=== PATIENT | male | born 1935 | race Caucasian/White ===

== ENCOUNTER 2016-11-29 14:04 | Outpatient (CLI) | payer MEDICARE, OTHER | END 2016-11-29 14:05 | disposition home or self-care (01) | DX: G47.33 Obstructive sleep apnea (adult) (pediatric) (principal) | CPT/HCPCS: 99214; G0463 ==

== ENCOUNTER 2016-12-31 11:24 | Outpatient (CLI) | payer MEDICARE, OTHER ==
[2016-12-31] MEDS ORDERED: GADOBUTROL 7.5 MMOL/7.5 ML VIAL IVP ONE (12:46)
== END 2016-12-31 11:25 | disposition home or self-care (01) ==
DX: I66.01 Occlusion and stenosis of right middle cerebral artery (principal); I77.9 Disorder of arteries and arterioles, unspecified; I65.22 Occlusion and stenosis of left carotid artery; Z79.1 Long term (current) use of non-steroidal anti-inflammatories (NSAID); R26.0 Ataxic gait
CPT/HCPCS: 36415; 70544; 70549; 82565; A9585

== ENCOUNTER 2017-09-05 08:00 | Outpatient (CLI) | payer MEDICARE, OTHER ==
[2017-09-05 13:57] LABS: BASOPHILS # (AUTO) 0.1 10^3/uL (0.0-0.1); BASOPHILS % (AUTO) 0.9 %; EOSINOPHILS # (AUTO) 0.3 10^3/uL (0.0-0.7); EOSINOPHILS % (AUTO) 5.2 %; HCT - HEMATOCRIT 28.5 % (42.0-52.0); HGB - HEMOGLOBIN 9.5 g/dL (14.0-18.0); LYMPHOCYTES # (AUTO) 1.1 10^3/uL (1.5-3.5); LYMPHOCYTES % (AUTO) 17.3 %; MEAN CORPUSCULAR HEMOGLOBIN 31.3 pg (27.0-31.0); MEAN CORPUSCULAR HGB CONC 33.3 g/dL (32.0-36.0); MEAN PLATELET VOLUME 7.8 fL (7.4-11.4); MONOCYTES # (AUTO) 0.8 10^3/uL (0.0-1.0); MONOCYTES % (AUTO) 12.2 %; NEUTROPHILS # (AUTO) 4.2 10^3/uL (1.5-6.6); NEUTROPHILS % (AUTO) 64.4 %; RED BLOOD COUNT 3.03 10^6/uL (4.70-6.10); RED CELL DISTRIBUTION WIDTH 13.7 % (12.0-15.0); UNCORRECTED WHITE BLOOD COUNT 6.5 x10^3/uL; WHITE BLOOD COUNT 6.5 x10^3/uL (4.8-10.8)
[2017-09-05 14:25] LABS: ALBUMIN/GLOBULIN RATIO 1.1 (1.0-2.2); BILIRUBIN,TOTAL 0.4 mg/dL (0.2-1.0); BUN - BLOOD UREA NITROGEN 31 mg/dL (6-20); CALCIUM 9.1 mg/dL (8.5-10.3); CARBON DIOXIDE - CO2 25 mmol/L (21-32); CHLORIDE 105 mmol/L (101-111); CHOL/HDL RATIO 3.4 (<5.0); CHOLESTEROL 120 mg/dL; CREATININE 1.5 mg/dL (0.6-1.2); GFR - MDRD 45 (>89); GLUCOSE 131 mg/dL (70-100); HDL CHOLESTEROL 35 mg/dL; LDL/HDL RATIO 1.8 (<3.6); POTASSIUM 4.6 mmol/L (3.5-5.0); SODIUM 138 mmol/L (135-145); TOTAL PROTEIN 7.2 g/dL (6.7-8.2); TRIGLYCERIDES 115 mg/dL; VLDL CHOLESTEROL 23 mg/dL
[2017-09-05 14:47] LABS: HEMOGLOBIN A1C 0.4 g/dL
== END 2017-09-05 08:01 | disposition home or self-care (01) ==
LOC: LAB.N 08:00
PROVIDERS: ATTEND Internal Medicine
DX: D64.9 Anemia, unspecified (principal); E11.49 Type 2 diabetes mellitus with other diabetic neurological complication; N40.0 Benign prostatic hyperplasia without lower urinary tract symptoms; I10 Essential (primary) hypertension
CPT/HCPCS: 36415; 80053; 80061; 83036; 84443; 85025

== ENCOUNTER 2017-12-09 09:14 | Outpatient (CLI) | payer MEDICARE, OTHER ==
[2017-12-09 12:53] LABS: MEAN RETIC VALUE 110.3; RED BLOOD COUNT 3.11 10^6/uL (4.70-6.10)
[2017-12-09 13:03] LABS: FERRITIN 53.6 ng/mL (23.9-336.2)
== END 2017-12-09 09:15 | disposition home or self-care (01) ==
LOC: LAB.N 09:14
PROVIDERS: ATTEND Internal Medicine
DX: D64.9 Anemia, unspecified (principal)
CPT/HCPCS: 36415; 82607; 82728; 83010; 85044; 86880

== ENCOUNTER 2017-12-27 13:09 | Outpatient (CLI) | payer MEDICARE, OTHER | END 2017-12-27 13:10 | disposition home or self-care (01) | LOC: SC 13:09 | PROVIDERS: ATTEND Nurse Practitioner Family | DX: G47.33 Obstructive sleep apnea (adult) (pediatric) (principal) | CPT/HCPCS: 99214; G0463; 99212 ==

== ENCOUNTER 2018-08-02 18:37 | Outpatient (CLI) | payer MEDICARE, OTHER | END 2018-08-02 18:38 | disposition short-term general hospital (02) | LOC: EMS 18:37 | PROVIDERS: ATTEND Surgery | DX: R11.2 Nausea with vomiting, unspecified (principal); R50.9 Fever, unspecified | CPT/HCPCS: A0425; A0429 ==

== ENCOUNTER 2019-01-10 12:58 | Outpatient (CLI) | payer MEDICARE, OTHER | END 2019-01-10 12:59 | disposition home or self-care (01) | LOC: SC 12:58 | PROVIDERS: ATTEND Nurse Practitioner Family | DX: G47.33 Obstructive sleep apnea (adult) (pediatric) (principal) | CPT/HCPCS: 99214; G0463; 99212 ==

== ENCOUNTER 2020-01-02 10:45 | Outpatient (CLI) | payer MEDICARE, OTHER ==
[2020-01-02 12:39] LABS: HB2 TOTAL 9.6 g/dL; HEMOGLOBIN A1C 0.52 g/dL; HEMOGLOBIN A1C % 7.1 % (4.6-6.2)
== END 2020-01-02 23:59 | disposition home or self-care (01) ==
LOC: LAB.N 10:45
PROVIDERS: ATTEND Family Medicine
DX: E11.49 Type 2 diabetes mellitus with other diabetic neurological complication (principal)
CPT/HCPCS: 36415; 83036

== ENCOUNTER 2020-01-09 12:46 | Outpatient (CLI) | payer MEDICARE, OTHER ==
[2020-01-09 13:38] VITALS: BP 150/60
--- NOTE | 2020-01-09 13:38 | SLEEP CARE CONSULTATION ---
Information from patient questionnaire entered by Yanet Ellis. I have reviewed and concur with the information entered by Yanet Ellis. This document represents the service I personally performed and the decisions made by me, Marilou Acosta, RN, MSN, WAREHOUSE ORDER SELECTOR. History of Present Illness Previous diagnosis: Mild, Obstructive Sleep Apnea-Hypopnea Syndrome AHI: 7.9 Reason for follow up: annual (last seen 2019) Equipment type: CPAP Equipment obtained from: [facility] (having difficulty getting supplies despite repeated attempts) Mask style: Nasal (Wisp) Mask brand: Respironics Backup mask available: Yes (old full face ) Last cushion change: about a year CPAP Compliance Data - Data Reviewed with Patient Average duration of nightly device use: 7.2 Compliance rate %: 88.9 (180 days) Current pressure setting (cmH2O): 10-12 Humidity settin Heated hose settin Average residual AHI: 2.3 Average large leak: 14 min 47 sec the past month when hose disconnects Subjective Patient concerns: reports: mask leak noise (when hose disconnects the last few weeks ), condensation in mask/hose (occasionally - last time a few weeks ago ), dry mouth, nose, throat (nose and mouth - moderate intermittently ). denies: aerophagia, mask discomfort, air blowing in eyes, nasal congestion, epistaxis Observed to snore while using device: No Current pressure setting perceived as: comfortable On therapy, patient: reports: sleeping better, awakening more refreshed, being more awake and alert during the day, more rested overall. denies: drowsiness while driving Initial Prosper Sleepiness Scale score: 4 Current Prosper Sleepiness Scale score: 10 (not using CPAP for 2 weeks due to hose problems ) Allergies and Home Medications Known drug allergies: No Home medication list reviewed: Yes Allergy and home medication list: Medication List Medication Name (generic/name brand) Strength & Dosage Metformin 850mg tab one daily Glipizide 5mg tab one daily Lisinopril 10mg tablet 1 daily Methotrexate 2.5mg tab four once weekly Finesteride 5mg tablet 1 daily Tamsulosin 0.4mg tab one daily Centrum Silver Tab one daily Vitamin C 1000mg tab one daily Zinc 15mg tab one daily Vitamin B complex Tab one daily Folic Acid 400mg tab two daily salmon oil 1 daily garlic 1 daily Physical Exam Blood Pressure: 150/60 Cuff size: long Heart Rate: 72 O2 Saturation: 98 Height: 6 ft Weight: 196 lb 12.8 oz Body Mass Index: 26.6 BMI Classification: Overweight Impression and Plan 1. Obstructive Sleep Apnea-Hypopnea Syndrome, mild, with good treatment compliance and good apnea control. On CPAP therapy, the patient has better sleep quality and is more rested overall when he uses it. The last 2 weeks he has not been using his CPAP due to hose disconnecting from mask and is tired today. His supplies are old as he is unable to get [facility] to order. For patient supply concerns. Patient was notified that another DME can be used. I will have my skill training program coordinator inform of DME options. A DWO prescription will then be made. Patient advised to contact this office if further supply problems. Questions about supplies and replacement were answered. In addition, I gave patient a copy of the CPAP supply replacement schedule and discussed rationale for updating equipment. Oral dryness can be reduced by adjusting humidity setting higher to 4 or 5 and can also adjust heated hose lower to 2 if needed. Printed instructions given on how to change humidity and heated hose settings with rationale explaining why to change. Oral dryness can also be reduced by reducing mask leaks. Patient advised that chronic oral dryness can affect dental health and advised to follow up with dentist. In addition, there are oral dryness products that can be used to reduce dryness such as Biotene products, Dry mouth rinse. Patient to discuss best option with dentist. He is also advised to use his saline nasal spray prior to CPAP for added moisture to reduce nasal dryness. Patient's apnea severity and rationale for treatment to reduce apnea, improve sleep quality and reduce cardiovascular and cerebrovascular events was reviewed. I also reviewed the benefit of consistent device use of CPAP for hypertension, diabetes. * Continue CPAP pressure at 10-12 cmH2O * Implement methods to reduce oral and nasal dryness * Transfer to new DME * Notify me if snoring with mask or feeling that the pressure is too much or too little * Attempt to lose weight * Call this office if any problems using CPAP * Return for follow up in 1 year , or sooner if concerns arise Time Spent with Patient (minutes): 31 I spent 100% of this visit face to face with the patient with greater than 50% of this was spent time counseling the patient and coordination of care.
== END 2020-01-09 12:47 | disposition home or self-care (01) ==
LOC: SC 12:46
PROVIDERS: ATTEND Nurse Practitioner Family
DX: G47.33 Obstructive sleep apnea (adult) (pediatric) (principal); E66.3 Overweight; Z68.26 Body mass index [BMI] 26.0-26.9, adult
CPT/HCPCS: 99214; G0463; 99212

== ENCOUNTER 2020-02-14 13:30 | Outpatient (CLI) | payer MEDICARE, OTHER | END 2020-02-14 13:31 | disposition EMS.NT | LOC: EMS 13:30 | PROVIDERS: ATTEND Surgery | DX: R73.09 Other abnormal glucose (principal) ==

== ENCOUNTER 2020-06-16 14:24 | Outpatient (CLI) | payer MEDICARE, OTHER | END 2020-06-16 14:25 | disposition EMS.NT | LOC: EMS 14:24 | PROVIDERS: ATTEND Surgery | DX: R41.82 Altered mental status, unspecified (principal); R53.1 Weakness; R73.09 Other abnormal glucose ==

== ENCOUNTER 2021-12-02 16:41 | Outpatient (CLI) | payer MEDICARE, OTHER | END 2021-12-02 16:42 | disposition EMS.NT | LOC: EMS 16:41 | DX: M54.50 Low back pain, unspecified (principal); R53.1 Weakness ==

== ENCOUNTER 2021-12-07 10:16 | Outpatient (CLI) | payer MEDICARE, OTHER | END 2021-12-07 10:17 | disposition short-term general hospital (02) | LOC: EMS 10:16 | DX: R53.1 Weakness (principal); R42 Dizziness and giddiness | CPT/HCPCS: A0425; A0429 ==

== ENCOUNTER 2023-04-23 07:04 | Outpatient (CLI) | payer MEDICARE, OTHER | END 2023-04-23 07:05 | disposition critical access hospital (66) | LOC: EMS 07:04 | DX: R53.1 Weakness (principal); R42 Dizziness and giddiness; R26.81 Unsteadiness on feet; R32 Unspecified urinary incontinence; R63.8 Other symptoms and signs concerning food and fluid intake | CPT/HCPCS: A0425; A0429 ==

== ENCOUNTER 2023-04-23 07:39 | Inpatient (IN) | payer MEDICARE, OTHER ==
[2023-04-23] MEDS ORDERED: SODIUM CHLORIDE 0.9% 1,000 ML IV STA ×2 (07:54→08:58)
--- NOTE | 2023-04-23 07:57 | ED Physician Documentation ---
PD HPI FOCAL NEURO - Stated complaint Stated Complaint: Weakness - History obtained from History obtained from: Patient, EMS (noted urination on bed. no stool. They felt left arm was weaker. Pt unable to stand on his own.) - History of Present Illness Timing - onset: Yesterday Timing - duration: Hours (somewhere 12-18 hours) Timing - details: Gradual onset Severity of deficit: Moderate (he noted onset and progression of general weakness, with some more symptoms left arm/leg than right, but weak overall as well. he states unable to get from bed to bathroom starting yesterday due to leg weakness.) Weakness: Arm, Leg, Left. No: Face Numbness: No: Face, Arm, Leg Associated symptoms: No: Headache, Nausea / vomiting (but has decreased appetite for the past week with poor food intake, and he states less fluids (mostly drinking coffee).), Syncope Contributing factors: positive: Other (he states just lisinopril med for BP. Denies other meds nor recent change in meds.). negative: Vascular dz, Atrial fibrillation Baseline status: positive: A&OX3, ambulatory, indep Similar symptoms before: Has not had sx before Recently seen: Not recently seen Review of Systems Constitutional: reports: Fatigue, Weight Loss (16 lbs in the past 2 months, gradual. But he states has had less appetite during that time, and particularly the past week.). denies: Fever Nose: denies: Rhinorrhea / runny nose, Congestion Throat: denies: Sore throat Cardiac: denies: Chest pain / pressure Respiratory: denies: Dyspnea, Cough : denies: Dysuria PD PAST MEDICAL HISTORY - Past Medical History Cardiovascular: Hypertension, High cholesterol Respiratory: Sleep apnea, Other Endocrine/Autoimmune: Type 2 diabetes : Benign prostate hypertrophy Derm: Psoriasis - Past Surgical History Past Surgical History: Yes - Present Medications Home Medications: Ambulatory Orders Medication Instructions Recorded Confirmed Finasteride 1 tab PO DAILY 06/28/15 08/06/20 Metformin HCl 850 mg PO BID 06/28/15 08/06/20 Methotrexate [Methotrexate Sodium] 10 tab PO DAILY 06/28/15 08/06/20 Tamsulosin [Flomax] 1 tab PO DAILY 06/28/15 08/06/20 glipiZIDE [Glipizide] 5 mg PO BID 06/28/15 08/06/20 lisinopriL [Lisinopril] 10 mg PO DAILY 06/28/15 08/06/20 Melatonin 3 mg PO DAILY PRN 03/05/19 04/23/23 Losartan Potassium 25 mg PO DAILY 04/23/23 04/23/23 - Allergies Allergies/Adverse Reactions: Allergies Allergy/AdvReac Type Severity Reaction Status Date / Time No Known Drug Allergies Allergy Verified 04/23/23 07:47 - Social History Does the pt smoke?: No Smoking Status: Never smoker Does the pt drink ETOH?: No Does the pt have substance abuse?: No - Immunizations Immunizations are current?: No Immunizations: TDAP >10years/unknown - POLST Patient has POLST: Yes PD ED PE NORMAL - Vitals Vital signs reviewed: Yes - General General: Alert and oriented X 3, No acute distress, Other (shaky with some tremoring generally. ). No: Well developed/nourished (appears thin but still muscle tone. ) - HEENT HEENT: Pharynx benign. No: Moist mucous membranes - Neck Neck: Supple, no meningeal sign, No adenopathy - Cardiac Cardiac: RRR, No murmur - Respiratory Respiratory: Clear bilaterally - Abdomen Abdomen: Soft, Non tender - Male Male : Deferred - Rectal Rectal: Deferred - Derm Derm: Normal color, Warm and dry - Extremities Extremities: Normal ROM s pain, No edema, No calf tenderness / cord - Neuro Neuro: Alert and oriented X 3, machine setter 2-12 intact, No sensory deficit, Normal speech, Other (left arm with some drift, left leg as well. No noted facial weakness. ) Eye Opening: Spontaneous Motor: Obeys Commands Verbal: Oriented GCS Score: 15 NIHSS - Level of Consciousness Level of consciousness: (0) Alert, Keenly responsive LOC Questions: (0) Answers both Q's correct LOC Commands: (0) Performs both correctly - Gaze Best Gaze: (0) Normal - Visual Visual: (0) No loss - Facial Palsy Facial Palsy: (0) Normal, symmetrical movement - Motor Arms (both separate) Motor Arm (right): (0) No drift Motor Arm (left): (1) Drift - Motor Legs (both separate) Motor Leg (right): (0) No drift Motor Leg (left): (1) Drift - Limb Ataxia Limb Ataxia: (1) Present in 1 limb - Sensory Sensory: (0) Normal - Best Language Best Language: (0) No aphasia - Dysarthria Dysarthria: (0) Normal - Extinction and Inattention (formally neg Extinction and inattention: (0) No abnormality - Total Score/Results Total Score/Result: 3 Results - Vitals Vitals: Vital Signs - 24 hr 04/23/23 04/23/23 04/23/23 07:47 08:46 11:11 Temperature 36.9 C Heart Rate 82 108 H 83 Respiratory 22 16 19 Rate Blood Pressure 139/101 H 141/66 H 185/88 H O2 Saturation 99 100 100 Oxygen O2 Source Room air - EKG (time done) 08:07 EKG releavant findings:: EKG personally interpreted by author of this note. Relevant findings are: Rate: Rate (enter#) (83) Rhythm: NSR, Other (baseline tremor artifact) [place]: Normal Intervals: Prolonged AL Ischemia: Normal ST segments. No: ST elevation c/w ischemia Compare to prior EKG: Old EKG unavailable Computer interpretation: Disagree with computer - Labs Labs: Laboratory Tests 04/23/23 04/23/23 04/23/23 08:06 08:06 08:06 WBC 14.0 H RBC 3.50 L Hgb 10.1 L Hct 32.4 L MCV 92.6 MCH 28.9 MCHC 31.2 L RDW 14.2 Plt Count 307 MPV 9.4 Neut # (Auto) 11.1 H Lymph # (Auto) 1.2 L [place] # (Auto) 1.4 H Eos # (Auto) 0.2 Baso # (Auto) 0.1 Absolute Nucleated RBC 0.00 Nucleated RBC % 0.0 Sodium 140 Potassium 4.0 Chloride 108 Carbon Dioxide 26 Anion Gap 6.0 BUN 34 H Creatinine 1.6 H Estimated GFR (MDRD) 41 L Glucose 132 H Lactic Acid 1.1 Calcium 8.9 Magnesium 1.8 Total Bilirubin 0.5 AST 30 ALT 17 Alkaline Phosphatase 75 Total Protein 7.6 Albumin 3.8 Globulin 3.8 Albumin/Globulin Ratio 1.0 Lipase 45 TSH Urine Color Urine Clarity Urine pH Ur Specific [place] Urine Protein Urine Glucose (UA) Urine Ketones Urine Occult Blood Urine Nitrite Urine Bilirubin Urine Urobilinogen Ur Leukocyte Esterase Ur Microscopic Review Urine Culture Comments Nasal Adenovirus (PCR) Nasal B. parapertussis DNA (PCR) Nasal Coronavir 229E PCR Nasal Coronavir HKU1 PCR Nasal Coronavir NL63 PCR Nasal Coronavir OC43 PCR Nasal Enterovir/Rhinovir PCR Nasal Influenza B PCR Nasal Influenza A PCR Nasal Parainfluen 1 PCR Nasal Parainfluen 2 PCR Nasal Parainfluen 3 PCR Nasal Parainfluen 4 PCR Nasal RSV (PCR) Nasal B.pertussis DNA PCR Nasal C.pneumoniae (PCR) Louie Human Metapneumo PCR Nasal M.pneumoniae (PCR) Nasal SARS-CoV-2 (PCR) 04/23/23 04/23/23 04/23/23 08:06 08:10 08:15 WBC RBC Hgb Hct MCV MCH MCHC RDW Plt Count MPV Neut # (Auto) Lymph # (Auto) [place] # (Auto) Eos # (Auto) Baso # (Auto) Absolute Nucleated RBC Nucleated RBC % Sodium Potassium Chloride Carbon Dioxide Anion Gap BUN Creatinine Estimated GFR (MDRD) Glucose Lactic Acid Calcium Magnesium Total Bilirubin AST ALT Alkaline Phosphatase Total Protein Albumin Globulin Albumin/Globulin Ratio Lipase TSH 1.65 Urine Color YELLOW Urine Clarity CLEAR Urine pH 6.0 Ur Specific [place] 1.010 Urine Protein TRACE Urine Glucose (UA) NEGATIVE Urine Ketones NEGATIVE Urine Occult Blood TRACE-INTA Urine Nitrite NEGATIVE Urine Bilirubin NEGATIVE Urine Urobilinogen 0.2 (NORMAL) Ur Leukocyte Esterase NEGATIVE Ur Microscopic Review NOT INDICATED Urine Culture Comments NOT INDICATED Nasal Adenovirus (PCR) NOT DETECTED Nasal B. parapertussis DNA (PCR) NOT DETECTED Nasal Coronavir 229E PCR NOT DETECTED Nasal Coronavir HKU1 PCR NOT DETECTED Nasal Coronavir NL63 PCR NOT DETECTED Nasal Coronavir OC43 PCR NOT DETECTED Nasal Enterovir/Rhinovir PCR NOT DETECTED Nasal Influenza B PCR NOT DETECTED Nasal Influenza A PCR NOT DETECTED Nasal Parainfluen 1 PCR NOT DETECTED Nasal Parainfluen 2 PCR NOT DETECTED Nasal Parainfluen 3 PCR NOT DETECTED Nasal Parainfluen 4 PCR NOT DETECTED Nasal RSV (PCR) NOT DETECTED Nasal B.pertussis DNA PCR NOT DETECTED Nasal C.pneumoniae (PCR) NOT DETECTED Louie Human Metapneumo PCR NOT DETECTED Nasal M.pneumoniae (PCR) NOT DETECTED Nasal SARS-CoV-2 (PCR) NOT DETECTED - Rads (name of study) head CT Relevant Findings:: Prelim report reviewed (no acute abnormalities), EMP independent interpretation of test, See rad report brain MRI Relevant Findings:: Prelim report reviewed (multiple small acute infarcts right MCA distribution. ), See rad report chest xray Relevant Findings:: Prelim report reviewed, EMP independent interpretation of test (no acute process), See rad report PD Medical Decision Making - ED course Complexity details: reviewed results, considered differential (Regarding poor appetite, weight loss, general weakness, consideration of metabolic disorders versus an infection versus thyroid or diabetes. He does seem under hydrated. Then with the parent left arm and leg weakness, consider concomitant CVA or brain structural abnormality.) ED course: The patient with onset yesterday and worsening overnight of left-sided weakness of arm and leg. No other notable symptoms. No prior similar. Evaluation here for metabolic disorders as well as rhythm disturbance or infections as not found other obvious cofactors. Chest x-ray is clear. Respiratory panel is normal. Basic blood count shows anemia but at a baseline level. There is mild renal insufficiency 1.4 creatinine but is at a baseline level compared to prior labs. No major electrolyte problems. The head CT did not show any acute abnormalities. We were able to get an MRI of the brain at this time. It took a few hours but able to get it done this morning. It did show several small infarcts in the right MCA distribution. Consideration would be a major vessel occlusion that broke up into small pieces but has not present as an LVO right now. Other consideration would be embolic and needs evaluation for that. Speaking against the embolic idea would be that they are all in the MCA d istribution and not scattered throughout. At this point in consultation with the hospitalist, we would just go with the thrombotic dual antiplatelet treatment for now. He is in a sinus rhythm. I do not hear murmurs. There is no obvious bruits. He will need carotid studies as well. His level of disability is mild at a NIH stroke scale of 3. He is outside the window for of timing for thrombolytics and does not have a large vessel occlusion for endovascular. Still needs evaluation of carotids and presumably echo. He will need OT and PT. He does not live at home and with some caregivers. He has a cane and a walker at home which is general strength issues. Family members live in the area. Departure - Departure Disposition: 66 [facility] DC/Xfer Clinical Impression: Acute right MCA stroke, Acute left-sided weakness Condition: Stable Record reviewed to determine appropriate education?: Yes
[2023-04-23 08:13] LABS: BASOPHILS # (AUTO) 0.1 10^3/uL (0.0-0.1); BASOPHILS % (AUTO) 0.5 %; EOSINOPHILS # (AUTO) 0.2 10^3/uL (0.0-0.7); EOSINOPHILS % (AUTO) 1.6 %; HCT - HEMATOCRIT 32.4 % (42.0-52.0); HGB - HEMOGLOBIN 10.1 g/dL (14.0-18.0); LYMPHOCYTES # (AUTO) 1.2 10^3/uL (1.5-3.5); LYMPHOCYTES % (AUTO) 8.6 %; MEAN CORPUSCULAR HEMOGLOBIN 28.9 pg (27.0-31.0); MEAN CORPUSCULAR HGB CONC 31.2 g/dL (32.0-36.0); MEAN CORPUSCULAR VOLUME 92.6 fL (80.0-94.0); MEAN PLATELET VOLUME 9.4 fL (7.4-11.4); MONOCYTES # (AUTO) 1.4 10^3/uL (0.0-1.0); MONOCYTES % (AUTO) 9.7 %; NEUTROPHILS # (AUTO) 11.1 10^3/uL (1.5-6.6); NEUTROPHILS % (AUTO) 79.2 %; PLT - PLATELET COUNT 307 10^3/uL (130-450); RED CELL DISTRIBUTION WIDTH 14.2 % (12.0-15.0)
[2023-04-23 08:23] LABS: BILIRUBIN,URINE NEGATIVE (NEGATIVE); GLUCOSE, URINE (UA) NEGATIVE (NEGATIVE); KETONES,URINE (UA) NEGATIVE (NEGATIVE); LEUKOCYTE ESTERASE, URINE NEGATIVE (NEGATIVE); NITRITE,URINE NEGATIVE (NEGATIVE); OCCULT BLOOD,URINE TRACE-INTA (NEGATIVE); PROTEIN,URINE TRACE mg/dL (NEGATIVE); UROBILINOGEN,URINE 0.2 (NORMAL) E.U./dL (NORMAL)
[2023-04-23 08:24] LABS: CLARITY,URINE CLEAR (CLEAR)
--- NOTE | 2023-04-23 08:37 | CT Report ---
PROCEDURE: HEAD WO INDICATIONS: left weakness since yesterday TECHNIQUE: Noncontrast 4.5 mm thick angled axial sections acquired from the foramen magnum to the vertex. For r adiation dose reduction, the following was used: automated exposure control, adjustment of mA and/or kV according to patient size. COMPARISON: 09/08/2016 and 10/13/2016 FINDINGS: Image quality: Excellent. CSF spaces: Basal cisterns are patent. No extra-axial fluid collections. The ventricles are symmet terry in size and shape. Brain: No intracranial bleeds or masses. There is cerebral volume loss for age, with resultant vent ricular and sulcal prominence. There are periventricular and deep white matter chronic small vessel ischemic changes. There is intracranial internal carotid artery atherosclerosis. Skull and face: Calvarium and visualized facial bones appear intact, without suspicious lesions. Sinuses: Visualized sinuses and mastoids are clear. IMPRESSION: No CT evidence of acute intracranial abnormalities. Reviewed by: Yonathan Sanchez MD on 04/23/2023 8:36 AM PDT Approved by: Yonathan Sanchez MD on 04/23/2023 8:36 AM PDT Station ID: [id number]
[2023-04-23 08:51] LABS: ALBUMIN 3.8 g/dL (3.2-5.5); BILIRUBIN,TOTAL 0.5 mg/dL (0.2-1.0); CALCIUM 8.9 mg/dL (8.5-10.3); CREATININE 1.6 mg/dL (0.6-1.2); MAGNESIUM 1.8 mg/dL (1.7-2.8); TOTAL PROTEIN 7.6 g/dL (6.7-8.2)
--- NOTE | 2023-04-23 08:52 | XRAY Report ---
PROCEDURE: Chest 1 View X-Ray INDICATIONS: weakness TECHNIQUE: One view of the chest was acquired. COMPARISON: 06/28/2015 FINDINGS: Surgical changes and devices: None. Lungs and pleura: No pleural effusions or pneumothorax. Lungs are clear. Mediastinum: Mediastinal contours appear normal. Heart size is normal. Bones and chest wall: No suspicious bony lesions. Overlying soft tissues appear unremarkable. IMPRESSION: No acute cardiopulmonary process. Reviewed by: Yonathan Sanchez MD on 04/23/2023 8:51 AM PDT Approved by: Yonathan Sanchez MD on 04/23/2023 8:51 AM PDT Station ID: [id number]
--- OUTSIDE RECORDS SUMMARY | 2023-04-23 08:57 | EXTERNAL MEDICAL SUMMARY RPT | Continuity of Care Document ---
Author Name Unknown Address [address] [place] [address] Phone Organization [facility] Address [address] [place] [address] Phone Care Team Providers Care Firearms Expert Name Role Phone Zachary Mullins Unavailable Unavailable Problems date description facility 2023-02-28 13:15 Type 2 diabetes mellitus withou t complications [facility] 2023-02-28 13:15 Essential (primary) hypertensio n [facility] 2023-02-28 13:15 Chronic kidney disease, stage 3 a [facility] Results/Labs test date author facility value unit interpretation Result panel 1 (unknown) (no date) (unknown) All (no value) (units unknown) (unknown) Result panel 2 (unknown) (no date) (unknown) All (no value) (units unknown) (unknown) Result panel 3 (unknown) (no date) (unknown) All (no value) (units unknown) (unknown) Result panel 4 (unknown) (no date) (unknown) All (no value) (units unknown) (unknown) Result panel 5 (unknown) (no date) (unknown) All (no value) (units unknown) (unknown) Result panel 6 (unknown) (no date) (unknown) All (no value) (units unknown) (unknown) Result panel 7 (unknown) (no date) (unknown) All (no value) (units unknown) (unknown) Result panel 8 (unknown) (no date) (unknown) [facility] (no value) (units unknown) (unknown) Result panel 9 (unknown) (no date) (unknown) [facility] (no value) (units unknown) (unknown) Result panel 10 (unknown) (no date) (unknown) [facility] (no value) (units unknown) (unknown) Result panel 11 (unknown) (no date) (unknown) [facility] (no value) (units unknown) (unknown) Result panel 12 (unknown) (no date) (unknown) All (no value) (units unknown) (unknown) Result panel 13 (unknown) (no date) (unknown) [facility] (no value) (units unknown) (unknown) Result panel 14 (unknown) (no date) (unknown) [facility] (no value) (units unknown) (unknown) Result panel 15 (unknown) (no date) (unknown) [facility] (no value) (units unknown) (unknown) Result panel 16 (unknown) (no date) (unknown) [facility] (no value) (units unknown) (unknown) Result panel 17 (unknown) (no date) (unknown) [facility] (no value) (units unknown) (unknown) Result panel 18 (unknown) (no date) (unknown) [facility] (no value) (units unknown) (unknown) Result panel 19 (unknown) (no date) (unknown) [facility] (no value) (units unknown) (unknown) Result panel 20 (unknown) (no date) (unknown) [facility] (no value) (units unknown) (unknown) Result panel 21 (unknown) (no date) (unknown) [facility] (no value) (units unknown) (unknown) Result panel 22 (unknown) (no date) (unknown) [facility] (no value) (units unknown) (unknown) Result panel 23 (unknown) (no date) (unknown) All (no value) (units unknown) (unknown) Result panel 24 (unknown) (no date) (unknown) [facility] (no value) (units unknown) (unknown) Result panel 25 (unknown) (no date) (unknown) [facility] (no value) (units unknown) (unknown) Result panel 26 (unknown) (no date) (unknown) All (no value) (units unknown) (unknown) Result panel 27 (unknown) (no date) (unknown) All (no value) (units unknown) (unknown) Result panel 28 (unknown) (no date) (unknown) All (no value) (units unknown) (unknown) Result panel 29 (unknown) (no date) (unknown) All (no value) (units unknown) (unknown) Result panel 30 (unknown) (no date) (unknown) All (no value) (units unknown) (unknown) Result panel 31 (unknown) (no date) (unknown) All (no value) (units unknown) (unknown) Result panel 32 (unknown) (no date) (unknown) (unknown) 6.2 % 4548-4 (unknown) (no date) (unknown) (unknown) 6.2 % (unknown ) Result panel 33 (unknown) (no date) (unknown) (unknown) 0.3 mg/dl (unknown ) (unknown) (no date) (unknown) (unknown) 1.3 (units unknown) (unknown) (unknown) (no date) (unknown) (unknown) 1.78 mg/dl (unknown ) (unknown) (no date) (unknown) (unknown) 105 mmol/l (unknown ) (unknown) (no date) (unknown) (unknown) 140 mmol/l (unknown ) (unknown) (no date) (unknown) (unknown) 15 iu/l (unknown ) (unknown) (no date) (unknown) (unknown) 16.9 (units unknown) (unknown) (unknown) (no date) (unknown) (unknown) 19 iu/l (unknown ) (unknown) (no date) (unknown) (unknown) 24 mmol/l (unknown ) (unknown) (no date) (unknown) (unknown) 3.5 g/dl (unknown ) (unknown) (no date) (unknown) (unknown) 30 mg/dl (unknown ) (unknown) (no date) (unknown) (unknown) 37 ml/min (unknown ) (unknown) (no date) (unknown) (unknown) 37 ml/min (unknown ) (unknown) (no date) (unknown) (unknown) 4.4 g/dl (unknown ) (unknown) (no date) (unknown) (unknown) 4.5 mmol/l (unknown ) (unknown) (no date) (unknown) (unknown) 7.9 g/dl (unknown ) (unknown) (no date) (unknown) (unknown) 8.7 mg/dl (unknown ) (unknown) (no date) (unknown) (unknown) 80 u/l (unknown ) (unknown) (no date) (unknown) (unknown) 97 mg/dl (unknown ) (unknown) (no date) (unknown) (unknown) 97 mg/dl (unknown ) Result panel 34 (unknown) (no date) (unknown) (unknown) 6.2 % (unknown ) (unknown) (no date) (unknown) (unknown) 6.2 % (unknown ) Result panel 35 (unknown) (no date) (unknown) (unknown) (no value) (units unknown) (unknown) (unknown) (no date) (unknown) (unknown) 04/12/23 (units unknown) (unknown) (unknown) (no date) (unknown) (unknown) 11/02/22 [Rx Confirmed 04/12/23] (units unknown) (unknown) (unknown) (no date) (unknown) (unknown) [id number] (units unknown) (unknown) (unknown) (no date) (unknown) (unknown) Age/Sex: 87 / M Date of Service: (units unknown) (unknown) (unknown) (no date) (unknown) (unknown) Allergies (units unknown) (unknown) (unknown) (no date) (unknown) (unknown) [facility] [address] (units unknown) (unknown) (unknown) (no date) (unknown) (unknown) Anemia (units unknown) (unknown) (unknown) (no date) (unknown) (unknown) Attending Dr: Zachary Mullins MD (units unknown) (unknown) (unknown) (no date) (unknown) (unknown) Chronic renal failure, stage 3a (units unknown) (unknown) (unknown) (no date) (unknown) (unknown) : 7 Acct:[id number] (units unknown) (unknown) (unknown) (no date) (unknown) (unknown) Dept at . (units unknown) (unknown) (unknown) (no date) (unknown) (unknown) Diabetes type 2, controlled (units unknown) (unknown) (unknown) (no date) (unknown) (unknown) Disabled Katia gutiérrez #1 ea 12/20/22 [Rx Confirmed 04/12/23] (units unknown) (unknown) (unknown) (no date) (unknown) (unknown) Documented By: Zachary Mullins MD 04/12/23 1110 (units unknown) (unknown) (unknown) (no date) (unknown) (unknown) Draft (units unknown) (unknown) (unknown) (no date) (unknown) (unknown) Essential hypertension (units unknown) (unknown) (unknown) (no date) (unknown) (unknown) Family History (Updated 05/28/22 @ 15:51 by Zachary Mullins MD) (units unknown) (unknown) (unknown) (no date) (unknown) (unknown) [facility] (units unknown) (unknown) (unknown) (no date) (unknown) (unknown) Follow Up Meds /Med Check (units unknown) (unknown) (unknown) (no date) (unknown) (unknown) Intake Note: (units unknown) (unknown) (unknown) (no date) (unknown) (unknown) Intake perform ed by: Jennifer Jesus (units unknown) (unknown) (unknown) (no date) (unknown) (unknown) Intake (units unknown) (unknown) (unknown) (no date) (unknown) (unknown) Intake- Luis E al Staff (units unknown) (unknown) (unknown) (no date) (unknown) (unknown) Internal Medic ine Office Visit (units unknown) (unknown) (unknown) (no date) (unknown) (unknown) Loc: [facility] (units unknown) (unknown) (unknown) (no date) (unknown) (unknown) Male circumcision (u nits unknown) (unknown) (unknown) (no date) (unknown) (unknown) Medical Histor y (Updated 11/02/22 @ 15:44 by Zachary Mullins MD) (units unknown) (unknown) (unknown) (no date) (unknown) (unknown) Medications (units unknown) (unknown) (unknown) (no date) (unknown) (unknown) Mild cognitive impairment (units unknown) (unknown) (unknown) (no date) (unknown) (unknown) Mother Cancer (units unknown) (unknown) (unknown) (no date) (unknown) (unknown) No Known Drug Allergies Allergy (Verified 04/12/23 11:10) (units unknown) (unknown) (unknown) (no date) (unknown) (unknown) No pertinent p ast surgical history (units unknown) (unknown) (unknown) (no date) (unknown) (unknown) PFSH (units unknown) (unknown) (unknown) (no date) (unknown) (unknown) Patient: Raudel Bull MR#: [id number] (units unknown) (unknown) (unknown) (no date) (unknown) (unknown) Psoriasis (units unknown) (unknown) (unknown) (no date) (unknown) (unknown) Reason For Visit (un its unknown) (unknown) (unknown) (no date) (unknown) (unknown) Recheck Labs - done 03/17/23 (units unknown) (unknown) (unknown) (no date) (unknown) (unknown) Review/Discuss. (uni ts unknown) (unknown) (unknown) (no date) (unknown) (unknown) Signed By: (units unknown) (unknown) (unknown) (no date) (unknown) (unknown) Smoking Status : Former smoker (units unknown) (unknown) (unknown) (no date) (unknown) (unknown) Social History (unit s unknown) (unknown) (unknown) (no date) (unknown) (unknown) Surgical Histo ry (Updated 05/28/22 @ 15:50 by Zachary Mullins MD) (units unknown) (unknown) (unknown) (no date) (unknown) (unknown) This note may have been all or partially generated using voice recognition (units unknown) (unknown) (unknown) (no date) (unknown) (unknown) Tobacco + Substance Use (units unknown) (unknown) (unknown) (no date) (unknown) (unknown) Tobacco Status (unit s unknown) (unknown) (unknown) (no date) (unknown) (unknown) Visit Reasons: Recheck labs/med check 05 (units unknown) (unknown) (unknown) (no date) (unknown) (unknown) alcohol intake : former (units unknown) (unknown) (unknown) (no date) (unknown) (unknown) have occurred. If there are any questions, please contact the Medical Records (units unknown) (unknown) (unknown) (no date) (unknown) (unknown) household memb ers: spouse (units unknown) (unknown) (unknown) (no date) (unknown) (unknown) losartan 100 mg-hydrochlorothia zide 12.5 mg tablet 1 tab PO DAILY #90 tabs (units unknown) (unknown) (unknown) (no date) (unknown) (unknown) may occur. Occasional wrong-word or 'sound-alike' substitutions may have (units unknown) (unknown) (unknown) (no date) (unknown) (unknown) occurred due t o the inherent limitations of voice recognition software. Please (units unknown) (unknown) (unknown) (no date) (unknown) (unknown) read the note carefully and recognize, using context, where these substitutions (units unknown) (unknown) (unknown) (no date) (unknown) (unknown) software. Alth ough every effort is made to edit content, twister hand errors (units unknown) (unknown) Result panel 36 (unknown) (no date) (unknown) (unknown) (no value) (units unknown) (unknown) (unknown) (no date) (unknown) (unknown) 04/12/23 (units unknown) (unknown) (unknown) (no date) (unknown) (unknown) 11:14 (units unknown) (unknown) (unknown) (no date) (unknown) (unknown) 11/02/22 [Rx Confirmed 04/12/23] (units unknown) (unknown) (unknown) (no date) (unknown) (unknown) [id number] (units unknown) (unknown) (unknown) (no date) (unknown) (unknown) Accompanied by : Granddaughter (units unknown) (unknown) (unknown) (no date) (unknown) (unknown) Age/Sex: 87 / M Date of Service: (units unknown) (unknown) (unknown) (no date) (unknown) (unknown) Allergies (units unknown) (unknown) (unknown) (no date) (unknown) (unknown) [place] [address] (units unknown) (unknown) (unknown) (no date) (unknown) (unknown) Anemia (units unknown) (unknown) (unknown) (no date) (unknown) (unknown) Attending Dr: Zachary Mullins MD (units unknown) (unknown) (unknown) (no date) (unknown) (unknown) BMI 21.6 (units unknown) (unknown) (unknown) (no date) (unknown) (unknown) BP 120/64 (units unknown) (unknown) (unknown) (no date) (unknown) (unknown) Blood Pressure Location Lt brachial (units unknown) (unknown) (unknown) (no date) (unknown) (unknown) Chronic renal failure, stage 3a (units unknown) (unknown) (unknown) (no date) (unknown) (unknown) : 7 Acct:[id number] (units unknown) (unknown) (unknown) (no date) (unknown) (unknown) Dept at . (units unknown) (unknown) (unknown) (no date) (unknown) (unknown) Diabetes type 2, controlled (units unknown) (unknown) (unknown) (no date) (unknown) (unknown) Disabled Katia gutiérrez #1 ea 12/20/22 [Rx Confirmed 04/12/23] (units unknown) (unknown) (unknown) (no date) (unknown) (unknown) Documented By: Zachary Mullins MD 04/12/23 1110 (units unknown) (unknown) (unknown) (no date) (unknown) (unknown) Draft (units unknown) (unknown) (unknown) (no date) (unknown) (unknown) Essential hypertension (units unknown) (unknown) (unknown) (no date) (unknown) (unknown) Family History (Updated 05/28/22 @ 15:51 by Zachary Mullins MD) (units unknown) (unknown) (unknown) (no date) (unknown) (unknown) [facility] (units unknown) (unknown) (unknown) (no date) (unknown) (unknown) Follow Up Meds /Med Check (units unknown) (unknown) (unknown) (no date) (unknown) (unknown) Height 6 ft (units unknown) (unknown) (unknown) (no date) (unknown) (unknown) Intake Note: (units unknown) (unknown) (unknown) (no date) (unknown) (unknown) Intake perform ed by: Jennifer Jesus (units unknown) (unknown) (unknown) (no date) (unknown) (unknown) Intake (units unknown) (unknown) (unknown) (no date) (unknown) (unknown) Intake- Luis E al Staff (units unknown) (unknown) (unknown) (no date) (unknown) (unknown) Internal Medic ine Office Visit (units unknown) (unknown) (unknown) (no date) (unknown) (unknown) Loc: [facility] (units unknown) (unknown) (unknown) (no date) (unknown) (unknown) Male circumcision (u nits unknown) (unknown) (unknown) (no date) (unknown) (unknown) Medical Histor y (Updated 11/02/22 @ 15:44 by Zachary Mullins MD) (units unknown) (unknown) (unknown) (no date) (unknown) (unknown) Medications (units unknown) (unknown) (unknown) (no date) (unknown) (unknown) Mild cognitive impairment (units unknown) (unknown) (unknown) (no date) (unknown) (unknown) Mother Cancer (units unknown) (unknown) (unknown) (no date) (unknown) (unknown) No Known Drug Allergies Allergy (Verified 04/12/23 11:10) (units unknown) (unknown) (unknown) (no date) (unknown) (unknown) No pertinent p ast surgical history (units unknown) (unknown) (unknown) (no date) (unknown) (unknown) Oxygen Deliver y Method room air (units unknown) (unknown) (unknown) (no date) (unknown) (unknown) PFSH (units unknown) (unknown) (unknown) (no date) (unknown) (unknown) Patient states that he does not have much of an appetite. (units unknown) (unknown) (unknown) (no date) (unknown) (unknown) Patient: Raudel Bull Andrei MR#: [id number] (units unknown) (unknown) (unknown) (no date) (unknown) (unknown) Position Sitting (un its unknown) (unknown) (unknown) (no date) (unknown) (unknown) Psoriasis (units unknown) (unknown) (unknown) (no date) (unknown) (unknown) Pulse 65 (units unknown) (unknown) (unknown) (no date) (unknown) (unknown) Pulse Oximetry (%) 99 (units unknown) (unknown) (unknown) (no date) (unknown) (unknown) Pulse Source Monitor (units unknown) (unknown) (unknown) (no date) (unknown) (unknown) Reason For Visit (un its unknown) (unknown) (unknown) (no date) (unknown) (unknown) Recheck Labs - done 03/17/23 (units unknown) (unknown) (unknown) (no date) (unknown) (unknown) Review/Discuss. (uni ts unknown) (unknown) (unknown) (no date) (unknown) (unknown) Signed By: (units unknown) (unknown) (unknown) (no date) (unknown) (unknown) Smoking Status : Former smoker (units unknown) (unknown) (unknown) (no date) (unknown) (unknown) Social History (unit s unknown) (unknown) (unknown) (no date) (unknown) (unknown) Surgical Histo ry (Updated 05/28/22 @ 15:50 by Zachary Mullins MD) (units unknown) (unknown) (unknown) (no date) (unknown) (unknown) This note may have been all or partially generated using voice recognition (units unknown) (unknown) (unknown) (no date) (unknown) (unknown) Times where he forgets to eat - doesn't remember (units unknown) (unknown) (unknown) (no date) (unknown) (unknown) Tobacco + Substance Use (units unknown) (unknown) (unknown) (no date) (unknown) (unknown) Tobacco Status (unit s unknown) (unknown) (unknown) (no date) (unknown) (unknown) Visit Reasons: Recheck labs/med check 05 (units unknown) (unknown) (unknown) (no date) (unknown) (unknown) Vitals (units unknown) (unknown) (unknown) (no date) (unknown) (unknown) Weight 159 lb 8 oz ( units unknown) (unknown) (unknown) (no date) (unknown) (unknown) alcohol intake : former (units unknown) (unknown) (unknown) (no date) (unknown) (unknown) have occurred. If there are any questions, please contact the Medical Records (units unknown) (unknown) (unknown) (no date) (unknown) (unknown) household memb ers: spouse (units unknown) (unknown) (unknown) (no date) (unknown) (unknown) losartan 100 mg-hydrochlorothia zide 12.5 mg tablet 1 tab PO DAILY #90 tabs (units unknown) (unknown) (unknown) (no date) (unknown) (unknown) may occur. Occasional wrong-word or 'sound-alike' substitutions may have (units unknown) (unknown) (unknown) (no date) (unknown) (unknown) occurred due t o the inherent limitations of voice recognition software. Please (units unknown) (unknown) (unknown) (no date) (unknown) (unknown) read the note carefully and recognize, using context, where these substitutions (units unknown) (unknown) (unknown) (no date) (unknown) (unknown) software. Alth ough every effort is made to edit content, twister hand errors (units unknown) (unknown) Result panel 37 (unknown) (no date) (unknown) (unknown) (no value) (units unknown) (unknown) (unknown) (no date) (unknown) (unknown) (1) Chronic re nal failure, stage 3a: (units unknown) (unknown) (unknown) (no date) (unknown) (unknown) (2) Essential hypertension: (units unknown) (unknown) (unknown) (no date) (unknown) (unknown) (3) Diabetes t ype 2, controlled: (units unknown) (unknown) (unknown) (no date) (unknown) (unknown) (4) Mild cogni tive impairment: (units unknown) (unknown) (unknown) (no date) (unknown) (unknown) (5) Weight loss: (un its unknown) (unknown) (unknown) (no date) (unknown) (unknown) 04/12/23 (units unknown) (unknown) (unknown) (no date) (unknown) (unknown) 11:14 (units unknown) (unknown) (unknown) (no date) (unknown) (unknown) 11/02/22 [Rx Confirmed 04/12/23] (units unknown) (unknown) (unknown) (no date) (unknown) (unknown) [id number] (units unknown) (unknown) (unknown) (no date) (unknown) (unknown) Accompanied by : Granddaughter (units unknown) (unknown) (unknown) (no date) (unknown) (unknown) Age/Sex: 87 / M Date of Service: (units unknown) (unknown) (unknown) (no date) (unknown) (unknown) Allergies (units unknown) (unknown) (unknown) (no date) (unknown) (unknown) [place] [address] (units unknown) (unknown) (unknown) (no date) (unknown) (unknown) Anemia (units unknown) (unknown) (unknown) (no date) (unknown) (unknown) Assessment + Plan (u nits unknown) (unknown) (unknown) (no date) (unknown) (unknown) Attending Dr: Zachary Mullins MD (units unknown) (unknown) (unknown) (no date) (unknown) (unknown) BMI 21.6 (units unknown) (unknown) (unknown) (no date) (unknown) (unknown) BP 120/64 (units unknown) (unknown) (unknown) (no date) (unknown) (unknown) Basically feel ing fine doing fine no complaints issues problems (units unknown) (unknown) (unknown) (no date) (unknown) (unknown) Blood Pressure Location Lt brachial (units unknown) (unknown) (unknown) (no date) (unknown) (unknown) Blood pressure excellent here today maybe related in part to the weight loss but (units unknown) (unknown) (unknown) (no date) (unknown) (unknown) Chief Complain t: Follow-up blood pressure etcetera (units unknown) (unknown) (unknown) (no date) (unknown) (unknown) Chronic renal failure, stage 3a (units unknown) (unknown) (unknown) (no date) (unknown) (unknown) : 7 Acct:[id number] (units unknown) (unknown) (unknown) (no date) (unknown) (unknown) Dept at . (units unknown) (unknown) (unknown) (no date) (unknown) (unknown) Diabetes [facility] insulin use: without nursing home use Diabetes (units unknown) (unknown) (unknown) (no date) (unknown) (unknown) Diabetes type 2, controlled (units unknown) (unknown) (unknown) (no date) (unknown) (unknown) Disabled Katia gutiérrez #1 ea 12/20/22 [Rx Confirmed 04/12/23] (units unknown) (unknown) (unknown) (no date) (unknown) (unknown) Documented By: Zachary Mullins MD 04/12/23 1110 (units unknown) (unknown) (unknown) (no date) (unknown) (unknown) Draft (units unknown) (unknown) (unknown) (no date) (unknown) (unknown) Essential hypertension (units unknown) (unknown) (unknown) (no date) (unknown) (unknown) Family History (Updated 05/28/22 @ 15:51 by Zachary Mullins MD) (units unknown) (unknown) (unknown) (no date) (unknown) (unknown) [facility] (units unknown) (unknown) (unknown) (no date) (unknown) (unknown) Follow Up Meds /Med Check (units unknown) (unknown) (unknown) (no date) (unknown) (unknown) Height 6 ft (units unknown) (unknown) (unknown) (no date) (unknown) (unknown) Intake Note: (units unknown) (unknown) (unknown) (no date) (unknown) (unknown) Intake perform ed by: Jennifer Jesus (units unknown) (unknown) (unknown) (no date) (unknown) (unknown) Intake (units unknown) (unknown) (unknown) (no date) (unknown) (unknown) Intake- Luis E al Staff (units unknown) (unknown) (unknown) (no date) (unknown) (unknown) Internal Medic ine Office Visit (units unknown) (unknown) (unknown) (no date) (unknown) (unknown) Loc: [facility] (units unknown) (unknown) (unknown) (no date) (unknown) (unknown) Male circumcision (u nits unknown) (unknown) (unknown) (no date) (unknown) (unknown) Medical Histor y (Updated 11/02/22 @ 15:44 by Zachary Mullins MD) (units unknown) (unknown) (unknown) (no date) (unknown) (unknown) Medications (units unknown) (unknown) (unknown) (no date) (unknown) (unknown) Mild cognitive impairment (units unknown) (unknown) (unknown) (no date) (unknown) (unknown) Mother Cancer (units unknown) (unknown) (unknown) (no date) (unknown) (unknown) No Known Drug Allergies Allergy (Verified 04/12/23 11:10) (units unknown) (unknown) (unknown) (no date) (unknown) (unknown) No changes mad e today. Plan to see him back in 3 months with no labs prior do (units unknown) (unknown) (unknown) (no date) (unknown) (unknown) No pertinent p ast surgical history (units unknown) (unknown) (unknown) (no date) (unknown) (unknown) Note (units unknown) (unknown) (unknown) (no date) (unknown) (unknown) Note: (units unknown) (unknown) (unknown) (no date) (unknown) (unknown) Notes (units unknown) (unknown) (unknown) (no date) (unknown) (unknown) Oxygen Deliver y Method room air (units unknown) (unknown) (unknown) (no date) (unknown) (unknown) PFSH (units unknown) (unknown) (unknown) (no date) (unknown) (unknown) Patient is her e to follow-up on blood pressure blood sugars etcetera (units unknown) (unknown) (unknown) (no date) (unknown) (unknown) Patient states that he does not have much of an appetite. (units unknown) (unknown) (unknown) (no date) (unknown) (unknown) Patient's weig ht loss likely secondary to lack of caloric intake. Discussed (units unknown) (unknown) (unknown) (no date) (unknown) (unknown) Patient: Raudel Bull MR#: [id number] (units unknown) (unknown) (unknown) (no date) (unknown) (unknown) Plan (units unknown) (unknown) (unknown) (no date) (unknown) (unknown) Position Sitting (un its unknown) (unknown) (unknown) (no date) (unknown) (unknown) Psoriasis (units unknown) (unknown) (unknown) (no date) (unknown) (unknown) Pulse 65 (units unknown) (unknown) (unknown) (no date) (unknown) (unknown) Pulse Oximetry (%) 99 (units unknown) (unknown) (unknown) (no date) (unknown) (unknown) Pulse Source Monitor (units unknown) (unknown) (unknown) (no date) (unknown) (unknown) Qualifiers: (units unknown) (unknown) (unknown) (no date) (unknown) (unknown) Reason For Visit (un its unknown) (unknown) (unknown) (no date) (unknown) (unknown) Recheck Labs - done 03/17/23 (units unknown) (unknown) (unknown) (no date) (unknown) (unknown) Renal function remained stable over time technically most recent blood test (units unknown) (unknown) (unknown) (no date) (unknown) (unknown) Review/Discuss. (uni ts unknown) (unknown) (unknown) (no date) (unknown) (unknown) Says he does n ot have much of an appetite indeed his weight is down several (units unknown) (unknown) (unknown) (no date) (unknown) (unknown) Signed By: (units unknown) (unknown) (unknown) (no date) (unknown) (unknown) Smoking Status : Former smoker (units unknown) (unknown) (unknown) (no date) (unknown) (unknown) Social History (unit s unknown) (unknown) (unknown) (no date) (unknown) (unknown) Status: Chronic (uni ts unknown) (unknown) (unknown) (no date) (unknown) (unknown) Surgical Histo ry (Updated 05/28/22 @ 15:50 by Zachary Mullins MD) (units unknown) (unknown) (unknown) (no date) (unknown) (unknown) This note may have been all or partially generated using voice recognition (units unknown) (unknown) (unknown) (no date) (unknown) (unknown) Times where he forgets to eat - doesn't remember (units unknown) (unknown) (unknown) (no date) (unknown) (unknown) Tobacco + Substance Use (units unknown) (unknown) (unknown) (no date) (unknown) (unknown) Tobacco Status (unit s unknown) (unknown) (unknown) (no date) (unknown) (unknown) 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 (units unknown) (unknown) (unknown) (no date) (unknown) (unknown) Visit Reasons: Recheck labs/med check 05 (units unknown) (unknown) (unknown) (no date) (unknown) (unknown) Vitals (units unknown) (unknown) (unknown) (no date) (unknown) (unknown) Weight 72.348 kg (un its unknown) (unknown) (unknown) (no date) (unknown) (unknown) alcohol intake : former (units unknown) (unknown) (unknown) (no date) (unknown) (unknown) any weight ivan k but certainly would want him to lose any from here would like to (units unknown) (unknown) (unknown) (no date) (unknown) (unknown) been at with a creatinine between 1.4 and 1.9 previously he is at 1.7 most (units unknown) (unknown) (unknown) (no date) (unknown) (unknown) have occurred. If there are any questions, please contact the Medical Records (units unknown) (unknown) (unknown) (no date) (unknown) (unknown) household memb ers: spouse (units unknown) (unknown) (unknown) (no date) (unknown) (unknown) keep his BMI o talia 20 for sure (units unknown) (unknown) (unknown) (no date) (unknown) (unknown) kilos. BMI sti ll okay at 21.6 (units unknown) (unknown) (unknown) (no date) (unknown) (unknown) labs the follo wing visit probably presumably 3 months later (units unknown) (unknown) (unknown) (no date) (unknown) (unknown) losartan 100 mg-hydrochlorothia zide 12.5 mg tablet 1 tab PO DAILY #90 tabs (units unknown) (unknown) (unknown) (no date) (unknown) (unknown) may occur. Occasional wrong-word or 'sound-alike' substitutions may have (units unknown) (unknown) (unknown) (no date) (unknown) (unknown) mellitus complication status: without complication Qualified Code(s): E11.9 (units unknown) (unknown) (unknown) (no date) (unknown) (unknown) occurred due t o the inherent limitations of voice recognition software. Please (units unknown) (unknown) (unknown) (no date) (unknown) (unknown) overall things seem to be okay there (units unknown) (unknown) (unknown) (no date) (unknown) (unknown) read the note carefully and recognize, using context, where these substitutions (units unknown) (unknown) (unknown) (no date) (unknown) (unknown) recently (units unknown) (unknown) (unknown) (no date) (unknown) (unknown) shakes and I t hink that is fine on some sort of semi regular basis. Keeping his (units unknown) (unknown) (unknown) (no date) (unknown) (unknown) shows slight b ump in his creatinine but as well within the usual range he has (units unknown) (unknown) (unknown) (no date) (unknown) (unknown) software. Alth ough every effort is made to edit content, twister hand errors (units unknown) (unknown) (unknown) (no date) (unknown) (unknown) weight right w here it is would be perfect I do not know that he needs to gain (units unknown) (unknown) (unknown) (no date) (unknown) (unknown) with him that given that his blood sugar is so very well controlled as it is (units unknown) (unknown) (unknown) (no date) (unknown) (unknown) with his A1c a t 6.2 can liberalize his diet somewhat. He asked about milk (units unknown) (unknown) Result panel 38 (unknown) (no date) (unknown) (unknown) (no value) (units unknown) (unknown) (unknown) (no date) (unknown) (unknown) (1) Chronic re nal failure, stage 3a: (units unknown) (unknown) (unknown) (no date) (unknown) (unknown) (2) Essential hypertension: (units unknown) (unknown) (unknown) (no date) (unknown) (unknown) (3) Diabetes t ype 2, controlled: (units unknown) (unknown) (unknown) (no date) (unknown) (unknown) (4) Mild cogni tive impairment: (units unknown) (unknown) (unknown) (no date) (unknown) (unknown) (5) Weight loss: (un its unknown) (unknown) (unknown) (no date) (unknown) (unknown) - Type 2 diabe minh mellitus without complications (units unknown) (unknown) (unknown) (no date) (unknown) (unknown) 04/12/23 (units unknown) (unknown) (unknown) (no date) (unknown) (unknown) 11:14 (units unknown) (unknown) (unknown) (no date) (unknown) (unknown) 11/02/22 [Rx Confirmed 04/12/23] (units unknown) (unknown) (unknown) (no date) (unknown) (unknown) [id number] (units unknown) (unknown) (unknown) (no date) (unknown) (unknown) Accompanied by : Granddaughter (units unknown) (unknown) (unknown) (no date) (unknown) (unknown) Age/Sex: 87 / M Date of Service: (units unknown) (unknown) (unknown) (no date) (unknown) (unknown) Allergies (units unknown) (unknown) (unknown) (no date) (unknown) (unknown) [place] [id number] (units unknown) (unknown) (unknown) (no date) (unknown) (unknown) Anemia (units unknown) (unknown) (unknown) (no date) (unknown) (unknown) Assessment + Plan (u nits unknown) (unknown) (unknown) (no date) (unknown) (unknown) Attending Dr: Zachary Mullins MD (units unknown) (unknown) (unknown) (no date) (unknown) (unknown) BMI 21.6 (units unknown) (unknown) (unknown) (no date) (unknown) (unknown) BP 120/64 (units unknown) (unknown) (unknown) (no date) (unknown) (unknown) Basically feel ing fine doing fine no complaints issues problems (units unknown) (unknown) (unknown) (no date) (unknown) (unknown) Blood Pressure Location Lt brachial (units unknown) (unknown) (unknown) (no date) (unknown) (unknown) Blood pressure excellent here today maybe related in part to the weight loss but (units unknown) (unknown) (unknown) (no date) (unknown) (unknown) Chief Complain t: Follow-up blood pressure [facility] (units unknown) (unknown) (unknown) (no date) (unknown) (unknown) Chronic renal failure, stage 3a (units unknown) (unknown) (unknown) (no date) (unknown) (unknown) : 7 Acct:[id number] (units unknown) (unknown) (unknown) (no date) (unknown) (unknown) Dept at . (units unknown) (unknown) (unknown) (no date) (unknown) (unknown) Diabetes [facility] complication status: without complication Diabetes (units unknown) (unknown) (unknown) (no date) (unknown) (unknown) Diabetes type 2, controlled (units unknown) (unknown) (unknown) (no date) (unknown) (unknown) Disabled Katia gutiérrez #1 ea 12/20/22 [Rx Confirmed 04/12/23] (units unknown) (unknown) (unknown) (no date) (unknown) (unknown) Documented By: Zachary Mullins MD 04/12/23 1110 (units unknown) (unknown) (unknown) (no date) (unknown) (unknown) Draft (units unknown) (unknown) (unknown) (no date) (unknown) (unknown) Essential hypertension (units unknown) (unknown) (unknown) (no date) (unknown) (unknown) Family History (Updated 05/28/22 @ 15:51 by Zachary Mullins MD) (units unknown) (unknown) (unknown) (no date) (unknown) (unknown) [facility] (units unknown) (unknown) (unknown) (no date) (unknown) (unknown) Follow Up Meds /Med Check (units unknown) (unknown) (unknown) (no date) (unknown) (unknown) Height 6 ft (units unknown) (unknown) (unknown) (no date) (unknown) (unknown) Intake Note: (units unknown) (unknown) (unknown) (no date) (unknown) (unknown) Intake perform ed by: Jennifer Jesus (units unknown) (unknown) (unknown) (no date) (unknown) (unknown) Intake (units unknown) (unknown) (unknown) (no date) (unknown) (unknown) Intake- Luis E al Staff (units unknown) (unknown) (unknown) (no date) (unknown) (unknown) Internal Medic ine Office Visit (units unknown) (unknown) (unknown) (no date) (unknown) (unknown) Loc: [facility] (units unknown) (unknown) (unknown) (no date) (unknown) (unknown) Male circumcision (u nits unknown) (unknown) (unknown) (no date) (unknown) (unknown) Medical Histor y (Updated 11/02/22 @ 15:44 by Zachary Mullins MD) (units unknown) (unknown) (unknown) (no date) (unknown) (unknown) Medications (units unknown) (unknown) (unknown) (no date) (unknown) (unknown) Mild cognitive impairment (units unknown) (unknown) (unknown) (no date) (unknown) (unknown) Mother Cancer (units unknown) (unknown) (unknown) (no date) (unknown) (unknown) No Known Drug Allergies Allergy (Verified 04/12/23 11:10) (units unknown) (unknown) (unknown) (no date) (unknown) (unknown) No changes mad e today. Plan to see him back in 3 months with no labs prior do (units unknown) (unknown) (unknown) (no date) (unknown) (unknown) No pertinent p ast surgical history (units unknown) (unknown) (unknown) (no date) (unknown) (unknown) Note (units unknown) (unknown) (unknown) (no date) (unknown) (unknown) Note: (units unknown) (unknown) (unknown) (no date) (unknown) (unknown) Notes (units unknown) (unknown) (unknown) (no date) (unknown) (unknown) Oxygen Deliver y Method room air (units unknown) (unknown) (unknown) (no date) (unknown) (unknown) PFSH (units unknown) (unknown) (unknown) (no date) (unknown) (unknown) Patient is her e to follow-up on blood pressure blood sugars [facility]a (units unknown) (unknown) (unknown) (no date) (unknown) (unknown) Patient states that he does not have much of an appetite. (units unknown) (unknown) (unknown) (no date) (unknown) (unknown) Patient's weig ht loss likely secondary to lack of caloric intake. Discussed (units unknown) (unknown) (unknown) (no date) (unknown) (unknown) Patient: Raudel Bull MR#: [id number] (units unknown) (unknown) (unknown) (no date) (unknown) (unknown) Plan (units unknown) (unknown) (unknown) (no date) (unknown) (unknown) Position Sitting (un its unknown) (unknown) (unknown) (no date) (unknown) (unknown) Psoriasis (units unknown) (unknown) (unknown) (no date) (unknown) (unknown) Pulse 65 (units unknown) (unknown) (unknown) (no date) (unknown) (unknown) Pulse Oximetry (%) 99 (units unknown) (unknown) (unknown) (no date) (unknown) (unknown) Pulse Source Monitor (units unknown) (unknown) (unknown) (no date) (unknown) (unknown) Qualifiers: (units unknown) (unknown) (unknown) (no date) (unknown) (unknown) Reason For Visit (un its unknown) (unknown) (unknown) (no date) (unknown) (unknown) Recheck Labs - done 03/17/23 (units unknown) (unknown) (unknown) (no date) (unknown) (unknown) Renal function remained stable over time technically most recent blood test (units unknown) (unknown) (unknown) (no date) (unknown) (unknown) Review/Discuss. (uni ts unknown) (unknown) (unknown) (no date) (unknown) (unknown) Says he does n ot have much of an appetite indeed his weight is down several (units unknown) (unknown) (unknown) (no date) (unknown) (unknown) Signed By: (units unknown) (unknown) (unknown) (no date) (unknown) (unknown) Smoking Status : Former smoker (units unknown) (unknown) (unknown) (no date) (unknown) (unknown) Social History (unit s unknown) (unknown) (unknown) (no date) (unknown) (unknown) Status: Chronic (uni ts unknown) (unknown) (unknown) (no date) (unknown) (unknown) Surgical Histo ry (Updated 05/28/22 @ 15:50 by Zachary Mullins MD) (units unknown) (unknown) (unknown) (no date) (unknown) (unknown) This note may have been all or partially generated using voice recognition (units unknown) (unknown) (unknown) (no date) (unknown) (unknown) Times where he forgets to eat - doesn't remember (units unknown) (unknown) (unknown) (no date) (unknown) (unknown) Tobacco + Substance Use (units unknown) (unknown) (unknown) (no date) (unknown) (unknown) Tobacco Status (unit s unknown) (unknown) (unknown) (no date) (unknown) (unknown) Visit Reasons: Recheck labs/med check 05 (units unknown) (unknown) (unknown) (no date) (unknown) (unknown) Vitals (units unknown) (unknown) (unknown) (no date) (unknown) (unknown) Weight 159 lb 8 oz ( units unknown) (unknown) (unknown) (no date) (unknown) (unknown) alcohol intake : former (units unknown) (unknown) (unknown) (no date) (unknown) (unknown) any weight ivan k but certainly would want him to lose any from here would like to (units unknown) (unknown) (unknown) (no date) (unknown) (unknown) been at with a creatinine between 1.4 and 1.9 previously he is at 1.7 most (units unknown) (unknown) (unknown) (no date) (unknown) (unknown) have occurred. If there are any questions, please contact the Medical Records (units unknown) (unknown) (unknown) (no date) (unknown) (unknown) household memb ers: spouse (units unknown) (unknown) (unknown) (no date) (unknown) (unknown) keep his BMI o talia 20 for sure (units unknown) (unknown) (unknown) (no date) (unknown) (unknown) kilos. BMI sti ll okay at 21.6 (units unknown) (unknown) (unknown) (no date) (unknown) (unknown) labs the follo wing visit probably presumably 3 months later (units unknown) (unknown) (unknown) (no date) (unknown) (unknown) losartan 100 mg-hydrochlorothia zide 12.5 mg tablet 1 tab PO DAILY #90 tabs (units unknown) (unknown) (unknown) (no date) (unknown) (unknown) may occur. Occasional wrong-word or 'sound-alike' substitutions may have (units unknown) (unknown) (unknown) (no date) (unknown) (unknown) mellitus nursing home insulin use: without compliance officer use Qualified Code(s): E11.9 (units unknown) (unknown) (unknown) (no date) (unknown) (unknown) occurred due t o the inherent limitations of voice recognition software. Please (units unknown) (unknown) (unknown) (no date) (unknown) (unknown) overall things seem to be okay there (units unknown) (unknown) (unknown) (no date) (unknown) (unknown) read the note carefully and recognize, using context, where these substitutions (units unknown) (unknown) (unknown) (no date) (unknown) (unknown) recently (units unknown) (unknown) (unknown) (no date) (unknown) (unknown) shakes and I t hink that is fine on some sort of semi regular basis. Keeping his (units unknown) (unknown) (unknown) (no date) (unknown) (unknown) shows slight b ump in his creatinine but as well within the usual range he has (units unknown) (unknown) (unknown) (no date) (unknown) (unknown) software. Alth ough every effort is made to edit content, twister hand errors (units unknown) (unknown) (unknown) (no date) (unknown) (unknown) weight right w here it is would be perfect I do not know that he needs to gain (units unknown) (unknown) (unknown) (no date) (unknown) (unknown) with him that given that his blood sugar is so very well controlled as it is (units unknown) (unknown) (unknown) (no date) (unknown) (unknown) with his A1c a t 6.2 can liberalize his diet somewhat. He asked about milk (units unknown) (unknown) Result panel 39 (unknown) (no date) (unknown) (unknown) (no value) (units unknown) (unknown) (unknown) (no date) (unknown) (unknown) (1) Chronic re nal failure, stage 3a: (units unknown) (unknown) (unknown) (no date) (unknown) (unknown) (2) Essential hypertension: (units unknown) (unknown) (unknown) (no date) (unknown) (unknown) (3) Diabetes t ype 2, controlled: (units unknown) (unknown) (unknown) (no date) (unknown) (unknown) (4) Mild cogni tive impairment: (units unknown) (unknown) (unknown) (no date) (unknown) (unknown) (5) Weight loss: (un its unknown) (unknown) (unknown) (no date) (unknown) (unknown) - Type 2 diabe minh mellitus without complications (units unknown) (unknown) (unknown) (no date) (unknown) (unknown) 04/12/23 1500 (units unknown) (unknown) (unknown) (no date) (unknown) (unknown) 04/12/23 (units unknown) (unknown) (unknown) (no date) (unknown) (unknown) 11:14 (units unknown) (unknown) (unknown) (no date) (unknown) (unknown) 11/02/22 [Rx Confirmed 04/12/23] (units unknown) (unknown) (unknown) (no date) (unknown) (unknown) [id number] (units unknown) (unknown) (unknown) (no date) (unknown) (unknown) Accompanied by : Granddaughter (units unknown) (unknown) (unknown) (no date) (unknown) (unknown) Age/Sex: 87 / M Date of Service: (units unknown) (unknown) (unknown) (no date) (unknown) (unknown) Allergies (units unknown) (unknown) (unknown) (no date) (unknown) (unknown) [place] [address] (units unknown) (unknown) (unknown) (no date) (unknown) (unknown) Anemia (units unknown) (unknown) (unknown) (no date) (unknown) (unknown) Assessment + Plan (u nits unknown) (unknown) (unknown) (no date) (unknown) (unknown) Attending Dr: Zachary Mullins MD (units unknown) (unknown) (unknown) (no date) (unknown) (unknown) BMI 21.6 (units unknown) (unknown) (unknown) (no date) (unknown) (unknown) BP 120/64 (units unknown) (unknown) (unknown) (no date) (unknown) (unknown) Basically feel ing fine doing fine no complaints issues problems (units unknown) (unknown) (unknown) (no date) (unknown) (unknown) Blood Pressure Location Lt brachial (units unknown) (unknown) (unknown) (no date) (unknown) (unknown) Blood pressure excellent here today maybe related in part to the weight loss but (units unknown) (unknown) (unknown) (no date) (unknown) (unknown) Chief Complain t: Follow-up blood pressure [facility] (units unknown) (unknown) (unknown) (no date) (unknown) (unknown) Chronic renal failure, stage 3a (units unknown) (unknown) (unknown) (no date) (unknown) (unknown) : 7 Acct:[id number] (units unknown) (unknown) (unknown) (no date) (unknown) (unknown) Dept at . (units unknown) (unknown) (unknown) (no date) (unknown) (unknown) Diabetes [facility] complication status: without complication Diabetes (units unknown) (unknown) (unknown) (no date) (unknown) (unknown) Diabetes type 2, controlled (units unknown) (unknown) (unknown) (no date) (unknown) (unknown) Disabled Katia ng #1 ea 12/20/22 [Rx Confirmed 04/12/23] (units unknown) (unknown) (unknown) (no date) (unknown) (unknown) Documented By: Zachary Mullins MD 04/12/23 1110 (units unknown) (unknown) (unknown) (no date) (unknown) (unknown) Essential hypertension (units unknown) (unknown) (unknown) (no date) (unknown) (unknown) Family History (Updated 05/28/22 @ 15:51 by Zachary Mullins MD) (units unknown) (unknown) (unknown) (no date) (unknown) (unknown) [facility] (units unknown) (unknown) (unknown) (no date) (unknown) (unknown) Follow Up Meds /Med Check (units unknown) (unknown) (unknown) (no date) (unknown) (unknown) Height 6 ft (units unknown) (unknown) (unknown) (no date) (unknown) (unknown) Intake Note: (units unknown) (unknown) (unknown) (no date) (unknown) (unknown) Intake perform ed by: Jennifer Jesus (units unknown) (unknown) (unknown) (no date) (unknown) (unknown) Intake (units unknown) (unknown) (unknown) (no date) (unknown) (unknown) Intake- Luis E al Staff (units unknown) (unknown) (unknown) (no date) (unknown) (unknown) Internal Medic ine Office Visit (units unknown) (unknown) (unknown) (no date) (unknown) (unknown) Loc: [facility] (units unknown) (unknown) (unknown) (no date) (unknown) (unknown) Male circumcision (u nits unknown) (unknown) (unknown) (no date) (unknown) (unknown) Medical Histor y (Updated 11/02/22 @ 15:44 by Zachary Mullins MD) (units unknown) (unknown) (unknown) (no date) (unknown) (unknown) Medications (units unknown) (unknown) (unknown) (no date) (unknown) (unknown) Mild cognitive impairment (units unknown) (unknown) (unknown) (no date) (unknown) (unknown) Mother Cancer (units unknown) (unknown) (unknown) (no date) (unknown) (unknown) No Known Drug Allergies Allergy (Verified 04/12/23 11:10) (units unknown) (unknown) (unknown) (no date) (unknown) (unknown) No changes mad e today. Plan to see him back in 3 months with no labs prior do (units unknown) (unknown) (unknown) (no date) (unknown) (unknown) No pertinent p ast surgical history (units unknown) (unknown) (unknown) (no date) (unknown) (unknown) Note (units unknown) (unknown) (unknown) (no date) (unknown) (unknown) Note: (units unknown) (unknown) (unknown) (no date) (unknown) (unknown) Notes (units unknown) (unknown) (unknown) (no date) (unknown) (unknown) Oxygen Deliver y Method room air (units unknown) (unknown) (unknown) (no date) (unknown) (unknown) PFSH (units unknown) (unknown) (unknown) (no date) (unknown) (unknown) Patient is her e to follow-up on blood pressure blood sugars [facility] (units unknown) (unknown) (unknown) (no date) (unknown) (unknown) Patient states that he does not have much of an appetite. (units unknown) (unknown) (unknown) (no date) (unknown) (unknown) Patient's weig ht loss likely secondary to lack of caloric intake. Discussed (units unknown) (unknown) (unknown) (no date) (unknown) (unknown) Patient: Raudel Bull MR#: [id number] (units unknown) (unknown) (unknown) (no date) (unknown) (unknown) Plan (units unknown) (unknown) (unknown) (no date) (unknown) (unknown) Position Sitting (un its unknown) (unknown) (unknown) (no date) (unknown) (unknown) Psoriasis (units unknown) (unknown) (unknown) (no date) (unknown) (unknown) Pulse 65 (units unknown) (unknown) (unknown) (no date) (unknown) (unknown) Pulse Oximetry (%) 99 (units unknown) (unknown) (unknown) (no date) (unknown) (unknown) Pulse Source Monitor (units unknown) (unknown) (unknown) (no date) (unknown) (unknown) Qualifiers: (units unknown) (unknown) (unknown) (no date) (unknown) (unknown) Reason For Visit (un its unknown) (unknown) (unknown) (no date) (unknown) (unknown) Recheck Labs - done 03/17/23 (units unknown) (unknown) (unknown) (no date) (unknown) (unknown) Renal function remained stable over time technically most recent blood test (units unknown) (unknown) (unknown) (no date) (unknown) (unknown) Review/Discuss. (uni ts unknown) (unknown) (unknown) (no date) (unknown) (unknown) Says he does n ot have much of an appetite indeed his weight is down several (units unknown) (unknown) (unknown) (no date) (unknown) (unknown) Signed By: <Electronically signed by Zachary Mullins MD> (units unknown) (unknown) (unknown) (no date) (unknown) (unknown) Signed (units unknown) (unknown) (unknown) (no date) (unknown) (unknown) Smoking Status : Former smoker (units unknown) (unknown) (unknown) (no date) (unknown) (unknown) Social History (unit s unknown) (unknown) (unknown) (no date) (unknown) (unknown) Status: Chronic (uni ts unknown) (unknown) (unknown) (no date) (unknown) (unknown) Surgical Histo ry (Updated 05/28/22 @ 15:50 by Zachary Mullins MD) (units unknown) (unknown) (unknown) (no date) (unknown) (unknown) This note may have been all or partially generated using voice recognition (units unknown) (unknown) (unknown) (no date) (unknown) (unknown) Times where he forgets to eat - doesn't remember (units unknown) (unknown) (unknown) (no date) (unknown) (unknown) Tobacco + Substance Use (units unknown) (unknown) (unknown) (no date) (unknown) (unknown) Tobacco Status (unit s unknown) (unknown) (unknown) (no date) (unknown) (unknown) Visit Reasons: Recheck labs/med check 05 (units unknown) (unknown) (unknown) (no date) (unknown) (unknown) Vitals (units unknown) (unknown) (unknown) (no date) (unknown) (unknown) Weight 159 lb 8 oz ( units unknown) (unknown) (unknown) (no date) (unknown) (unknown) alcohol intake : former (units unknown) (unknown) (unknown) (no date) (unknown) (unknown) any weight ivan k but certainly would want him to lose any from here would like to (units unknown) (unknown) (unknown) (no date) (unknown) (unknown) been at with a creatinine between 1.4 and 1.9 previously he is at 1.7 most (units unknown) (unknown) (unknown) (no date) (unknown) (unknown) have occurred. If there are any questions, please contact the Medical Records (units unknown) (unknown) (unknown) (no date) (unknown) (unknown) household memb ers: spouse (units unknown) (unknown) (unknown) (no date) (unknown) (unknown) keep his BMI o talia 20 for sure (units unknown) (unknown) (unknown) (no date) (unknown) (unknown) kilos. BMI sti ll okay at 21.6 (units unknown) (unknown) (unknown) (no date) (unknown) (unknown) labs the follo wing visit probably presumably 3 months later (units unknown) (unknown) (unknown) (no date) (unknown) (unknown) losartan 100 mg-hydrochlorothia zide 12.5 mg tablet 1 tab PO DAILY #90 tabs (units unknown) (unknown) (unknown) (no date) (unknown) (unknown) may occur. Occasional wrong-word or 'sound-alike' substitutions may have (units unknown) (unknown) (unknown) (no date) (unknown) (unknown) mellitus compliance officer insulin use: without nursing home use Qualified Code(s): E11.9 (units unknown) (unknown) (unknown) (no date) (unknown) (unknown) occurred due t o the inherent limitations of voice recognition software. Please (units unknown) (unknown) (unknown) (no date) (unknown) (unknown) overall things seem to be okay there (units unknown) (unknown) (unknown) (no date) (unknown) (unknown) read the note carefully and recognize, using context, where these substitutions (units unknown) (unknown) (unknown) (no date) (unknown) (unknown) recently (units unknown) (unknown) (unknown) (no date) (unknown) (unknown) shakes and I t hink that is fine on some sort of semi regular basis. Keeping his (units unknown) (unknown) (unknown) (no date) (unknown) (unknown) shows slight b ump in his creatinine but as well within the usual range he has (units unknown) (unknown) (unknown) (no date) (unknown) (unknown) software. Alth ough every effort is made to edit content, twister hand errors (units unknown) (unknown) (unknown) (no date) (unknown) (unknown) weight right w here it is would be perfect I do not know that he needs to gain (units unknown) (unknown) (unknown) (no date) (unknown) (unknown) with him that given that his blood sugar is so very well controlled as it is (units unknown) (unknown) (unknown) (no date) (unknown) (unknown) with his A1c a t 6.2 can liberalize his diet somewhat. He asked about milk (units unknown) (unknown) Social History date description facility 2023-04-12 00:00 Ex-smoker (finding) [facility] Vital Signs date measurement value units 2023-04-12 00:00 BMI 21.6 kg/m2 2023-04-12 00:00 BP_diastolic 64 mmHg 2023-04-12 00:00 BP_systolic 120 mmHg 2023-04-12 00:00 heart_rate 65 /min 2023-04-12 00:00 height_metric 182.88 cm 2023-04-12 00:00 height_standard 72 in 2023-04-12 00:00 o2_saturation 99 % 2023-04-12 00:00 weight_metric 72.34 kg 2023-04-12 00:00 weight_standard 159.48 lb
[2023-04-23 09:14] LABS: B. PARAPERTUSSIS- RESP PCR PAN NOT DETECTED; B. PERTUSSIS- RESP PCR PANEL NOT DETECTED; C. PNEUMONIAE- RESP PCR PANEL NOT DETECTED; CORONAVIRUS 229E-RESP PCR NOT DETECTED; CORONAVIRUS HKU1-RESP PCR NOT DETECTED; CORONAVIRUS NL63-RESP PCR NOT DETECTED; CORONAVIRUS OC43-RESP PCR NOT DETECTED; HUMAN METAPNEUMOVIRUS NOT DETECTED; INFLUENZA A- RESP PCR PANEL NOT DETECTED; INFLUENZA B - RESP PCR PANEL NOT DETECTED; M. PNEUMONIAE- RESP PCR PANEL NOT DETECTED; PARAINFLUENZA VIRUS 1 NOT DETECTED; PARAINFLUENZA VIRUS 2 NOT DETECTED; PARAINFLUENZA VIRUS 3 NOT DETECTED; PARAINFLUENZA VIRUS 4 NOT DETECTED; RHINOVIRUS/ENTEROVIRUS NOT DETECTED; RSV- RESP PCR PANEL NOT DETECTED; SARS-CoV-2 -RESP PCR PANEL NOT DETECTED
--- NOTE | 2023-04-23 12:42 | MRI Report ---
PROCEDURE: BRAIN WO INDICATIONS: left arm/leg weak since yesterday TECHNIQUE: Noncontrast axial T1 spin echo, axial T2 fast spin echo, sagittal and axial FLAIR, coronal T2 fast sp in echo, axial gradient echo, axial diffusion and ADC through the brain. COMPARISON: CT head from the same day. FINDINGS: Image quality: Excellent. CSF Spaces: Basal cisterns are patent. No extra-axial fluid collections. Ventricles are normal in size and shape. Brain: No intracranial masses or hemorrhage. Shafer/white matter interface is normal. Brainstem appe ars normal. Diffusion-weighted images demonstrate multiple small foci of restricted diffusion involv ing cortex and subcortical white matter of right frontal parietal lobe. Age-related volume loss is se en. Mild periventricular and deep white matter chronic small vessel ischemic changes are seen. Normal intravascular flow voids are present. Skull and face: Calvarium has normal marrow signal. Orbits appear normal. Sinuses: Sinuses and mastoids are clear. IMPRESSION: 1. Multiple small acute infarctions in right MCA distribution as above. 2. No evidence of acute intracranial bleed, midline shift or mass effect. 3. Age-related volume loss and mild periventricular and deep white matter chronic small vessel ischem ic changes. Reviewed by: Yonathan Sanchez MD on 04/23/2023 12:40 PM PDT Approved by: Yonathan Sanchez MD on 04/23/2023 12:40 PM PDT Station ID: [id number]
[2023-04-23] MEDS ORDERED: ENOXAPARIN 80 MG/0.8 ML SYRINGE SUBQ STA (12:57)
[2023-04-23] MEDS ORDERED: ASPIRIN CHEW 81 MG TABLET PO STA (12:57)
[2023-04-23] MEDS ORDERED: CLOPIDOGREL 75 MG TABLET PO STA (13:03)
[2023-04-23] MEDS ORDERED: SODIUM CHLORIDE FLUSH 0.9% 10 ML SYRINGE IVP PRN (13:08)
[2023-04-23] MEDS ORDERED: ONDANSETRON 4 MG/2 ML VIAL IVP PRN (13:08)
[2023-04-23] MEDS ORDERED: ACETAMINOPHEN 325 MG TABLET PO PRN (13:08)
--- NOTE | 2023-04-23 13:16 | HISTORY & PHYSICAL EXAMINATION ---
Chief Complaint - Chief Complaint Chief Complaint: L sided weakness History of Present Illness - Admitted From Admitted From:: ED - History Obtained From History obtained from: ED provider, chart review and the patient - History of Present Illness HPI Comment/Other: This is an 87-year-old male who lives alone since his 7 mos ago and daughter checks on him daily. He has a history of diabetes but is on no meds and does not follow a diabetic diet because "of laziness", has a Hx of myelodysplastic syndrome and used to followed by Dr. Apple at [facility] here, but not for the past year, history of CKD, and psoriasis remotely on methotrexate. He was just about to meet his new provider Dr. Mullins in [place] 2 days ago but their office to cancel that appointment. The patient started to develop left leg and left arm weakness yesterday, but he is vague about when it started. This morning while he was preparing breakfast he got more weak and fell in his kitchen, does not think he blacked out, was too weak to stand and was able to crawl over to the phone and call 911. There is no ambulance run sheet in this EMR to evaluate what his vital signs were at the scene. He presented to the emergency room and had the left arm and leg weakness persisting. He underwent a CT of the head that showed no acute findings. He underwent brain MRI that showed acute multiple small strokes in theright frontoparietal region. He received aspirin and Plavix in the ED. The ED provider called me and we spoke about this patient. He is being admitted for evaluation and management of a stroke. I discussed his CODE BLUE wishes. He wishes to be a DNR/DNI, and "let nature take its course". History - Past Medical History Cardiovascular: reports: Hypertension, High cholesterol Respiratory: reports: Sleep apnea Neuro: reports: None Endocrine/Autoimmune: reports: Type 2 diabetes GI: reports: None : reports: Benign prostate hypertrophy HEENT: reports: None, Chronic vision loss Psych: reports: None Musculoskeletal: reports: None Derm: reports: Psoriasis MRSA Hx?: No - Family & Social History Family History Comment/Other: No significant history that he know of. Living arrangement: At home Living Situation: Alone Social History Notes: Patient quit smoking 40 years ago. The patient drinks no alcohol. He denies any illicit drug use. He lives alone. His 7 months ago. His daughter checks on him daily and makes him dinner every evening. He no longer drives a car for the past several years due to very poor vision. - Substance History Use: Uses substance without health or social issues: NONE - POLST Patient has POLST: Yes Meds/Allgy - Home Medications Home Medications: Ambulatory Orders Medication Instructions Recorded Confirmed Melatonin 3 mg PO QPM PRN 03/05/19 04/23/23 Losartan/Hydrochlorothiazide 1 tab PO DAILY 04/23/23 04/23/23 [Losartan-Hctz 100-12.5 mg Tab] - Allergies Allergies/Adverse Reactions: Allergies Allergy/AdvReac Type Severity Reaction Status Date / Time No Known Drug Allergies Allergy Verified 04/23/23 07:47 Review of Systems - Eyes Eyes: reports: Blurred vision, Corrective lenses - Neurological Neurological: reports: Focal weakness, Memory problems - Hematologic/Lymphatic Hematologic/Lymphatic: reports: Anemia - All Other Systems All Other Systems: reports: Reviewed and negative Exam - Vital Signs Vital Signs: Vital Signs x48h Temp Pulse Resp BP Pulse Ox 04/23/23 11:11 83 19 185/88 H 100 04/23/23 08:46 108 H 16 141/66 H 100 04/23/23 07:47 36.9 C 82 22 139/101 H 99 - Physical Exam General Appearance: positive: No acute distress, Alert Eyes Bilateral: positive: Normal inspection, EOMI ENT: positive: ENT inspection nml, No signs of dehydration, Other (Has a full s et of upper denture) Neck: positive: Nml inspection, Other (No bruit. Positive JVD at 45 degree upright angle.) Respiratory: positive: No respiratory distress, Breath sounds nml (Distant breath sounds consistent with COPD) Cardiovascular: positive: Regular rate & rhythm, No murmur (Vertically displaced PMI) Abdomen: positive: Non-tender, Nml bowel sounds, No distention Skin: positive: Warm, Dry Extremities: positive: Non-tender, No pedal edema Neurologic/Psychiatric: positive: Oriented x3, Other (Left arm 3/5 left leg and foot 4/) Conclusion/Plan - Problem List (1) Acute right MCA stroke Conclusion/Plan: The patient presented out of the window of having intervention such as tPA. Neuro stroke team was therefore not contacted by the ED, to give any other recommendations. His left arm mostly and left leg remain weak. His blood pressu res are running 180s over 80s. I ordered CTA of head and neck with contrast which showed L ICA 50% stenosis Plan: Admit the patient to Inpatient status, on telemetry. Neurochecks every 4 hours Allow permissive hypertension for the next 24 to 48 hours, then I will resume his Lisinopril and any other BP meds I will order PT and OT for evaluation and treatment I will order complete Echo with bubble study. With this stroke distribution, it suggests he had a "shower" of emboli. Obtain a fasting lipid panel and treat per guidelines (2) DM type 2 (diabetes mellitus, type 2) Conclusion/Plan: Patient admitted that he does not follow a diabetic diet or take any metformin which he used to take remotely or check his fingerstick glu at all. Plan: Begin a diabetic diet, fingerstick checks, SS insulin coverage, hypoglycemia protocol We will request diabetic teaching to stress the importance of DM control If his daughter is the main meal maker then we will be in contact with her regarding a proper DM diet for her father Check A1c with morning labs (3) Weight loss Conclusion/Plan: I reviewed his entire EMR. This has been mentioned for several years. Plan: I will add high-calorie/protein supplements with meals Nutrition consult will be ordered (4) Psoriasis Conclusion/Plan: He used to be on methotrexate but has not taken it for about a year, he told our pharmacist. He told me it was his choice to stop this med (5) MDS (myelodysplastic syndrome) Conclusion/Plan: As per history. He admitted that he has not seen his oncologist in about a year. His hemoglobin is 10.1 and this is where he usually runs Plan: Follow hemoglobin daily, would transfuse if <7 (6) CKD (chronic kidney disease) Conclusion/Plan: His admission creatinine is 1.6 (all labs were reviewed). I looked at his EMR, and he always runs creatinine of 1.6 Plan: Avoid nephrotoxins (7) Noncompliance with medication regimen Conclusion/Plan: This patient flat out told me he only takes his losartan, no other medications, no diabetic management He shared with me that his 7 months ago. His daughter checks on him and is apparently the meal maker Plan: I will ask for social work evaluation for poss reactive depression - Lab Results Fish Bones: 04/23/23 08:06 04/23/23 08:06 - Diagnostic Imaging Results Diagnostic Imaging Results: positive: Final report reviewed - Other Other Results/Comments: Attestation: The patient is expected to be hospitalized for >2 midnights and is expectedf to be discharged or transferred to another facility within 96 hours: Yes.
--- NOTE | 2023-04-23 15:03 | CT Report ---
PROCEDURE: ANGIO NECK W INDICATIONS: Acute CVA CONTRAST: 80ml omni 350 TECHNIQUE: After the administration of intravenous contrast, 1.5 mm axial sections acquired from the aortic arch to the [place] of [place]. Coronal 3-D maximum intensity projection (MIP) and/or volume rendering ref ormats were then performed. For radiation dose reduction, the following was used: automated exposur e control, adjustment of mA and/or kV according to patient size. COMPARISON: CT and MRI of brain from the same day. MR angiogram of head and neck dated 12/31/2016 FINDINGS: Image quality: Excellent. Carotid system: The great vessels demonstrate a conventional anatomy as they arise from the aortic a rch. The origins of the common carotid arteries appear patent. The common carotid arteries demonstr ate normal calibers and courses. Atherosclerotic disease involving left carotid bulb and origin of le ft internal carotid artery with less than 50% stenosis. No hemodynamically significant stenosis is se en in right internal carotid artery. The internal carotid arteries demonstrate normal caliber and cou rse. Posterior circulation: The origins of the vertebral arteries appear patent. The more superior porti ons of the vertebral arteries demonstrate normal course and caliber. They join to form a normal appe aring basilar artery. Soft tissues: Visualized neck soft tissues demonstrate no suspicious abnormalities. The thyroid is normal in size and there are no incidental findings. Bones: No suspicious bony lesions. Visualized cervical spine appears normally aligned. IMPRESSION: 1. Less than 50% stenosis involving origin of left internal carotid artery. No hemodynamically signif icant stenosis or aneurysm is seen in right carotid arteries. No hemodynamically significant stenosis or aneurysm is seen in bilateral vertebral arteries. The estimate of stenosis included in the report of the imaging study was calculated using the NASCET method CLINICAL RECOMMENDATION STATEMENTS: In patients <35 years with an ITN detected on CT, MRI, or extrathyroidal ultrasound, the Committee re commends further evaluation with dedicated thyroid ultrasound if the nodule is "e1 cm and has no susp icious imaging features, and if the patient has normal life expectancy. In patients "e35 years with an ITN detected on CT, MRI, or extrathyroidal ultrasound, the Committee r ecommends further evaluation with dedicated thyroid ultrasound if the nodule is "e1.5 cm and has no s uspicious imaging features, and if the patient has normal life expectancy. (ACR, 2014) Reviewed by: Yonathan Sanchez MD on 04/23/2023 3:02 PM PDT Approved by: Yonathan Sanchez MD on 04/23/2023 3:02 PM PDT Station ID: [id number]
--- NOTE | 2023-04-23 15:05 | CT Report ---
PROCEDURE: ANGIO HEAD W/WO INDICATIONS: Acute CVA CONTRAST: 80ml omni 350 TECHNIQUE: Precontrast 4.5 mm thick angled axial sections acquired from the foramen magnum to the vertex. Afte r the administration of intravenous contrast, 1 mm thick sections acquired through the [place] of [place] is. Postcontrast 4.5 mm thick sections then re-acquired from the foramen magnum to the vertex. 3-di mensional [id number]-[id number]-pgelvaxmzx (MIP) and/or volume rendering reformats were acquired of the c entral intracranial vasculature. For radiation dose reduction, the following was used: automated ex posure control, adjustment of mA and/or kV according to patient size. COMPARISON: ET and MRI of brain from the same day. FINDINGS: Image quality: Excellent. Anterior circulation: Mild atherosclerotic calcifications seen in distal intracranial portion of inte rnal carotid arteries with less than 50% stenosis The flow within the paired anterior cerebral arteri es is normal and symmetric. The flow within the middle cerebral arteries is normal and symmetric. T he anterior communicating artery is seen. No aneurysms are seen. Posterior circulation: Visualized portions of the vertebral arteries demonstrate normal caliber, and join to form a normal appearing basilar artery. Flow within the posterior cerebral arteries is norm al and symmetric. No aneurysms are seen. CSF spaces: Ventricles are normal in size and shape. Basal cisterns are patent. No extra-axial flu id collections. Brain: No midline shift. No intracranial bleeds or masses. Shafer-white matter interface appears int act. No area of abnormal intracranial enhancement is seen. Skull and face: Calvarium and facial bones appear intact, without suspicious lesions. Sinuses: Visualized sinuses and mastoids are clear. IMPRESSION: 1. No hemodynamically significant stenosis or aneurysm is seen in the intracranial circulation. 2. Mild atherosclerotic disease in bilateral distal intracranial portion of internal carotid arteries with less than 50% stenosis. Reviewed by: Yonathan Sanchez MD on 04/23/2023 3:04 PM PDT Approved by: Yonathan Sanchez MD on 04/23/2023 3:04 PM PDT Station ID: [id number]
--- NOTE | 2023-04-23 15:09 | PHARMACY PROGRESS NOTE ---
- Best Possible Medication History Admit Date and Time: 04/23/23 9793 Processed by: Pharmacy Medication History completed: Yes Patient Interview: Completed Secondary Source(s): Pharmacy records, Insurance records Patient reports stopping most of his medications over a year ago and now only takes losartan-HCTZ and occasionally melatonin. As the person ultimately responsible for medication therapy, providers are able to order a medication from an existing home medication list in [facility] via the "Reconcile Routine" prior to Confirmation of that medication by it desktop support specialist. Such practice is discouraged except when the physician, in their clinical judgment, deems that a medical need exists for a medication without regard to previous use.
[2023-04-23] MEDS: INSULIN LISPRO 300 UNIT/3 ML PEN SUBQ SCH ×2 (18:05→21:17)
[2023-04-23] MEDS: SODIUM CHLORIDE FLUSH 0.9% 10 ML SYRINGE IVP SCH (18:05)
[2023-04-24] MEDS: SODIUM CHLORIDE FLUSH 0.9% 10 ML SYRINGE IVP SCH ×3 (01:00→17:13)
[2023-04-24 05:18] LABS: BUN - BLOOD UREA NITROGEN 33 mg/dL (6-20); CALCIUM 8.6 mg/dL (8.5-10.3); CARBON DIOXIDE - CO2 26 mmol/L (21-32); CHLORIDE 109 mmol/L (101-111); CHOL/HDL RATIO 2.6 (<5.0); CHOLESTEROL 108 mg/dL; CREATININE 1.5 mg/dL (0.6-1.2); GFR - MDRD 44 (>89); GLUCOSE 106 mg/dL (70-100); HDL CHOLESTEROL 41 mg/dL; LDL CHOLESTEROL,CALCULATED 57 mg/dL; LDL/HDL RATIO 1.4 (<3.6); PHOSPHORUS 2.6 mg/dL (2.5-4.6); POTASSIUM 4.2 mmol/L (3.5-5.0); SODIUM 143 mmol/L (135-145); TRIGLYCERIDES 50 mg/dL; VLDL CHOLESTEROL 10 mg/dL
[2023-04-24] MEDS: polyethylene glycoL 3350 17 GM PACKET PO SCH (08:55)
[2023-04-24] MEDS: INSULIN LISPRO 300 UNIT/3 ML PEN SUBQ SCH ×4 (08:55→21:03)
[2023-04-24] MEDS: ASPIRIN EC 81 MG TABLET PO SCH (08:56)
[2023-04-24] MEDS: DOCUSATE SODIUM 250 MG CAPSULE PO SCH (08:56)
--- NOTE | 2023-04-24 10:43 | PROVIDER PROGRESS NOTE ---
Assessment/Plan - Problem List (1) Acute right MCA stroke Assessment/Plan: The patient presented outside of the window of having intervention such as tPA, despite RCA distribution strokes seen on brain imaging. Neuro stroke team was therefore not contacted by the ED, to give any other recommendations. His left arm mostly and left leg remain weak. I ordered CTA of head and neck with contrast which showed L ICA 50% stenosis His fasting lipid panel shows LDL of 59 (all labs were reviewed). This supports the Hx of weight loss and I will not order a statin. Plan: Remain on telemetry Neurochecks every 4 hours Allow permissive hypertension for the next 24 to 48 hours, then I will resume his BP meds I ordered PT and OT for evaluation and treatment (but today is Tuesday and we have no PT or OT here on Sundays). He agrees and the granddaughter Lilly in the room today, agrees he may need to go to SNF for rehab before returning home. I ordered a complete Echo with bubble study. With this stroke distribution, it suggests he had a "shower" of emboli, so he may have an intra-cardiac clot. (2) Poor memory Impression: Today his grand-daughter Lilly was in the room and gave me a more detailed Hx: When this patient's 7 months ago, Lilly moved 3 houses away from him, moving here from [place]. There is also a great granddaughter who Lilly shares custody with her ex, so the great granddaughter is also here [facility]. Lilly stays with the pt from 8 AM to 10 PM every day, also Lilly's mother, the patient's daughter Giovanna, comes over after work and makes dinner every night and they all 3 have dinner together, 7 days a week. This patient's memory is extremely poor, Lilly said. He does not member that he did go to see Dr. Mullins, his new PCP, last week Tuesday. It was the dentist's office that canceled his appointment for last , not Dr. Mullins. Plan: I advised that the patient now have 24/ caregiving/help in his house where he w ants to stay as long as possible, given his poor memory and the recent fall. Lilly said that she could leave the house which she is in, 3 houses down from him, and move in with him. I will request a social work consult. (3) Fall at home Impression: The patient had reported that he just fell because of the left arm and leg weakness and does not think he had syncope, he then crawled to a phone and called 911. Today his granddaughter Lilly and great granddaughter were in the room and the great granddaughter reported "my great grandpa was on the floor for 2 hours". In fact, Lilly said that when she came to be with him yesterday morning at 8 AM, she "found his shoes and his cane there, but no grandpa" and she had to call around to various hospitals to find him. Plan: I will check total CK to rule out rhabdomyolysis I will order orthostatic vital signs be checked (4) DM type 2 (diabetes mellitus, type 2) Conclusion/Plan: Patient admitted that he does not follow a diabetic diet or take any metformin which he used to take remotely or check his fingerstick glu at all. Lilly told me today that the patient told her that he had "diet-controlled diabetes" Plan: Cont diabetic diet, fingerstick checks, SS insulin coverage, hypoglycemia protocol I ordered diabetic teaching, but today I suspect he will not remember any teaching. Assistant District Attorney will have to work with the daughter Giovanna and the granddaughter Lilly His A1c was ordered and is still pending (5) MDS (myelodysplastic syndrome) Conclusion/Plan: As per history. He admitted that he has not seen his oncologist in about a year. His hemoglobin is 10.1 and this is where he usually runs, from my review of his EMRR Plan: Follow hemoglobin daily, would transfuse if <7 (6) CKD (chronic kidney disease) Conclusion/Plan: His admission creatinine is 1.6 (all labs were reviewed). I looked at his EMR, and he always runs creatinine of 1.6. Today creat is stable at 1.5. Plan: Avoid nephrotoxins (7) Noncompliance with medication regimen Conclusion/Plan: This patient flat out told me at admission that he only takes his Losartan, no other medications, no diabetic management He shared with me that his 7 months ago. He reported that his daughter checks on him and is the meal maker. He told me nothing about the granddaughter Lilly staying with him every day from 8 am to 10 pm. Plan: I will ask for social work evaluation for poss reactive depression Also social work to help with living situation/caregiving (8)Weight loss Conclusion/Plan: I reviewed his entire EMR and weight loss has been mentioned for several years. I ordered a high-calorie/protein supplements with meals Plan: Nutrition consult will be ordered (9) Psoriasis Conclusion/Plan: He used to be on methotrexate but has not taken it for about a year, he told our pharmacist. He told me it was his choice to stop this medication. Also he did say he has not seen a PCP in 1 year. - Current Meds Current Meds: Current Medications Generic Name Dose Route Start Last Admin Trade Name Freq PRN Reason Stop Dose Admin Aspirin 81 mg 04/24/23 09:00 04/24/23 08:56 Aspirin Ec 81 Mg Tablet PO 81 mg DAILY JEFFERSON Administration Docusate Sodium 250 - 500 mg 04/24/23 09:00 04/24/23 08:56 Docusate Sodium 250 Mg Capsule PO 250 mg DAILY JEFFERSON Administration Insulin Human Lispro 1 - 5 unit 04/23/23 17:00 04/24/23 08:55 Insulin Lispro 300 Unit/3 Ml Pen SUBQ Not Given 0800,1200,1700,2100 JEFFERSON Protocol Polyethylene Glycol 17 gm 04/24/23 09:00 04/24/23 08:55 Polyethylene Glycol 3350 17 Gm Packet PO 17 gm DAILY JEFFERSON Administration Sodium Chloride 10 ml 04/23/23 17:00 04/24/23 08:56 Sodium Chloride Flush 0.9% 10 Ml Syringe IVP 10 ml 0100,0900,1700 JEFFERSON Administration - Lab Result Fish Bone Diagrams: 04/24/23 04:43 04/24/23 04:43 - Additional Planning My Orders: My Active Orders 04/23/23 13:08 Activity Orders [RC] Q2HR IO [RC] IOSHIFT Incentive Spirometry - RT [RC] TID Initiate Bowel Care Protocol [RC] .protocol Initiate Line Care Protocol [RC] QSHIFT Initiate Personal Care Protoco [RC] .protocol Oxygen Therapy [RC] .PRN Telemetry- [RC] Q4HR Vital Signs [RC] Q4HR Acetaminophen [Tylenol] 650 mg PO Q4HR PRN Ondansetron Inj [Zofran Inj] 4 mg IVP Q6HR PRN Sodium Chloride Flush 0.9% [Normal Saline Flush 0.9%] 10 ml IVP PRN PRN Code Status [OTHERS] Routine Condition of Patient [OTHERS] Routine DVT Prophylaxis [OTHERS] Routine 04/23/23 13:10 Daily Weight [RC] 0600 Nutrition Consult [CONS] Routine 04/23/23 13:11 Blood Glucose Checks - Eating [RC] 0800,1200,1700,2100 Initiate Hypoglycemia Protocol [RC] .protocol SCDs [RC] QSHIFT 04/23/23 Dinner Carb-controlled Diet [DIET] 04/23/23 16:55 Neuro Check [RC] Q4H 04/23/23 17:00 Insulin Lispro [Humalog Kwikpen U-100] 1 - 5 unit SUBQ 0800,1200,1700,2100 Sodium Chloride Flush 0.9% [Normal Saline Flush 0.9%] 10 ml IVP 0100,0900,1700 04/24/23 04:43 HEMOGLOBIN A1c% [CHEM] DAILYLAB 04/24/23 09:00 Aspirin EC [Ecotrin] 81 mg PO DAILY Docusate Sodium 250Mg Capsule [Colace 250Mg Capsule] 250 - 500 mg PO DAILY polyethylene glycoL 3350 [Miralax] 17 gm PO DAILY 04/24/23 10:10 Miscellaenous Nursing Order [RC] QSHIFT Orthostatic [Vital Signs - Orthostatic] [RC] DAILY 04/25/23 05:00 BMP - BASIC METABOLIC PANEL [CHEM] DAILYLAB HGB - HEMOGLOBIN [HEME] DAILYLAB 04/26/23 05:00 BMP - BASIC METABOLIC PANEL [CHEM] DAILYLAB HGB - HEMOGLOBIN [HEME] DAILYLAB 04/26/23 07:00 Echo Complete w/Bubble Study [ECHO] Routine Subjective - Subjective Patient Reports: Resting Comfortably, No Complaints, Other (He thinks his left leg is stronger and that his left arm is slightly stronger) Objective Vital Signs: Vital Signs - 24 hr 04/23/23 04/23/23 04/23/23 11:11 14:34 15:55 Temperature 36.3 C L 36.2 C L Heart Rate 83 Heart Rate [ 71 59 L Brachial] Respiratory 19 16 16 Rate Blood Pressure 185/88 H Blood Pressure 148/70 H 151/54 H [Right Brachial artery] O2 Saturation 100 100 100 04/23/23 04/24/23 04/24/23 21:00 00:28 04:46 Temperature 36.6 C 36.7 C 37.0 C Heart Rate Heart Rate [ 68 63 70 Brachial] Respiratory 16 16 18 Rate Blood Pressure Blood Pressure 155/61 H 149/62 H 138/63 H [Right Brachial artery] O2 Saturation 100 99 100 04/24/23 07:29 Temperature 36.8 C Heart Rate Heart Rate [ 67 Brachial] Respiratory 16 Rate Blood Pressure Blood Pressure 140/62 H [Right Brachial artery] O2 Saturation 99 Oxygen O2 Source Room air I&O (Last 24 Hrs): Intake and Output Totals x24h 04/22/23 04/23/23 04/24/23 23:59 23:59 23:59 Intake Total 2660 700 Output Total 275 Balance 2660 425 General: Alert, Oriented x3 HEENT: Mucous membr. moist/pink Neck: Supple, No JVD Neuro: Alert, Other (Left arm 4/5 left leg 5/5. Poor memory.) Cardiovascular: Regular rate, No murmurs Respiratory: No respiratory distress, Breath sounds nml Abdomen: Normal bowel sounds, Soft, No tenderness Extremities: No clubbing, No edema - Results Results: Laboratory Results WBC 14.0 x10^3/uL (4.8-10.8) H 04/23/23 08:06 RBC 3.50 10^6/uL (4.70-6.10) L 04/23/23 08:06 Hgb 9.2 g/dL (14.0-18.0) L 04/24/23 04:43 Hct 32.4 % (42.0-52.0) L 04/23/23 08:06 MCV 92.6 fL (80.0-94.0) 04/23/23 08:06 MCH 28.9 pg (27.0-31.0) 04/23/23 08:06 MCHC 31.2 g/dL (32.0-36.0) L 04/23/23 08:06 RDW 14.2 % (12.0-15.0) 04/23/23 08:06 Plt Count 307 10^3/uL (130-450) 04/23/23 08:06 MPV 9.4 fL (7.4-11.4) 04/23/23 08:06 Neut # (Auto) 11.1 10^3/uL (1.5-6.6) H 04/23/23 08:06 Lymph # (Auto) 1.2 10^3/uL (1.5-3.5) L 04/23/23 08:06 [place] # (Auto) 1.4 10^3/uL (0.0-1.0) H 04/23/23 08:06 Eos # (Auto) 0.2 10^3/uL (0.0-0.7) 04/23/23 08:06 Baso # (Auto) 0.1 10^3/uL (0.0-0.1) 04/23/23 08:06 Absolute Nucleated RBC 0.00 x10^3/uL 04/23/23 08:06 Nucleated RBC % 0.0 /100WBC 04/23/23 08:06 Sodium 143 mmol/L (135-145) 04/24/23 04:43 Potassium 4.2 mmol/L (3.5-5.0) 04/24/23 04:43 Chloride 109 mmol/L (101-111) 04/24/23 04:43 Carbon Dioxide 26 mmol/L (21-32) 04/24/23 04:43 Anion Gap 8.0 (6-13) 04/24/23 04:43 BUN 33 mg/dL (6-20) H 04/24/23 04:43 Creatinine 1.5 mg/dL (0.6-1.2) H 04/24/23 04:43 Estimated GFR (MDRD) 44 (>89) L 04/24/23 04:43 Glucose 106 mg/dL (70-100) H 04/24/23 04:43 POC Whole Bld Glucose 96 mg/dL (70 - 100) 04/24/23 07:26 Lactic Acid 1.1 mmol/L (0.5-2.2) 04/23/23 08:06 Calcium 8.6 mg/dL (8.5-10.3) 04/24/23 04:43 Phosphorus 2.6 mg/dL (2.5-4.6) 04/24/23 04:43 Magnesium 2.0 mg/dL (1.7-2.8) 04/24/23 04:43 Total Bilirubin 0.5 mg/dL (0.2-1.0) 04/23/23 08:06 AST 30 IU/L (10-42) 04/23/23 08:06 ALT 17 IU/L (10-60) 04/23/23 08:06 Alkaline Phosphatase 75 IU/L (42-121) 04/23/23 08:06 Total Protein 7.6 g/dL (6.7-8.2) 04/23/23 08:06 Albumin 3.8 g/dL (3.2-5.5) 04/23/23 08:06 Globulin 3.8 g/dL (2.1-4.2) 04/23/23 08:06 Albumin/Globulin Ratio 1.0 (1.0-2.2) 04/23/23 08:06 Triglycerides 50 mg/dL (-149) 04/24/23 04:43 Cholesterol 108 mg/dL (-199) 04/24/23 04:43 LDL Cholesterol, Calc 57 mg/dL (-129) 04/24/23 04:43 VLDL Cholesterol 10 mg/dL 04/24/23 04:43 HDL Cholesterol 41 mg/dL (60-) L 04/24/23 04:43 LDL/HDL Ratio 1.4 (<3.6) 04/24/23 04:43 Cholesterol/HDL Ratio 2.6 (<5.0) 04/24/23 04:43 Lipase 45 U/L (22-51) 04/23/23 08:06 TSH 1.65 uIU/mL (0.34-5.60) 04/23/23 08:06 Urine Color YELLOW 04/23/23 08:15 Urine Clarity CLEAR (CLEAR) 04/23/23 08:15 Urine pH 6.0 PH (5.0-7.5) 04/23/23 08:15 Ur Specific [place] 1.010 (1.002-1.030) 04/23/23 08:15 Urine Protein TRACE mg/dL (NEGATIVE) 04/23/23 08:15 Urine Glucose (UA) NEGATIVE mg/dL (NEGATIVE) 04/23/23 08:15 Urine Ketones NEGATIVE mg/dL (NEGATIVE) 04/23/23 08:15 Urine Occult Blood TRACE-INTA (NEGATIVE) 04/23/23 08:15 Urine Nitrite NEGATIVE (NEGATIVE) 04/23/23 08:15 Urine Bilirubin NEGATIVE (NEGATIVE) 04/23/23 08:15 Urine Urobilinogen 0.2 (NORMAL) E.U./dL (NORMAL) 04/23/23 08:15 Ur Leukocyte Esterase NEGATIVE (NEGATIVE) 04/23/23 08:15 Ur Microscopic Review NOT INDICATED 04/23/23 08:15 Urine Culture Comments NOT INDICATED 04/23/23 08:15 Nasal Adenovirus (PCR) NOT DETECTED 04/23/23 08:10 Nasal B. parapertussis DNA (PCR) NOT DETECTED 04/23/23 08:10 Nasal Coronavir 229E PCR NOT DETECTED 04/23/23 08:10 Nasal Coronavir HKU1 PCR NOT DETECTED 04/23/23 08:10 Nasal Coronavir NL63 PCR NOT DETECTED 04/23/23 08:10 Nasal Coronavir OC43 PCR NOT DETECTED 04/23/23 08:10 Nasal Enterovir/Rhinovir PCR NOT DETECTED 04/23/23 08:10 Nasal Influenza B PCR NOT DETECTED 04/23/23 08:10 Nasal Influenza A PCR NOT DETECTED 04/23/23 08:10 Nasal Parainfluen 1 PCR NOT DETECTED 04/23/23 08:10 Nasal Parainfluen 2 PCR NOT DETECTED 04/23/23 08:10 Nasal Parainfluen 3 PCR NOT DETECTED 04/23/23 08:10 Nasal Parainfluen 4 PCR NOT DETECTED 04/23/23 08:10 Nasal RSV (PCR) NOT DETECTED 04/23/23 08:10 Nasal B.pertussis DNA PCR NOT DETECTED 04/23/23 08:10 Nasal C.pneumoniae (PCR) NOT DETECTED 04/23/23 08:10 Louie Human Metapneumo PCR NOT DETECTED 04/23/23 08:10 Nasal M.pneumoniae (PCR) NOT DETECTED 04/23/23 08:10 Nasal SARS-CoV-2 (PCR) NOT DETECTED 04/23/23 08:10
[2023-04-24 11:25] LABS: ESTIMATED AVERAGE GLUCOSE 123 mg/dL (70-100); HEMOGLOBIN A1c% 5.9 % (4.27-6.07)
[2023-04-24] MEDS: SODIUM CHLORIDE 0.9% 1,000 ML IV SCH (17:13)
[2023-04-25] MEDS: SODIUM CHLORIDE FLUSH 0.9% 10 ML SYRINGE IVP SCH ×3 (02:29→20:51)
[2023-04-25] MEDS: SODIUM CHLORIDE 0.9% 1,000 ML IV SCH (05:26)
[2023-04-25 06:00] LABS: CALCIUM 8.1 mg/dL (8.5-10.3); CREATININE 1.8 mg/dL (0.6-1.2)
[2023-04-25] MEDS: INSULIN LISPRO 300 UNIT/3 ML PEN SUBQ SCH (08:10)
[2023-04-25] MEDS: DOCUSATE SODIUM 250 MG CAPSULE PO SCH (08:16)
[2023-04-25] MEDS: ASPIRIN EC 81 MG TABLET PO SCH (08:17)
[2023-04-25] MEDS: CLOPIDOGREL 75 MG TABLET PO SCH (08:17)
[2023-04-25] MEDS: polyethylene glycoL 3350 17 GM PACKET PO SCH (08:23)
[2023-04-25] MEDS: MULTIVITAMIN W/MINERALS TABLET PO SCH (09:15)
--- NOTE | 2023-04-25 09:20 | PROVIDER PROGRESS NOTE ---
Assessment/Plan - Problem List (1) Acute right MCA stroke Assessment/Plan: The patient presented outside of the window of having intervention such as tPA, despite RCA distribution strokes seen on brain imaging. Neuro stroke team was therefore not contacted by the ED, to give any other recommendations. His left arm mostly and left leg remain weak. I ordered CTA of head and neck with contrast which showed L ICA 50% stenosis His fasting lipid panel shows LDL of 59 (all labs were reviewed). This supports the Hx of weight loss and I did not order a statin. Plan: Remain on telemetry Neurochecks every 4 hours Allow permissive hypertension for 48 hours. I was planning on today resuming his BP meds Losartan, but he is orthostatic so will not order Losartan I ordered PT and OT for evaluation and treatment (but he came in late Tue and we had no PT or OT here until today, Tuesday). He agrees and the granddaughter Lilly in the room today, agrees he may need to go to SNF for rehab before returning home. I ordered a complete Echo with bubble study. With this stroke distribution, it suggests he had a "shower" of emboli, so he may have an intra-cardiac clot. (2) Fall at home Impression: The patient had reported that he just fell because of the left arm and leg w eakness and does not think he had syncope, he then crawled to a phone and called 911. On 04/24 his granddaughter Lilly and great granddaughter were in the room and the great granddaughter reported "my great grandpa was on the floor for 2 hours". In fact, Lilly said that when she came to be with him yesterday morning at 8 AM, she "found his shoes and his cane there, but no grandpa" and she had to call around to various hospitals to find him. I checked total CK to rule out rhabdomyolysis I ordered orthostatic vital signs be checked Plan: Start working with PT and OT today (3) Orthostatic hypotension His first set of orthostatic vital signs were done yesterday and showed a supine BP 105/56, heart rate 59. Sitting BP 99/54. With standing his heart rate sondra to 75. 2 L of IV NS was ordered. Plan: I will not order restart of his home Losartan med Continue to follow orthostatic vital signs daily Start working with PT and OT today (4) Poor memory Impression: On 04/24 his grand-daughter Lilly was in the room and gave me a more detailed Hx: When this patient's 7 months ago, Lilly moved 3 houses away from him, moving here from [place]. There is also a great granddaughter who Lilly shares custody with her ex, so the great granddaughter is also here [facility]. Lilly stays with the pt from 8 AM to 10 PM every day, also Lilly's mother, the patient's daughter Giovanna, comes over after work and makes dinner every night and they all 3 have dinner together, 7 days a week. This patient's memory is extremely poor, Lilly said. He does not member that he did go to see Dr. Mullins, his new PCP, last week Tuesday. It was the dentist's office that canceled his appointment for last , not Dr. Mullins. Plan: In my meeting with Lilly on 04/24, I advised that the patient now have 24/7 caregiving help in his house, since he wants to stay there as long as possible, given his poor memory and the recent fall. Lilly said that she could leave the house which she is in, 3 houses down from him, and move in with him. I requested a social work consult. (5) DM type 2 (diabetes mellitus, type 2) Conclusion/Plan: Patient admitted that he does not follow a diabetic diet or take any metformin which he used to take remotely or check his fingerstick glu at all. Lilly told me today that the patient told her that he had "diet-controlled diabetes" His A1c came back at 5.9 consistent with no DM or well controlled DM if he was on a diet Plan: I will cancel the diabetic diet, fingerstick checks, SS insulin coverage, hypoglycemia protocol I will request a consult from Customer Trainer I ordered diabetic teaching, but I suspect he will not remember any teaching. [employer] Work[employer] will have to work with the daughter Giovanna and the granddaughter Lilly (6) MDS (myelodysplastic syndrome) Conclusion/Plan: As per history. He admitted that he has not seen his oncologist in about a year. His hemoglobin is 10.1 and this is where he usually runs, from my review of his EMRR Plan: Follow hemoglobin daily, would transfuse if <7 (7) CKD (chronic kidney disease) Conclusion/Plan: His admission creatinine is 1.6 (all labs were reviewed). I looked at his EMR, and he always runs creatinine of 1.6. Yesterday creat was 1.5, today 1.8. He was orthostatic yesterday and 2 L of NS were ordered yesterday afternoon. Plan: 2 L of IV NS were ordered yesterday afternoon, which should help the creat Avoid nephrotoxins (8) Noncompliance with medication regimen Conclusion/Plan: This patient flat out told me at admission that he only takes his Losartan, no other medications, no diabetic management He shared with me that his 7 months ago. He reported that his daughter checks on him and is the meal maker. He told me nothing about the granddaughter Lilly staying with him every day from 8 am to 10 pm. Plan: I will ask for social work evaluation for poss reactive depression Also Social Work to help with living situation/caregiving (9) Severe protein calorie malnutrition Conclusion/Plan: I reviewed his entire EMR and weight loss has been mentioned for several years. He has lost 15 pounds in under a year. There is significant loss of subcutaneous fat and muscle I ordered a high-calorie/protein supplements with meals Plan: Nutrition consult will be ordered (10) Psoriasis Conclusion/Plan: He used to be on methotrexate but has not taken it for about a year, he told our pharmacist. He told me it was his choice to stop this medication. Also he did say he has not seen a PCP in 1 year. - Current Meds Current Meds: Current Medications Generic Name Dose Route Start Last Admin Trade Name Jayjay PRN Reason Stop Dose Admin Aspirin 81 mg 04/24/23 09:00 04/25/23 08:17 Aspirin Ec 81 Mg Tablet PO 81 mg DAILY JEFFERSON Administration Clopidogrel Bisulfate 75 mg 04/25/23 09:00 04/25/23 08:17 Clopidogrel 75 Mg Tablet PO 75 mg DAILY JEFFERSON Administration Docusate Sodium 250 - 500 mg 04/24/23 09:00 04/25/23 08:16 Docusate Sodium 250 Mg Capsule PO 500 mg DAILY JEFFERSON Administration Sodium Chloride 1,000 mls @ 83.333 mls/hr 04/24/23 17:00 04/25/23 05:26 Normal Saline 0.9% IV 04/25/23 16:59 83.333 mls/hr .Q12H JEFFERSON Administration Insulin Human Lispro 1 - 5 unit 04/23/23 17:00 04/25/23 08:10 Insulin Lispro 300 Unit/3 Ml Pen SUBQ Not Given 0800,1200,1700,2100 [facility] Protocol Polyethylene Glycol 17 gm 04/24/23 09:00 04/25/23 08:23 Polyethylene Glycol 3350 17 Gm Packet PO 17 gm DAILY JEFFERSON Administration Sodium Chloride 10 ml 04/23/23 17:00 04/25/23 08:23 Sodium Chloride Flush 0.9% 10 Ml Syringe IVP 10 ml 0100,0900,1700 JEFFERSON Administration - Lab Result Fish Bone Diagrams: 04/25/23 04:58 04/25/23 04:58 - Additional Planning My Orders: My Active Orders 04/24/23 09:00 Aspirin EC [Ecotrin] 81 mg PO DAILY Docusate Sodium 250Mg Capsule [Colace 250Mg Capsule] 250 - 500 mg PO DAILY polyethylene glycoL 3350 [Miralax] 17 gm PO DAILY 04/24/23 10:10 Miscellaenous Nursing Order [RC] QSHIFT Orthostatic [Vital Signs - Orthostatic] [RC] DAILY 04/24/23 17:00 Sodium Chloride 0.9% [Normal Saline 0.9%] 1,000 ml IV 83.333 mls/hr 04/25/23 09:00 Clopidogrel [Plavix] 75 mg PO DAILY 04/25/23 10:00 Multivitamin W/Minerals [Theragran M] 1 tab PO DAILYWM 04/26/23 05:00 BMP - BASIC METABOLIC PANEL [CHEM] DAILYLAB HGB - HEMOGLOBIN [HEME] DAILYLAB 04/26/23 07:00 Echo Complete w/Bubble Study [ECHO] Routine Subjective - Subjective Patient Reports: Other (Unchanged weakness of his left arm and left leg) Objective Vital Signs: Vital Signs - 24 hr 04/24/23 04/24/23 04/24/23 12:45 15:53 16:01 Temperature 36.3 C L 36.4 C L Heart Rate [ 58 L 64 62 Brachial] Respiratory 16 16 Rate Blood Pressure 112/55 L 96/52 L 99/54 L [Right Brachial artery] O2 Saturation 99 99 98 04/24/23 04/24/23 04/25/23 21:00 23:23 05:24 Temperature 36.7 C 36.3 C L 36.4 C L Heart Rate [ 57 L 58 L 66 Brachial] Respiratory 17 16 16 Rate Blood Pressure 123/49 L 156/57 H 151/64 H [Right Brachial artery] O2 Saturation 99 100 99 04/25/23 07:35 Temperature 36.7 C Heart Rate [ 67 Brachial] Respiratory 18 Rate Blood Pressure 157/59 H [Right Brachial artery] O2 Saturation 99 Oxygen O2 Source Room air I&O (Last 24 Hrs): Intake and Output Totals x24h 04/23/23 04/24/23 04/25/23 23:59 23:59 23:59 Intake Total 2660 1180 1240 Output Total 775 Balance 2660 405 1240 General: Alert, Oriented x3 HEENT: Mucous membr. moist/pink, Other (upper dentures, poorly fitting (due to weight loss)) Neck: Supple Neuro: Alert, Other (Left arm 3/5 left leg 4/5. Por memory) Cardiovascular: Regular rate, No murmurs Respiratory: No respiratory distress Abdomen: Soft, No tenderness Extremities: No clubbing, No edema - Results Results: Laboratory Results WBC 14.0 x10^3/uL (4.8-10.8) H 04/23/23 08:06 RBC 3.50 10^6/uL (4.70-6.10) L 04/23/23 08:06 Hgb 8.8 g/dL (14.0-18.0) L 04/25/23 04:58 Hct 32.4 % (42.0-52.0) L 04/23/23 08:06 MCV 92.6 fL (80.0-94.0) 04/23/23 08:06 MCH 28.9 pg (27.0-31.0) 04/23/23 08:06 MCHC 31.2 g/dL (32.0-36.0) L 04/23/23 08:06 RDW 14.2 % (12.0-15.0) 04/23/23 08:06 Plt Count 307 10^3/uL (130-450) 04/23/23 08:06 MPV 9.4 fL (7.4-11.4) 04/23/23 08:06 Neut # (Auto) 11.1 10^3/uL (1.5-6.6) H 04/23/23 08:06 Lymph # (Auto) 1.2 10^3/uL (1.5-3.5) L 04/23/23 08:06 [place] # (Auto) 1.4 10^3/uL (0.0-1.0) H 04/23/23 08:06 Eos # (Auto) 0.2 10^3/uL (0.0-0.7) 04/23/23 08:06 Baso # (Auto) 0.1 10^3/uL (0.0-0.1) 04/23/23 08:06 Absolute Nucleated RBC 0.00 x10^3/uL 04/23/23 08:06 Nucleated RBC % 0.0 /100WBC 04/23/23 08:06 Sodium 141 mmol/L (135-145) 04/25/23 04:58 Potassium 4.0 mmol/L (3.5-5.0) 04/25/23 04:58 Chloride 112 mmol/L (101-111) H 04/25/23 04:58 Carbon Dioxide 24 mmol/L (21-32) 04/25/23 04:58 Anion Gap 5.0 (6-13) L 04/25/23 04:58 BUN 40 mg/dL (6-20) H 04/25/23 04:58 Creatinine 1.8 mg/dL (0.6-1.2) H 04/25/23 04:58 Estimated GFR (MDRD) 36 (>89) L 04/25/23 04:58 Glucose 105 mg/dL (70-100) H 04/25/23 04:58 POC Whole Bld Glucose 107 mg/dL (70 - 100) H 04/25/23 07:49 Estimat Average Glucose 123 mg/dL (70-100) H 04/24/23 04:43 Hemoglobin A1c % 5.9 % (4.27-6.07) 04/24/23 04:43 Lactic Acid 1.1 mmol/L (0.5-2.2) 04/23/23 08:06 Calcium 8.1 mg/dL (8.5-10.3) L 04/25/23 04:58 Phosphorus 2.6 mg/dL (2.5-4.6) 04/24/23 04:43 Magnesium 2.0 mg/dL (1.7-2.8) 04/24/23 04:43 Total Bilirubin 0.5 mg/dL (0.2-1.0) 04/23/23 08:06 AST 30 IU/L (10-42) 04/23/23 08:06 ALT 17 IU/L (10-60) 04/23/23 08:06 Alkaline Phosphatase 75 IU/L (42-121) 04/23/23 08:06 Total Creatine Kinase 474 IU/L (22-269) H 04/25/23 04:58 Total Protein 7.6 g/dL (6.7-8.2) 04/23/23 08:06 Albumin 3.8 g/dL (3.2-5.5) 04/23/23 08:06 Globulin 3.8 g/dL (2.1-4.2) 04/23/23 08:06 Albumin/Globulin Ratio 1.0 (1.0-2.2) 04/23/23 08:06 Triglycerides 50 mg/dL (-149) 04/24/23 04:43 Cholesterol 108 mg/dL (-199) 04/24/23 04:43 LDL Cholesterol, Calc 57 mg/dL (-129) 04/24/23 04:43 VLDL Cholesterol 10 mg/dL 04/24/23 04:43 HDL Cholesterol 41 mg/dL (60-) L 04/24/23 04:43 LDL/HDL Ratio 1.4 (<3.6) 04/24/23 04:43 Cholesterol/HDL Ratio 2.6 (<5.0) 04/24/23 04:43 Lipase 45 U/L (22-51) 04/23/23 08:06 TSH 1.65 uIU/mL (0.34-5.60) 04/23/23 08:06 Urine Color YELLOW 04/23/23 08:15 Urine Clarity CLEAR (CLEAR) 04/23/23 08:15 Urine pH 6.0 PH (5.0-7.5) 04/23/23 08:15 Ur Specific [place] 1.010 (1.002-1.030) 04/23/23 08:15 Urine Protein TRACE mg/dL (NEGATIVE) 04/23/23 08:15 Urine Glucose (UA) NEGATIVE mg/dL (NEGATIVE) 04/23/23 08:15 Urine Ketones NEGATIVE mg/dL (NEGATIVE) 04/23/23 08:15 Urine Occult Blood TRACE-INTA (NEGATIVE) 04/23/23 08:15 Urine Nitrite NEGATIVE (NEGATIVE) 04/23/23 08:15 Urine Bilirubin NEGATIVE (NEGATIVE) 04/23/23 08:15 Urine Urobilinogen 0.2 (NORMAL) E.U./dL (NORMAL) 04/23/23 08:15 Ur Leukocyte Esterase NEGATIVE (NEGATIVE) 04/23/23 08:15 Ur Microscopic Review NOT INDICATED 04/23/23 08:15 Urine Culture Comments NOT INDICATED 04/23/23 08:15 Nasal Adenovirus (PCR) NOT DETECTED 04/23/23 08:10 Nasal B. parapertussis DNA (PCR) NOT DETECTED 04/23/23 08:10 Nasal Coronavir 229E PCR NOT DETECTED 04/23/23 08:10 Nasal Coronavir HKU1 PCR NOT DETECTED 04/23/23 08:10 Nasal Coronavir NL63 PCR NOT DETECTED 04/23/23 08:10 Nasal Coronavir OC43 PCR NOT DETECTED 04/23/23 08:10 Nasal Enterovir/Rhinovir PCR NOT DETECTED 04/23/23 08:10 Nasal Influenza B PCR NOT DETECTED 04/23/23 08:10 Nasal Influenza A PCR NOT DETECTED 04/23/23 08:10 Nasal Parainfluen 1 PCR NOT DETECTED 04/23/23 08:10 Nasal Parainfluen 2 PCR NOT DETECTED 04/23/23 08:10 Nasal Parainfluen 3 PCR NOT DETECTED 04/23/23 08:10 Nasal Parainfluen 4 PCR NOT DETECTED 04/23/23 08:10 Nasal RSV (PCR) NOT DETECTED 04/23/23 08:10 Nasal B.pertussis DNA PCR NOT DETECTED 04/23/23 08:10 Nasal C.pneumoniae (PCR) NOT DETECTED 04/23/23 08:10 Louie Human Metapneumo PCR NOT DETECTED 04/23/23 08:10 Nasal M.pneumoniae (PCR) NOT DETECTED 04/23/23 08:10 Nasal SARS-CoV-2 (PCR) NOT DETECTED 04/23/23 08:10
[2023-04-26] MEDS: SODIUM CHLORIDE FLUSH 0.9% 10 ML SYRINGE IVP SCH ×3 (04:50→20:52)
[2023-04-26 06:05] LABS: CALCIUM 8.3 mg/dL (8.5-10.3); CREATININE 1.4 mg/dL (0.6-1.2); POTASSIUM 4.3 mmol/L (3.5-5.0)
[2023-04-26] MEDS: polyethylene glycoL 3350 17 GM PACKET PO SCH (08:15)
[2023-04-26] MEDS: DOCUSATE SODIUM 250 MG CAPSULE PO SCH (08:15)
[2023-04-26] MEDS: CLOPIDOGREL 75 MG TABLET PO SCH (08:15)
[2023-04-26] MEDS: ASPIRIN EC 81 MG TABLET PO SCH (08:15)
[2023-04-26] MEDS: MULTIVITAMIN W/MINERALS TABLET PO SCH (08:15)
[2023-04-26 09:09] LABS: BASOPHILS # (AUTO) 0.1 10^3/uL (0.0-0.1); BASOPHILS % (AUTO) 1.3 %; EOSINOPHILS # (AUTO) 0.7 10^3/uL (0.0-0.7); EOSINOPHILS % (AUTO) 9.4 %; HCT - HEMATOCRIT 30.6 % (42.0-52.0); HGB - HEMOGLOBIN 9.5 g/dL (14.0-18.0); LYMPHOCYTES # (AUTO) 1.3 10^3/uL (1.5-3.5); LYMPHOCYTES % (AUTO) 16.9 %; MEAN CORPUSCULAR HEMOGLOBIN 29.1 pg (27.0-31.0); MEAN CORPUSCULAR VOLUME 93.9 fL (80.0-94.0); MEAN PLATELET VOLUME 9.7 fL (7.4-11.4); MONOCYTES # (AUTO) 0.7 10^3/uL (0.0-1.0); MONOCYTES % (AUTO) 8.7 %; NEUTROPHILS # (AUTO) 4.8 10^3/uL (1.5-6.6); NEUTROPHILS % (AUTO) 63.4 %; PLT - PLATELET COUNT 265 10^3/uL (130-450); RED BLOOD COUNT 3.26 10^6/uL (4.70-6.10); RED CELL DISTRIBUTION WIDTH 14.3 % (12.0-15.0); WHITE BLOOD COUNT 7.6 x10^3/uL (4.8-10.8)
--- NOTE | 2023-04-26 16:48 | PROVIDER PROGRESS NOTE ---
Assessment/Plan - Problem List (1) Acute right MCA stroke Assessment/Plan: Assessment/Plan: The patient presented outside of the window of having intervention such as tPA, despite RCA distribution strokes seen on brain imaging. Neuro stroke team was therefore not contacted by the ED, to give any other recommendations. His left arm mostly and left leg remain weak. I ordered CTA of head and neck with contrast which showed L ICA 50% stenosis His fasting lipid panel shows LDL of 59 (all labs were reviewed). This supports the Hx of weight loss and I did not order a statin. Plan: Remain on telemetry Neurochecks every 4 hours Allow permissive hypertension for 48 hours. I was planning on today resuming his BP meds Losartan, but he is orthostatic so will not order Losartan I ordered PT and OT for evaluation and treatment (but he came in late Tue and we had no PT or OT here until today, Tuesday). He agrees and the granddaughter Lilly in the room today, agrees he may need to go to SNF for rehab before returning home. I ordered a complete Echo with bubble study. With this stroke distribution, it suggests he had a "shower" of emboli, so he may have an intra-cardiac clot. (2) Fall at home Impression: The patient had reported that he just fell because of the left arm and leg weakness and does not think he had syncope, he then crawled to a phone and called 911. On 04/24 his granddaughter Lilly and great granddaughter were in the room and the great granddaughter reported "my great grandpa was on the floor for 2 hours". In fact, Lilly said that when she came to be with him yesterday morning at 8 AM, she "found his shoes and his cane there, but no grandpa" and she had to call around to various hospitals to find him. I checked total CK to rule out rhabdomyolysis I ordered orthostatic vital signs be checked Plan: Start working with PT and OT today (3) Orthostatic hypotension His first set of orthostatic vital signs were done yesterday and showed a supine BP 105/56, heart rate 59. Sitting BP 99/54. With standing his heart rate sondra to 75. 2 L of IV NS was ordered. Plan: I will not order restart of his home Losartan med Continue to follow orthostatic vital signs daily Start working with PT and OT today (4) Poor memory Impression: On 04/24 his grand-daughter Lilly was in the room and gave me a more detailed Hx: When this patient's 7 months ago, Lilly moved 3 houses away from him, moving here from [place]. There is also a great granddaughter who Lilly shares custody with her ex, so the great granddaughter is also here [facility]. Lilly stays with the pt from 8 AM to 10 PM every day, also Lilly's mother, the patient's daughter Giovanna, comes over after work and makes dinner every night and they all 3 have dinner together, 7 days a week. This patient's memory is extremely poor, Lilly said. He does not member that he did go to see Dr. Mullins, his new PCP, last week Tuesday. It was the dentist's office that canceled his appointment for last , not Dr. Mullins. Plan: In my meeting with Lilly on 04/24, I advised that the patient now have 24/7 caregiving help in his house, since he wants to stay there as long as possible, given his poor memory and the recent fall. Lilly said that she could leave the house which she is in, 3 houses down from him, and move in with him. I requested a social work consult. (5) DM type 2 (diabetes mellitus, type 2) Conclusion/Plan: Patient admitted that he does not follow a diabetic diet or take any metformin which he used to take remotely or check his fingerstick glu at all. Lilly told me today that the patient told her that he had "diet-controlled diabetes" His A1c came back at 5.9 consistent with no DM or well controlled DM if he was on a diet Plan: I will cancel the diabetic diet, fingerstick checks, SS insulin coverage, hypoglycemia protocol I will request a consult from [employer] I ordered diabetic teaching, but I suspect he will not remember any teaching. Marketing Traffic Coordinator will have to work with the daughter Giovanna and the granddaughter Lilly (6) MDS (myelodysplastic syndrome) Conclusion/Plan: As per history. He admitted that he has not seen his oncologist in about a year. His hemoglobin is 10.1 and this is where he usually runs, from my review of his EMRR Plan: Follow hemoglobin daily, would transfuse if <7 (7) CKD (chronic kidney disease) Conclusion/Plan: His admission creatinine is 1.6 (all labs were reviewed). I looked at his EMR, and he always runs creatinine of 1.6. Yesterday creat was 1.5, today 1.8. He was orthostatic yesterday and 2 L of NS were ordered yesterday afternoon. Plan: 2 L of IV NS were ordered yesterday afternoon, which should help the creat Avoid nephrotoxins (8) Noncompliance with medication regimen Conclusion/Plan: This patient flat out told me at admission that he only takes his Losartan, no other medications, no diabetic management He shared with me that his 7 months ago. He reported that his daughter checks on him and is the meal maker. He told me nothing about the granddaughter Lilly staying with him every day from 8 am to 10 pm. Plan: I will ask for social work evaluation for poss reactive depression Also Social Work to help with living situation/caregiving (9) Severe protein calorie malnutrition Conclusion/Plan: I reviewed his entire EMR and weight loss has been mentioned for several years. He has lost 15 pounds in under a year. There is significant loss of subcutaneous fat and muscle I ordered a high-calorie/protein supplements with meals Plan: Nutrition consult will be ordered (10) Psoriasis Conclusion/Plan: He used to be on methotrexate but has not taken it for about a year, he told our pharmacist. He told me it was his choice to stop this medication. Also he did say he has not seen a PCP in 1 year. - Current Meds Current Meds: Current Medications Generic Name Dose Route Start Last Admin Trade Name Jayjay PRN Reason Stop Dose Admin Aspirin 81 mg 04/24/23 09:00 04/26/23 08:15 Aspirin Ec 81 Mg Tablet PO 81 mg DAILY JEFFERSON Administration Clopidogrel Bisulfate 75 mg 04/25/23 09:00 04/26/23 08:15 Clopidogrel 75 Mg Tablet PO 75 mg DAILY JEFFERSON Administration Docusate Sodium 250 - 500 mg 04/24/23 09:00 04/26/23 08:15 Docusate Sodium 250 Mg Capsule PO 500 mg DAILY JEFFERSON Administration Multivitamins/Minerals 1 tab 04/25/23 10:00 04/26/23 08:15 Multivitamin W/Minerals Tablet PO 1 tab DAILYWM JEFFERSON Administration Polyethylene Glycol 17 gm 04/24/23 09:00 04/26/23 08:15 Polyethylene Glycol 3350 17 Gm Packet PO 17 gm DAILY JEFFERSON Administration Sodium Chloride 10 ml 04/23/23 17:00 04/26/23 08:16 Sodium Chloride Flush 0.9% 10 Ml Syringe IVP 10 ml 0100,0900,1700 JEFFERSON Administration - Lab Result Fish Bone Diagrams: 04/26/23 09:05 04/26/23 04:54 - Diagnostic Imaging Results Diagnostic Imaging Results: Final report reviewed (Echocardiogram final report shows 1. Overall left ventricular systolic function is normal with an ejection fraction of 60 to 65% 2. Impaired relaxation consistent with grade 1 diastolic dysfunction 3. Right ventricular size is normal 4. Right ventricular systolic function is normal 5. No concer) - Additional Planning My Orders: My Active Orders 04/26/23 Lunch Regular Diet [DIET] 04/27/23 05:00 BMP, RFLX TO IONIZED CA IF [CHEM] DAILYLAB CBC - COMP BLD CT W/AUTO DIFF [HEME] DAILYLAB 04/28/23 05:00 BMP, RFLX TO IONIZED CA IF [CHEM] DAILYLAB CBC - COMP BLD CT W/AUTO DIFF [HEME] DAILYLAB 04/29/23 05:00 BMP, RFLX TO IONIZED CA IF [CHEM] DAILYLAB CBC - COMP BLD CT W/AUTO DIFF [HEME] DAILYLAB Objective Vital Signs: Vital Signs - 24 hr 04/25/23 04/26/23 04/26/23 20:42 00:03 04:06 Temperature 36.6 C 36.8 C 36.7 C Heart Rate [ 55 L Brachial] Heart Rate [ 60 57 L Monitoring electrodes] Respiratory 20 16 12 Rate Blood Pressure 162/56 H 156/60 H 153/55 H [Right Brachial artery] O2 Saturation 100 100 99 04/26/23 04/26/23 04/26/23 08:13 13:00 15:48 Temperature 36.7 C 36.5 C 36.4 C L Heart Rate [ 67 69 Brachial] Heart Rate [ 66 Monitoring electrodes] Respiratory 16 16 16 Rate Blood Pressure 167/61 H 155/59 H 156/61 H [Right Brachial artery] O2 Saturation 99 98 100 Oxygen O2 Source Room air I&O (Last 24 Hrs): Intake and Output Totals x24h 04/24/23 04/25/23 04/26/23 23:59 23:59 23:59 Intake Total 1180 3750 1000 Output Total 775 1350 1700 Balance 405 2400 -700 - Results Results: Laboratory Results WBC 7.6 x10^3/uL (4.8-10.8) 04/26/23 09:05 RBC 3.26 10^6/uL (4.70-6.10) L 04/26/23 09:05 Hgb 9.5 g/dL (14.0-18.0) L 04/26/23 09:05 Hct 30.6 % (42.0-52.0) L 04/26/23 09:05 MCV 93.9 fL (80.0-94.0) 04/26/23 09:05 MCH 29.1 pg (27.0-31.0) 04/26/23 09:05 MCHC 31.0 g/dL (32.0-36.0) L 04/26/23 09:05 RDW 14.3 % (12.0-15.0) 04/26/23 09:05 Plt Count 265 10^3/uL (130-450) 04/26/23 09:05 MPV 9.7 fL (7.4-11.4) 04/26/23 09:05 Neut # (Auto) 4.8 10^3/uL (1.5-6.6) 04/26/23 09:05 Lymph # (Auto) 1.3 10^3/uL (1.5-3.5) L 04/26/23 09:05 [place] # (Auto) 0.7 10^3/uL (0.0-1.0) 04/26/23 09:05 Eos # (Auto) 0.7 10^3/uL (0.0-0.7) 04/26/23 09:05 Baso # (Auto) 0.1 10^3/uL (0.0-0.1) 04/26/23 09:05 Absolute Nucleated RBC 0.00 x10^3/uL 04/26/23 09:05 Nucleated RBC % 0.0 /100WBC 04/26/23 09:05 Sodium 141 mmol/L (135-145) 04/26/23 04:54 Potassium 4.3 mmol/L (3.5-5.0) 04/26/23 04:54 Chloride 110 mmol/L (101-111) 04/26/23 04:54 Carbon Dioxide 25 mmol/L (21-32) 04/26/23 04:54 Anion Gap 6.0 (6-13) 04/26/23 04:54 BUN 33 mg/dL (6-20) H 04/26/23 04:54 Creatinine 1.4 mg/dL (0.6-1.2) H 04/26/23 04:54 Estimated GFR (MDRD) 48 (>89) L 04/26/23 04:54 Glucose 116 mg/dL (70-100) H 04/26/23 04:54 POC Whole Bld Glucose 107 mg/dL (70 - 100) H 04/25/23 07:49 Estimat Average Glucose 123 mg/dL (70-100) H 04/24/23 04:43 Hemoglobin A1c % 5.9 % (4.27-6.07) 04/24/23 04:43 Lactic Acid 1.1 mmol/L (0.5-2.2) 04/23/23 08:06 Calcium 8.3 mg/dL (8.5-10.3) L 04/26/23 04:54 Phosphorus 2.6 mg/dL (2.5-4.6) 04/24/23 04:43 Magnesium 2.0 mg/dL (1.7-2.8) 04/24/23 04:43 Total Bilirubin 0.5 mg/dL (0.2-1.0) 04/23/23 08:06 AST 30 IU/L (10-42) 04/23/23 08:06 ALT 17 IU/L (10-60) 04/23/23 08:06 Alkaline Phosphatase 75 IU/L (42-121) 04/23/23 08:06 Total Creatine Kinase 474 IU/L (22-269) H 04/25/23 04:58 Total Protein 7.6 g/dL (6.7-8.2) 04/23/23 08:06 Albumin 3.8 g/dL (3.2-5.5) 04/23/23 08:06 Globulin 3.8 g/dL (2.1-4.2) 04/23/23 08:06 Albumin/Globulin Ratio 1.0 (1.0-2.2) 04/23/23 08:06 Triglycerides 50 mg/dL (-149) 04/24/23 04:43 Cholesterol 108 mg/dL (-199) 04/24/23 04:43 LDL Cholesterol, Calc 57 mg/dL (-129) 04/24/23 04:43 VLDL Cholesterol 10 mg/dL 04/24/23 04:43 HDL Cholesterol 41 mg/dL (60-) L 04/24/23 04:43 LDL/HDL Ratio 1.4 (<3.6) 04/24/23 04:43 Cholesterol/HDL Ratio 2.6 (<5.0) 04/24/23 04:43 Lipase 45 U/L (22-51) 04/23/23 08:06 TSH 1.65 uIU/mL (0.34-5.60) 04/23/23 08:06 Urine Color YELLOW 04/23/23 08:15 Urine Clarity CLEAR (CLEAR) 04/23/23 08:15 Urine pH 6.0 PH (5.0-7.5) 04/23/23 08:15 Ur Specific [place] 1.010 (1.002-1.030) 04/23/23 08:15 Urine Protein TRACE mg/dL (NEGATIVE) 04/23/23 08:15 Urine Glucose (UA) NEGATIVE mg/dL (NEGATIVE) 04/23/23 08:15 Urine Ketones NEGATIVE mg/dL (NEGATIVE) 04/23/23 08:15 Urine Occult Blood TRACE-INTA (NEGATIVE) 04/23/23 08:15 Urine Nitrite NEGATIVE (NEGATIVE) 04/23/23 08:15 Urine Bilirubin NEGATIVE (NEGATIVE) 04/23/23 08:15 Urine Urobilinogen 0.2 (NORMAL) E.U./dL (NORMAL) 04/23/23 08:15 Ur Leukocyte Esterase NEGATIVE (NEGATIVE) 04/23/23 08:15 Ur Microscopic Review NOT INDICATED 04/23/23 08:15 Urine Culture Comments NOT INDICATED 04/23/23 08:15 Nasal Adenovirus (PCR) NOT DETECTED 04/23/23 08:10 Nasal B. parapertussis DNA (PCR) NOT DETECTED 04/23/23 08:10 Nasal Coronavir 229E PCR NOT DETECTED 04/23/23 08:10 Nasal Coronavir HKU1 PCR NOT DETECTED 04/23/23 08:10 Nasal Coronavir NL63 PCR NOT DETECTED 04/23/23 08:10 Nasal Coronavir OC43 PCR NOT DETECTED 04/23/23 08:10 Nasal Enterovir/Rhinovir PCR NOT DETECTED 04/23/23 08:10 Nasal Influenza B PCR NOT DETECTED 04/23/23 08:10 Nasal Influenza A PCR NOT DETECTED 04/23/23 08:10 Nasal Parainfluen 1 PCR NOT DETECTED 04/23/23 08:10 Nasal Parainfluen 2 PCR NOT DETECTED 04/23/23 08:10 Nasal Parainfluen 3 PCR NOT DETECTED 04/23/23 08:10 Nasal Parainfluen 4 PCR NOT DETECTED 04/23/23 08:10 Nasal RSV (PCR) NOT DETECTED 04/23/23 08:10 Nasal B.pertussis DNA PCR NOT DETECTED 04/23/23 08:10 Nasal C.pneumoniae (PCR) NOT DETECTED 04/23/23 08:10 Louie Human Metapneumo PCR NOT DETECTED 04/23/23 08:10 Nasal M.pneumoniae (PCR) NOT DETECTED 04/23/23 08:10 Nasal SARS-CoV-2 (PCR) NOT DETECTED 04/23/23 08:10 ABX Reporting Has patient been on IV antibiotics over the past 48 hours?: No
[2023-04-27] MEDS: SODIUM CHLORIDE FLUSH 0.9% 10 ML SYRINGE IVP SCH ×4 (00:54→18:00)
[2023-04-27 05:40] LABS: BASOPHILS # (AUTO) 0.1 10^3/uL (0.0-0.1); EOSINOPHILS # (AUTO) 0.6 10^3/uL (0.0-0.7); EOSINOPHILS % (AUTO) 8.9 %; HCT - HEMATOCRIT 26.4 % (42.0-52.0); HGB - HEMOGLOBIN 8.3 g/dL (14.0-18.0); LYMPHOCYTES # (AUTO) 1.6 10^3/uL (1.5-3.5); LYMPHOCYTES % (AUTO) 23.2 %; MEAN CORPUSCULAR HEMOGLOBIN 28.9 pg (27.0-31.0); MEAN CORPUSCULAR HGB CONC 31.4 g/dL (32.0-36.0); MONOCYTES # (AUTO) 0.8 10^3/uL (0.0-1.0); MONOCYTES % (AUTO) 11.7 %; NEUTROPHILS # (AUTO) 3.9 10^3/uL (1.5-6.6); NEUTROPHILS % (AUTO) 55.1 %; PLT - PLATELET COUNT 247 10^3/uL (130-450); RED BLOOD COUNT 2.87 10^6/uL (4.70-6.10); RED CELL DISTRIBUTION WIDTH 14.2 % (12.0-15.0); WHITE BLOOD COUNT 7.1 x10^3/uL (4.8-10.8)
[2023-04-27 05:48] LABS: BUN - BLOOD UREA NITROGEN 31 mg/dL (6-20); CALCIUM 8.1 mg/dL (8.5-10.3); CARBON DIOXIDE - CO2 25 mmol/L (21-32); CHLORIDE 111 mmol/L (101-111); CREATININE 1.4 mg/dL (0.6-1.2); GFR - MDRD 48 (>89); GLUCOSE 113 mg/dL (70-100); IONIZED CALCIUM IF INDICATED YES; SODIUM 141 mmol/L (135-145)
[2023-04-27 06:01] LABS: CALCIUM, IONIZED 1.12 mmol/L (1.15-1.33); VBG PH 7.399 (7.31-7.41)
[2023-04-27] MEDS: MULTIVITAMIN W/MINERALS TABLET PO SCH (08:35)
[2023-04-27] MEDS: polyethylene glycoL 3350 17 GM PACKET PO SCH (08:35)
[2023-04-27] MEDS: ASPIRIN EC 81 MG TABLET PO SCH (08:35)
[2023-04-27] MEDS: DOCUSATE SODIUM 250 MG CAPSULE PO SCH (08:35)
[2023-04-27] MEDS: CLOPIDOGREL 75 MG TABLET PO SCH (08:35)
--- NOTE | 2023-04-27 15:54 | PROVIDER PROGRESS NOTE ---
Assessment/Plan - Problem List (1) Acute right MCA stroke Assessment/Plan: Assessment/Plan: Conclusion/Plan: NPO except sips and ice chips Possible NSAID induced gastritis and ulcer IV protonbix bid Surgery consulted by ER Plan fopr EGD in am Transfuse if Hb < 7 Verbal consent obtained for blood transfusion Per general surgery post EGD this a.m.: 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 Epi injected, biopsies taken. Plan to continue to monitor Hgb, treat with PPI and carafate prn epigastric pain. If patient rebleeds, I would plan to repeat EGD. Echocardiogram was completed with bubble study and showed 1. Overall left ventricular systolic function is normal with an ejection fraction of 60 to 65% 2. Impaired relaxation consistent with grade 1 diastolic dysfunction 3. The right ventricle size is normal 4. The right ventricular systolic function is normal. 5. No concerning cardiac valvular disease noted Will continue current medication regimen as determined by previous hospitalist. [facility]waiting [facility] facility placement. (3) Depression Conclusion/Plan: Continue Lexapro in good spirits no SI or Hi (5) History of hip surgery Conclusion/Plan: Tylenol or moprhine prn pain Hold NSAIDS PT to work with patient - Current Meds Current Meds: Current Medications Generic Name Dose Route Start Last Admin Trade Name Freq PRN Reason Stop Dose Admin Aspirin 81 mg 04/24/23 09:00 04/27/23 08:35 Aspirin Ec 81 Mg Tablet PO 81 mg DAILY JEFFERSON Administration Clopidogrel Bisulfate 75 mg 04/25/23 09:00 04/27/23 08:35 Clopidogrel 75 Mg Tablet PO 75 mg DAILY JEFFERSON Administration Docusate Sodium 250 - 500 mg 04/24/23 09:00 04/27/23 08:35 Docusate Sodium 250 Mg Capsule PO 250 mg DAILY JEFFERSON Administration Multivitamins/Minerals 1 tab 04/25/23 10:00 04/27/23 08:35 Multivitamin W/Minerals Tablet PO 1 tab DAILYWM JEFFERSON Administration Polyethylene Glycol 17 gm 04/24/23 09:00 04/27/23 08:35 Polyethylene Glycol 3350 17 Gm Packet PO 17 gm DAILY JEFFERSON Administration Sodium Chloride 10 ml 04/23/23 17:00 04/27/23 08:35 Sodium Chloride Flush 0.9% 10 Ml Syringe IVP 10 ml 0100,0900,1700 JEFFERSON Administration - Lab Result Fish Bone Diagrams: 04/27/23 05:27 04/27/23 05:27 - Additional Planning My Orders: My Active Orders 04/28/23 05:00 BMP, RFLX TO IONIZED CA IF [CHEM] DAILYLAB CBC - COMP BLD CT W/AUTO DIFF [HEME] DAILYLAB 04/29/23 05:00 BMP, RFLX TO IONIZED CA IF [CHEM] DAILYLAB CBC - COMP BLD CT W/AUTO DIFF [HEME] DAILYLAB Subjective - Subjective Patient Reports: Feeling Better Nursing Reports: No Complaints Objective Vital Signs: Vital Signs - 24 hr 04/26/23 04/26/23 04/27/23 20:02 23:36 04:01 Temperature 36.6 C 36.6 C 36.5 C Heart Rate [ 65 65 Brachial] Heart Rate [ 59 L Monitoring electrodes] Respiratory 16 14 20 Rate Blood Pressure 139/57 H 134/48 H 126/54 L [Right Brachial artery] O2 Saturation 100 99 99 04/27/23 04/27/23 04/27/23 08:12 11:19 15:40 Temperature 36.7 C 36.8 C 36.4 C L Heart Rate [ 68 57 L 63 Brachial] Heart Rate [ Monitoring electrodes] Respiratory 16 16 16 Rate Blood Pressure 131/53 H 127/57 L 136/80 H [Right Brachial artery] O2 Saturation 97 98 100 Oxygen O2 Source Room air I&O (Last 24 Hrs): Intake and Output Totals x24h 04/25/23 04/26/23 04/27/23 23:59 23:59 23:59 Intake Total 3750 1600 700 Output Total 1350 2250 400 Balance 2400 -650 300 General: Alert, Oriented x3 HEENT: PERRLA, EOMI Neuro: Alert, Focal Deficits, Oriented Times 3 Cardiovascular: Regular rate, Normal S1 Respiratory: No respiratory distress, Breath sounds nml Abdomen: Soft Skin: No rashes - Results Results: Laboratory Results WBC 7.1 x10^3/uL (4.8-10.8) 04/27/23 05:27 RBC 2.87 10^6/uL (4.70-6.10) L 04/27/23 05:27 Hgb 8.3 g/dL (14.0-18.0) L 04/27/23 05:27 Hct 26.4 % (42.0-52.0) L 04/27/23 05:27 MCV 92.0 fL (80.0-94.0) 04/27/23 05:27 MCH 28.9 pg (27.0-31.0) 04/27/23 05:27 MCHC 31.4 g/dL (32.0-36.0) L 04/27/23 05:27 RDW 14.2 % (12.0-15.0) 04/27/23 05:27 Plt Count 247 10^3/uL (130-450) 04/27/23 05:27 MPV 10.0 fL (7.4-11.4) 04/27/23 05:27 Neut # (Auto) 3.9 10^3/uL (1.5-6.6) 04/27/23 05:27 Lymph # (Auto) 1.6 10^3/uL (1.5-3.5) 04/27/23 05:27 [place] # (Auto) 0.8 10^3/uL (0.0-1.0) 04/27/23 05:27 Eos # (Auto) 0.6 10^3/uL (0.0-0.7) 04/27/23 05:27 Baso # (Auto) 0.1 10^3/uL (0.0-0.1) 04/27/23 05:27 Absolute Nucleated RBC 0.00 x10^3/uL 04/27/23 05:27 Nucleated RBC % 0.0 /100WBC 04/27/23 05:27 VBG pH 7.399 (7.31-7.41) 04/27/23 05:27 Ionized Calcium 1.12 mmol/L (1.15-1.33) L 04/27/23 05:27 Sodium 141 mmol/L (135-145) 04/27/23 05:27 Potassium 4.0 mmol/L (3.5-5.0) 04/27/23 05:27 Chloride 111 mmol/L (101-111) 04/27/23 05:27 Carbon Dioxide 25 mmol/L (21-32) 04/27/23 05:27 Anion Gap 5.0 (6-13) L 04/27/23 05:27 BUN 31 mg/dL (6-20) H 04/27/23 05:27 Creatinine 1.4 mg/dL (0.6-1.2) H 04/27/23 05:27 Estimated GFR (MDRD) 48 (>89) L 04/27/23 05:27 Glucose 113 mg/dL (70-100) H 04/27/23 05:27 POC Whole Bld Glucose 107 mg/dL (70 - 100) H 04/25/23 07:49 Estimat Average Glucose 123 mg/dL (70-100) H 04/24/23 04:43 Hemoglobin A1c % 5.9 % (4.27-6.07) 04/24/23 04:43 Lactic Acid 1.1 mmol/L (0.5-2.2) 04/23/23 08:06 Calcium 8.1 mg/dL (8.5-10.3) L 04/27/23 05:27 Ionized Calcium YES 04/27/23 05:27 Phosphorus 2.6 mg/dL (2.5-4.6) 04/24/23 04:43 Magnesium 2.0 mg/dL (1.7-2.8) 04/24/23 04:43 Total Bilirubin 0.5 mg/dL (0.2-1.0) 04/23/23 08:06 AST 30 IU/L (10-42) 04/23/23 08:06 ALT 17 IU/L (10-60) 04/23/23 08:06 Alkaline Phosphatase 75 IU/L (42-121) 04/23/23 08:06 Total Creatine Kinase 474 IU/L (22-269) H 04/25/23 04:58 Total Protein 7.6 g/dL (6.7-8.2) 04/23/23 08:06 Albumin 3.8 g/dL (3.2-5.5) 04/23/23 08:06 Globulin 3.8 g/dL (2.1-4.2) 04/23/23 08:06 Albumin/Globulin Ratio 1.0 (1.0-2.2) 04/23/23 08:06 Triglycerides 50 mg/dL (-149) 04/24/23 04:43 Cholesterol 108 mg/dL (-199) 04/24/23 04:43 LDL Cholesterol, Calc 57 mg/dL (-129) 04/24/23 04:43 VLDL Cholesterol 10 mg/dL 04/24/23 04:43 HDL Cholesterol 41 mg/dL (60-) L 04/24/23 04:43 LDL/HDL Ratio 1.4 (<3.6) 04/24/23 04:43 Cholesterol/HDL Ratio 2.6 (<5.0) 04/24/23 04:43 Lipase 45 U/L (22-51) 04/23/23 08:06 TSH 1.65 uIU/mL (0.34-5.60) 04/23/23 08:06 Urine Color YELLOW 04/23/23 08:15 Urine Clarity CLEAR (CLEAR) 04/23/23 08:15 Urine pH 6.0 PH (5.0-7.5) 04/23/23 08:15 Ur Specific [place] 1.010 (1.002-1.030) 04/23/23 08:15 Urine Protein TRACE mg/dL (NEGATIVE) 04/23/23 08:15 Urine Glucose (UA) NEGATIVE mg/dL (NEGATIVE) 04/23/23 08:15 Urine Ketones NEGATIVE mg/dL (NEGATIVE) 04/23/23 08:15 Urine Occult Blood TRACE-INTA (NEGATIVE) 04/23/23 08:15 Urine Nitrite NEGATIVE (NEGATIVE) 04/23/23 08:15 Urine Bilirubin NEGATIVE (NEGATIVE) 04/23/23 08:15 Urine Urobilinogen 0.2 (NORMAL) E.U./dL (NORMAL) 04/23/23 08:15 Ur Leukocyte Esterase NEGATIVE (NEGATIVE) 04/23/23 08:15 Ur Microscopic Review NOT INDICATED 04/23/23 08:15 Urine Culture Comments NOT INDICATED 04/23/23 08:15 Nasal Adenovirus (PCR) NOT DETECTED 04/23/23 08:10 Nasal B. parapertussis DNA (PCR) NOT DETECTED 04/23/23 08:10 Nasal Coronavir 229E PCR NOT DETECTED 04/23/23 08:10 Nasal Coronavir HKU1 PCR NOT DETECTED 04/23/23 08:10 Nasal Coronavir NL63 PCR NOT DETECTED 04/23/23 08:10 Nasal Coronavir OC43 PCR NOT DETECTED 04/23/23 08:10 Nasal Enterovir/Rhinovir PCR NOT DETECTED 04/23/23 08:10 Nasal Influenza B PCR NOT DETECTED 04/23/23 08:10 Nasal Influenza A PCR NOT DETECTED 04/23/23 08:10 Nasal Parainfluen 1 PCR NOT DETECTED 04/23/23 08:10 Nasal Parainfluen 2 PCR NOT DETECTED 04/23/23 08:10 Nasal Parainfluen 3 PCR NOT DETECTED 04/23/23 08:10 Nasal Parainfluen 4 PCR NOT DETECTED 04/23/23 08:10 Nasal RSV (PCR) NOT DETECTED 04/23/23 08:10 Nasal B.pertussis DNA PCR NOT DETECTED 04/23/23 08:10 Nasal C.pneumoniae (PCR) NOT DETECTED 04/23/23 08:10 Louie Human Metapneumo PCR NOT DETECTED 04/23/23 08:10 Nasal M.pneumoniae (PCR) NOT DETECTED 04/23/23 08:10 Nasal SARS-CoV-2 (PCR) NOT DETECTED 04/23/23 08:10 ABX Reporting Has patient been on IV antibiotics over the past 48 hours?: No
[2023-04-28] MEDS: SODIUM CHLORIDE FLUSH 0.9% 10 ML SYRINGE IVP SCH ×2 (01:37→09:03)
[2023-04-28 04:57] LABS: BASOPHILS # (AUTO) 0.1 10^3/uL (0.0-0.1); EOSINOPHILS # (AUTO) 0.7 10^3/uL (0.0-0.7); EOSINOPHILS % (AUTO) 8.4 %; HCT - HEMATOCRIT 27.8 % (42.0-52.0); HGB - HEMOGLOBIN 8.7 g/dL (14.0-18.0); LYMPHOCYTES # (AUTO) 1.4 10^3/uL (1.5-3.5); LYMPHOCYTES % (AUTO) 17.7 %; MEAN CORPUSCULAR HEMOGLOBIN 28.9 pg (27.0-31.0); MEAN CORPUSCULAR HGB CONC 31.3 g/dL (32.0-36.0); MEAN CORPUSCULAR VOLUME 92.4 fL (80.0-94.0); MEAN PLATELET VOLUME 9.5 fL (7.4-11.4); MONOCYTES % (AUTO) 12.3 %; NEUTROPHILS # (AUTO) 4.9 10^3/uL (1.5-6.6); NEUTROPHILS % (AUTO) 60.4 %; PLT - PLATELET COUNT 248 10^3/uL (130-450); RED BLOOD COUNT 3.01 10^6/uL (4.70-6.10); RED CELL DISTRIBUTION WIDTH 14.1 % (12.0-15.0); WHITE BLOOD COUNT 8.1 x10^3/uL (4.8-10.8)
[2023-04-28 05:12] LABS: BUN - BLOOD UREA NITROGEN 33 mg/dL (6-20); CALCIUM 8.3 mg/dL (8.5-10.3); CARBON DIOXIDE - CO2 27 mmol/L (21-32); CHLORIDE 109 mmol/L (101-111); CREATININE 1.5 mg/dL (0.6-1.2); GFR - MDRD 44 (>89); GLUCOSE 125 mg/dL (70-100); IONIZED CALCIUM IF INDICATED YES; POTASSIUM 4.6 mmol/L (3.5-5.0); SODIUM 140 mmol/L (135-145)
[2023-04-28 05:22] LABS: CALCIUM, IONIZED 1.11 mmol/L (1.15-1.33); VBG PH 7.401 (7.31-7.41)
[2023-04-28] MEDS: MULTIVITAMIN W/MINERALS TABLET PO SCH (09:02)
[2023-04-28] MEDS: polyethylene glycoL 3350 17 GM PACKET PO SCH (09:02)
[2023-04-28] MEDS: ASPIRIN EC 81 MG TABLET PO SCH (09:02)
[2023-04-28] MEDS: DOCUSATE SODIUM 250 MG CAPSULE PO SCH (09:02)
[2023-04-28] MEDS: CLOPIDOGREL 75 MG TABLET PO SCH (09:02)
[2023-04-28] MEDS ORDERED: ZINC OXIDE 20% OINT 30 GM TUBE TOP PRN (09:05)
--- NOTE | 2023-04-28 13:16 | Discharge Plan ---
"Discharge Plan for SNF / [facility] - Discharge Plan And Transition Orders Problem Reviewed?: Yes Disposition: 03 SNF DC/Xfer Condition: Stable Allergies and Adverse Reactions: Allergies Allergy/AdvReac Type Severity Reaction Status Date / Time No Known Drug Allergies Allergy Verified 04/23/23 07:47 Assessment: (1) Acute right MCA stroke Assessment/Plan: Assessment/Plan: Conclusion/Plan: NPO except sips and ice chips Possible NSAID induced gastritis and ulcer IV protonbix bid Surgery consulted by ER Plan fopr EGD in am Transfuse if Hb < 7 Verbal consent obtained for blood transfusion Per general surgery post EGD this a.m.: 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 Epi injected, biopsies taken. Plan to continue to monitor Hgb, treat with PPI and carafate prn epigastric pain. If patient rebleeds, I would plan to repeat EGD. Echocardiogram was completed with bubble study and showed 1. Overall left ventricular systolic function is normal with an ejection fraction of 60 to 65% 2. Impaired relaxation consistent with grade 1 diastolic dysfunction 3. The right ventricle size is normal 4. The right ventricular systolic function is normal. 5. No concerning cardiac valvular disease noted Will continue current medication regimen as determined by previous hospitalist. Awaiting group home facility placement. (3) Depression Conclusion/Plan: Continue Lexapro in good spirits no SI or Hi (5) History of hip surgery Conclusion/Plan: Tylenol or moprhine prn pain Hold NSAIDS PT to work with patient - SNF / [facility] Transition Orders Admit to (Facility): [facility] Discharge Diagnosis: r MCA CVA Medicare Certification Statement: I certify that Post Hospital group home care is medically necessary on a continuing basis for any of the conditions for which she/he is receiving care during hospitalization. Notify PCP of admission and forward orders to primary provider for signature. Weight on admission and: Weekly Other Notification Orders: Call PCP immediately if patient develops dyspnea, chest pain/tightness or edema. House Bowel Program: Yes Additional Bowel Program Orders: If no BM after 2 days, nurse may give M.O.M. 30ml PO PRN and/or ducolax Supp 1 MN and/or JUAN CARLOS 250mg P.O., and/or senna 1-2 tabs PO. On day 3 nurse may give repeat above order until residents constipation is resolved. Annual Influenza Vaccine (between Jul 22 and February 18): Yes Two-step PPD per [facility] [phone] or approved exception documents: Yes Medication Orders: PLEASE REFER TO THE DISCHARGE MEDICATION LIST. Insulin Orders?: No - Medications New Prescriptions: Acetaminophen [Tylenol] 650 mg PO Q4HR PRN #30 tab PRN Reason: Pain 1 to 4, or Fever Docusate Sodium 250Mg Capsule [Colace 250Mg Capsule] 250 - 500 mg PO DAILY #30 cap Aspirin EC [Ecotrin] 81 mg PO DAILY #30 tab polyethylene glycoL 3350 [Miralax] 17 gm PO DAILY #30 packet Clopidogrel [Plavix] 75 mg PO DAILY #30 tab Multivitamin W/Minerals [Theragran M] 1 tab PO DAILYWM #30 tab - Diet Type: Geriatric - Therapies | Activity Therapy: Evaluation | Treat if indicated: Speech, PT, OT Rehabilitation Potential: Maximize functional status, Return to independent living Activity: Activity as Tolerated Weight Bearing: Full Weight"
--- NOTE | 2023-04-28 13:32 | DISCHARGE SUMMARY ---
Discharge Summary Admit Date: 04/23/23 Discharge Date: 04/28/23 Discharging Provider: Dr Crook Code Status: Do Not Attempt Resuscitation Condition at Discharge: Good Discharge Disposition: SNF DC/Xfer Discharge Facility [facility]: [facility] - DIAGNOSES Admission Diagnoses: Acute R MCA stroke Depression Hx Hip surgery - HPI History of Present Illness: - Problem List (1) Acute right MCA stroke Assessment/Plan: Assessment/Plan: Conclusion/Plan: NPO except sips and ice chips Possible NSAID induced gastritis and ulcer IV protonbix bid Surgery consulted by ER Plan fopr EGD in am Transfuse if Hb < 7 Verbal consent obtained for blood transfusion Per general surgery post EGD this a.m.: 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 Epi injected, biopsies taken. Plan to continue to monitor Hgb, treat with PPI and carafate prn epigastric pain. If patient rebleeds, I would plan to repeat EGD. Echocardiogram was completed with bubble study and showed 1. Overall left ventricular systolic function is normal with an ejection fraction of 60 to 65% 2. Impaired relaxation consistent with grade 1 diastolic dysfunction 3. The right ventricle size is normal 4. The right ventricular systolic function is normal. 5. No concerning cardiac valvular disease noted Will continue current medication regimen as determined by previous hospitalist. Awaiting senior care facility placement. (3) Depression Conclusion/Plan: Continue Lexapro in good spirits no SI or Hi (5) History of hip surgery Conclusion/Plan: Tylenol or moprhine prn pain Hold NSAIDS PT to work with patient - HOSPITAL COURSE Hospital Course: See HPI - ALLERGIES Allergies/Adverse Reactions: Allergies Allergy/AdvReac Type Severity Reaction Status Date / Time No Known Drug Allergies Allergy Verified 04/23/23 07:47 - MEDICATIONS Home Medications: Ambulatory Orders Medication Instructions Recorded Confirmed Acetaminophen [Tylenol] 650 mg PO Q4HR PRN #30 tab 04/28/23 Aspirin EC [Ecotrin] 81 mg PO DAILY #30 tab 04/28/23 Clopidogrel [Plavix] 75 mg PO DAILY #30 tab 04/28/23 Docusate Sodium 250Mg Capsule 250 - 500 mg PO DAILY #30 cap 04/28/23 [Colace 250Mg Capsule] Multivitamin W/Minerals [Theragran 1 tab PO DAILYWM #30 tab 04/28/23 M] polyethylene glycoL 3350 [Miralax] 17 gm PO DAILY #30 packet 04/28/23 - PHYSICAL EXAM AT DISCHARGE General Appearance: positive: No acute distress, Alert Eyes Bilateral: positive: Normal inspection Neck: positive: Nml inspection Respiratory: positive: No respiratory distress, Breath sounds nml Cardiovascular: positive: Regular rate & rhythm, No murmur Abdomen: positive: Non-tender Skin: positive: No rash Extremities: positive: Non-tender Neurologic/Psychiatric: positive: Oriented x3 - LABS Result Diagrams: 04/28/23 04:50 04/28/23 04:50 - TIME SPENT Time Spent in Discharge (Minutes): 45
[2023-04-28 14:13] VITALS: BP 143/73
--- NOTE | 2023-05-22 09:45 | PROVIDER PROGRESS NOTE ---
Assessment/Plan - Problem List (1) Acute right MCA stroke Assessment/Plan: (1) Acute right MCA stroke Assessment/Plan: Assessment/Plan: The patient presented outside of the window of having intervention such as tPA, despite RCA distribution strokes seen on brain imaging. Neuro stroke team was therefore not contacted by the ED, to give any other recommendations. His left arm mostly and left leg remain weak. I ordered CTA of head and neck with contrast which showed L ICA 50% stenosis His fasting lipid panel shows LDL of 59 (all labs were reviewed). This supports the Hx of weight loss and I did not order a statin. Plan: Remain on telemetry Neurochecks every 4 hours Allow permissive hypertension for 48 hours. I was planning on today resuming his BP meds Losartan, but he is orthostatic so will not order Losartan I ordered PT and OT for evaluation and treatment (but he came in late Tue and we had no PT or OT here until today, Tuesday). He agrees and the granddaughter Angela garcia in the room today, agrees he may need to go to SNF for rehab before returning home. I ordered a complete Echo with bubble study. With this stroke distribution, it suggests he had a "shower" of emboli, so he may have an intra-cardiac clot. April 27, 2023-echocardiogram with bubble study resulted and showed overall left ventricular systolic function is normal with an ejection fraction of 60 to 65%. Impaired relaxation consistent with grade 1 diastolic dysfunction. Right ventricular size is normal. Right ventricular systolic function is normal. No concerning cardiac valve disease noted.MRI of brain without contrast done April 23 showed multiple small acute infarctions in right MCA distribution. No evidence of acute intracranial bleed, midline shift or mass effect. Age-related volume loss and mild periventricular and deep white matter chronic small vessel ischemic changes noted. (2) Fall at home Impression: The patient had reported that he just fell because of the left arm and leg weakness and does not think he had syncope, he then crawled to a phone and called 911. On 04/24 his granddaughter Lilly and great granddaughter were in the room and the great granddaughter reported "my great grandpa was on the floor for 2 hours". In fact, Lilly said that when she came to be with him yesterday morning at 8 AM, she "found his shoes and his cane there, but no grandpa" and she had to call around to various hospitals to find him. I checked total CK to rule out rhabdomyolysis I ordered orthostatic vital signs be checked Plan: Start working with PT and OT today (3) Orthostatic hypotension His first set of orthostatic vital signs were done yesterday and showed a supine BP 105/56, heart rate 59. Sitting BP 99/54. With standing his heart rate sondra to 75. 2 L of IV NS was ordered. Plan: I will not order restart of his home Losartan med Continue to follow orthostatic vital signs daily Start working with PT and OT today April 27, 2023-patient's orthostatic changes have resolved (4) Poor memory Impression: On 04/24 his grand-daughter Lilly was in the room and gave me a more detailed Hx: When this patient's 7 months ago, Lilly moved 3 houses away from him, moving here from [place]. There is also a great granddaughter who Lilly shares custody with her ex, so the great granddaughter is also here [facility]. Lilly stays with the pt from 8 AM to 10 PM every day, also Lilly's mother, the patient's daughter Giovanna, comes over after work and makes dinner every night and they all 3 have dinner together, 7 days a week. This patient's memory is extremely poor, Lilly said. He does not member that he did go to see Dr. Mullins, his new PCP, last week Tuesday. It was the dentist's office that canceled his appointment for last , not Dr. Mullins. Plan: In my meeting with Lilly on 04/24, I advised that the patient now have 24/7 caregiving help in his house, since he wants to stay there as long as possible, given his poor memory and the recent fall. Lilly said that she could leave the house which she is in, 3 houses down from him, and move in with him. I requested a social work consult. April 27, 2023-patient's mental status has been gradually improving during his hospital stay (5) DM type 2 (diabetes mellitus, type 2) Conclusion/Plan: Patient admitted that he does not follow a diabetic diet or take any metformin which he used to take remotely or check his fingerstick glu at all. Lilly told me today that the patient told her that he had "diet-controlled diabetes" His A1c came back at 5.9 consistent with no DM or well controlled DM if he was on a diet Plan: I will cancel the diabetic diet, fingerstick checks, SS insulin coverage, hypoglycemia protocol I will request a consult from Sports Manager I ordered diabetic teaching, but I suspect he will not remember any teaching. Hairpiece Stylist will have to work with the daughter Giovanna and the granddaughter Lilly (6) MDS (myelodysplastic syndrome) Conclusion/Plan: As per history. He admitted that he has not seen his oncologist in about a year. His hemoglobin is 10.1 and this is where he usually runs, from my review of his EMRR Plan: Follow hemoglobin daily, would transfuse if <7 (7) CKD (chronic kidney disease) Conclusion/Plan: His admission creatinine is 1.6 (all labs were reviewed). I looked at his EMR, and he always runs creatinine of 1.6. Yesterday creat was 1.5, today 1.8. He was orthostatic yesterday and 2 L of NS were ordered yesterday afternoon. Plan: 2 L of IV NS were ordered yesterday afternoon, which should help the creat Avoid nephrotoxins (8) Noncompliance with medication regimen Conclusion/Plan: This patient flat out told me at admission that he only takes his Losartan, no other medications, no diabetic management He shared with me that his 7 months ago. He reported that his daughter checks on him and is the meal maker. He told me nothing about the granddaughter Lilly staying with him every day from 8 am to 10 pm. Plan: I will ask for social work evaluation for poss reactive depression Also Social Work to help with living situation/caregiving (9) Severe protein calorie malnutrition Conclusion/Plan: I reviewed his entire EMR and weight loss has been mentioned for several years. He has lost 15 pounds in under a year. There is significant loss of subcutaneous fat and muscle I ordered a high-calorie/protein supplements with meals Plan: Nutrition consult will be ordered (10) Psoriasis Conclusion/Plan: He used to be on methotrexate but has not taken it for about a year, he told our pharmacist. He told me it was his choice to stop this medication. Also he did say he has not seen a PCP in 1 year. THIS NOTE IS FOR VISIT ON April - Lab Result Fish Bone Diagrams: 04/28/23 04:50 04/28/23 04:50 Subjective - Subjective Patient Reports: Feeling Better, Resting Comfortably Objective Vital Signs: Oxygen O2 Source Room air General: Alert, Oriented x3, Cooperative HEENT: Atraumatic Neck: Supple Neuro: Alert, Focal Deficits, Oriented Times 3 Cardiovascular: Regular rate Respiratory: Chest non-tender Abdomen: Soft, No tenderness Extremities: No edema Skin: No rashes - Results Results: Laboratory Results WBC 8.1 x10^3/uL (4.8-10.8) 04/28/23 04:50 RBC 3.01 10^6/uL (4.70-6.10) L 04/28/23 04:50 Hgb 8.7 g/dL (14.0-18.0) L 04/28/23 04:50 Hct 27.8 % (42.0-52.0) L 04/28/23 04:50 MCV 92.4 fL (80.0-94.0) 04/28/23 04:50 MCH 28.9 pg (27.0-31.0) 04/28/23 04:50 MCHC 31.3 g/dL (32.0-36.0) L 04/28/23 04:50 RDW 14.1 % (12.0-15.0) 04/28/23 04:50 Plt Count 248 10^3/uL (130-450) 04/28/23 04:50 MPV 9.5 fL (7.4-11.4) 04/28/23 04:50 Neut # (Auto) 4.9 10^3/uL (1.5-6.6) 04/28/23 04:50 Lymph # (Auto) 1.4 10^3/uL (1.5-3.5) L 04/28/23 04:50 [place] # (Auto) 1.0 10^3/uL (0.0-1.0) 04/28/23 04:50 Eos # (Auto) 0.7 10^3/uL (0.0-0.7) 04/28/23 04:50 Baso # (Auto) 0.1 10^3/uL (0.0-0.1) 04/28/23 04:50 Absolute Nucleated RBC 0.00 x10^3/uL 04/28/23 04:50 Nucleated RBC % 0.0 /100WBC 04/28/23 04:50 VBG pH 7.401 (7.31-7.41) 04/28/23 04:50 Ionized Calcium 1.11 mmol/L (1.15-1.33) L 04/28/23 04:50 Sodium 140 mmol/L (135-145) 04/28/23 04:50 Potassium 4.6 mmol/L (3.5-5.0) 04/28/23 04:50 Chloride 109 mmol/L (101-111) 04/28/23 04:50 Carbon Dioxide 27 mmol/L (21-32) 04/28/23 04:50 Anion Gap 4.0 (6-13) L 04/28/23 04:50 BUN 33 mg/dL (6-20) H 04/28/23 04:50 Creatinine 1.5 mg/dL (0.6-1.2) H 04/28/23 04:50 Estimated GFR (MDRD) 44 (>89) L 04/28/23 04:50 Glucose 125 mg/dL (70-100) H 04/28/23 04:50 POC Whole Bld Glucose 107 mg/dL (70 - 100) H 04/25/23 07:49 Estimat Average Glucose 123 mg/dL (70-100) H 04/24/23 04:43 Hemoglobin A1c % 5.9 % (4.27-6.07) 04/24/23 04:43 Lactic Acid 1.1 mmol/L (0.5-2.2) 04/23/23 08:06 Calcium 8.3 mg/dL (8.5-10.3) L 04/28/23 04:50 Ionized Calcium YES 04/28/23 04:50 Phosphorus 2.6 mg/dL (2.5-4.6) 04/24/23 04:43 Magnesium 2.0 mg/dL (1.7-2.8) 04/24/23 04:43 Total Bilirubin 0.5 mg/dL (0.2-1.0) 04/23/23 08:06 AST 30 IU/L (10-42) 04/23/23 08:06 ALT 17 IU/L (10-60) 04/23/23 08:06 Alkaline Phosphatase 75 IU/L (42-121) 04/23/23 08:06 Total Creatine Kinase 474 IU/L (22-269) H 04/25/23 04:58 Total Protein 7.6 g/dL (6.7-8.2) 04/23/23 08:06 Albumin 3.8 g/dL (3.2-5.5) 04/23/23 08:06 Globulin 3.8 g/dL (2.1-4.2) 04/23/23 08:06 Albumin/Globulin Ratio 1.0 (1.0-2.2) 04/23/23 08:06 Triglycerides 50 mg/dL (-149) 04/24/23 04:43 Cholesterol 108 mg/dL (-199) 04/24/23 04:43 LDL Cholesterol, Calc 57 mg/dL (-129) 04/24/23 04:43 VLDL Cholesterol 10 mg/dL 04/24/23 04:43 HDL Cholesterol 41 mg/dL (60-) L 04/24/23 04:43 LDL/HDL Ratio 1.4 (<3.6) 04/24/23 04:43 Cholesterol/HDL Ratio 2.6 (<5.0) 04/24/23 04:43 Lipase 45 U/L (22-51) 04/23/23 08:06 TSH 1.65 uIU/mL (0.34-5.60) 04/23/23 08:06 Urine Color YELLOW 04/23/23 08:15 Urine Clarity CLEAR (CLEAR) 04/23/23 08:15 Urine pH 6.0 PH (5.0-7.5) 04/23/23 08:15 Ur Specific [place] 1.010 (1.002-1.030) 04/23/23 08:15 Urine Protein TRACE mg/dL (NEGATIVE) 04/23/23 08:15 Urine Glucose (UA) NEGATIVE mg/dL (NEGATIVE) 04/23/23 08:15 Urine Ketones NEGATIVE mg/dL (NEGATIVE) 04/23/23 08:15 Urine Occult Blood TRACE-INTA (NEGATIVE) 04/23/23 08:15 Urine Nitrite NEGATIVE (NEGATIVE) 04/23/23 08:15 Urine Bilirubin NEGATIVE (NEGATIVE) 04/23/23 08:15 Urine Urobilinogen 0.2 (NORMAL) E.U./dL (NORMAL) 04/23/23 08:15 Ur Leukocyte Esterase NEGATIVE (NEGATIVE) 04/23/23 08:15 Ur Microscopic Review NOT INDICATED 04/23/23 08:15 Urine Culture Comments NOT INDICATED 04/23/23 08:15 Nasal Adenovirus (PCR) NOT DETECTED 04/23/23 08:10 Nasal B. parapertussis DNA (PCR) NOT DETECTED 04/23/23 08:10 Nasal Coronavir 229E PCR NOT DETECTED 04/23/23 08:10 Nasal Coronavir HKU1 PCR NOT DETECTED 04/23/23 08:10 Nasal Coronavir NL63 PCR NOT DETECTED 04/23/23 08:10 Nasal Coronavir OC43 PCR NOT DETECTED 04/23/23 08:10 Nasal Enterovir/Rhinovir PCR NOT DETECTED 04/23/23 08:10 Nasal Influenza B PCR NOT DETECTED 04/23/23 08:10 Nasal Influenza A PCR NOT DETECTED 04/23/23 08:10 Nasal Parainfluen 1 PCR NOT DETECTED 04/23/23 08:10 Nasal Parainfluen 2 PCR NOT DETECTED 04/23/23 08:10 Nasal Parainfluen 3 PCR NOT DETECTED 04/23/23 08:10 Nasal Parainfluen 4 PCR NOT DETECTED 04/23/23 08:10 Nasal RSV (PCR) NOT DETECTED 04/23/23 08:10 Nasal B.pertussis DNA PCR NOT DETECTED 04/23/23 08:10 Nasal C.pneumoniae (PCR) NOT DETECTED 04/23/23 08:10 Louie Human Metapneumo PCR NOT DETECTED 04/23/23 08:10 Nasal M.pneumoniae (PCR) NOT DETECTED 04/23/23 08:10 Nasal SARS-CoV-2 (PCR) NOT DETECTED 04/23/23 08:10 ABX Reporting Has patient been on IV antibiotics over the past 48 hours?: No
--- NOTE | 2023-05-22 10:10 | Discharge Plan ---
Discharge Plan for SNF / [facility] - Discharge Plan And Transition Orders Problem Reviewed?: Yes Disposition: SNF DC/Xfer Condition: Good Allergies and Adverse Reactions: Allergies Allergy/AdvReac Type Severity Reaction Status Date / Time No Known Drug Allergies Allergy Verified 04/23/23 07:47 Assessment: (1) Acute right MCA stroke Assessment/Plan: Assessment/Plan: The patient presented outside of the window of having intervention such as tPA, despite RCA distribution strokes seen on brain imaging. Neuro stroke team was therefore not contacted by the ED, to give any other recommendations. His left arm mostly and left leg remain weak. I ordered CTA of head and neck with contrast which showed L ICA 50% stenosis His fasting lipid panel shows LDL of 59 (all labs were reviewed). This supports the Hx of weight loss and I did not order a statin. Plan: Remain on telemetry Neurochecks every 4 hours Allow permissive hypertension for 48 hours. I was planning on today resuming his BP meds Losartan, but he is orthostatic so will not order Losartan I ordered PT and OT for evaluation and treatment (but he came in late Tue and we had no PT or OT here until today, Tuesday). He agrees and the granddaughter Lilly in the room today, agrees he may need to go to SNF for rehab before returning home. I ordered a complete Echo with bubble study. With this stroke distribution, it suggests he had a "shower" of emboli, so he may have an intra-cardiac clot. April 27, 2023-echocardiogram with bubble study resulted and showed overall left ventricular systolic function is normal with an ejection fraction of 60 to 65%. Impaired relaxation consistent with grade 1 diastolic dysfunction. Right ventricular size is normal. Right ventricular systolic function is normal. No concerning cardiac valve disease noted.MRI of brain without contrast done April 23 showed multiple small acute infarctions in right MCA distribution. No evidence of acute intracranial bleed, midline shift or mass effect. Age-related volume loss and mild periventricular and deep white matter chronic small vessel ischemic changes noted. (2) Fall at home Impression: The patient had reported that he just fell because of the left arm and leg weakness and does not think he had syncope, he then crawled to a phone and called 911. On 04/24 his granddaughter Lilly and great granddaughter were in the room and the great granddaughter reported "my great grandpa was on the floor for 2 hours". In fact, Lilly said that when she came to be with him yesterday morning at 8 AM, she "found his shoes and his cane there, but no grandpa" and she had to call around to various hospitals to find him. I checked total CK to rule out rhabdomyolysis I ordered orthostatic vital signs be checked Plan: Start working with PT and OT today (3) Orthostatic hypotension His first set of orthostatic vital signs were done yesterday and showed a supine BP 105/56, heart rate 59. Sitting BP 99/54. With standing his heart rate sondra to 75. 2 L of IV NS was ordered. Plan: I will not order restart of his home Losartan med Continue to follow orthostatic vital signs daily Start working with PT and OT today April 27, 2023-patient's orthostatic changes have resolved (4) Poor memory Impression: On 04/24 his grand-daughter Lilly was in the room and gave me a more detailed Hx: When this patient's 7 months ago, Lilly moved 3 houses away from him, moving here from [place]. There is also a great granddaughter who Lilly s hares custody with her ex, so the great granddaughter is also here [facility]. Lilly stays with the pt from 8 AM to 10 PM every day, also Lilly's mother, the patient's daughter Giovanna, comes over after work and makes dinner every night and they all 3 have dinner together, 7 days a week. This patient's memory is extremely poor, Lilly said. He does not member that he did go to see Dr. Mullins, his new PCP, last week Tuesday. It was the dentist's office that canceled his appointment for last , not Dr. Mullins. Plan: In my meeting with Lilly on 04/24, I advised that the patient now have 24/7 caregiving help in his house, since he wants to stay there as long as possible, given his poor memory and the recent fall. Lilly said that she could leave the house which she is in, 3 houses down from him, and move in with him. I requested a social work consult. April 27, 2023-patient's mental status has been gradually improving during his hospital stay (5) DM type 2 (diabetes mellitus, type 2) Conclusion/Plan: Patient admitted that he does not follow a diabetic diet or take any metformin which he used to take remotely or check his fingerstick glu at all. Lilly told me today that the patient told her that he had "diet-controlled diabetes" His A1c came back at 5.9 consistent with no DM or well controlled DM if he was on a diet Plan: I will cancel the diabetic diet, fingerstick checks, SS insulin coverage, hypoglycemia protocol I will request a consult from Transition Mgr Rn I ordered diabetic teaching, but I suspect he will not remember any teaching. Nu tritionist will have to work with the daughter Giovanna and the granddaughter Lilly (6) MDS (myelodysplastic syndrome) Conclusion/Plan: As per history. He admitted that he has not seen his oncologist in about a year. His hemoglobin is 10.1 and this is where he usually runs, from my review of his EMRR Plan: Follow hemoglobin daily, would transfuse if <7 (7) CKD (chronic kidney disease) Conclusion/Plan: His admission creatinine is 1.6 (all labs were reviewed). I looked at his EMR, and he always runs creatinine of 1.6. Yesterday creat was 1.5, today 1.8. He was orthostatic yesterday and 2 L of NS were ordered yesterday afternoon. Plan: 2 L of IV NS were ordered yesterday afternoon, which should help the creat Avoid nephrotoxins (8) Noncompliance with medication regimen Conclusion/Plan: This patient flat out told me at admission that he only takes his Losartan, no other medications, no diabetic management He shared with me that his 7 months ago. He reported that his daughter checks on him and is the meal maker. He told me nothing about the granddaughter Lilly staying with him every day from 8 am to 10 pm. Plan: I will ask for social work evaluation for poss reactive depression Also Social Work to help with living situation/caregiving (9) Severe protein calorie malnutrition Conclusion/Plan: I reviewed his entire EMR and weight loss has been mentioned for several years. He has lost 15 pounds in under a year. There is significant loss of subcutaneous fat and muscle I ordered a high-calorie/protein supplements with meals Plan: Nutrition consult will be ordered (10) Psoriasis Conclusion/Plan: He used to be on methotrexate but has not taken it for about a year, he told our pharmacist. He told me it was his choice to stop this medication. Also he did say he has not seen a PCP in 1 year. - SNF / [facility] Transition Orders Admit to (Facility): [facility] Discharge Diagnosis: Acute right MCA stroke T2DM MDS CKD Noncompliance with meds Severe protein calorie malnutrition Medicare Certification Statement: I certify that [facility] Hospital prison care is medically necessary on a continuing basis for any of the conditions for which she/he is receiving care during hospitalization. Notify PCP of admission and forward orders to primary provider for signature. Other Notification Orders: Call PCP immediately if patient develops dyspnea, chest pain/tightness or edema. House Bowel Program: Yes Additional Bowel Program Orders: If no BM after 2 days, nurse may give M.O.M. 30ml PO PRN and/or ducolax Supp 1 GA and/or JUAN CARLOS 250mg P.O., and/or senna 1-2 tabs PO. On day 3 nurse may give repeat above order until residents constipation is resolved. Medication Orders: PLEASE REFER TO THE DISCHARGE MEDICATION LIST. - Medications New Prescriptions: Acetaminophen [Tylenol] 650 mg PO Q4HR PRN #30 tab PRN Reason: Pain 1 to 4, or Fever Docusate Sodium 250Mg Capsule [Colace 250Mg Capsule] 250 - 500 mg PO DAILY #30 cap Aspirin EC [Ecotrin] 81 mg PO DAILY #30 tab polyethylene glycoL 3350 [Miralax] 17 gm PO DAILY #30 packet Clopidogrel [Plavix] 75 mg PO DAILY #30 tab Multivitamin W/Minerals [Theragran M] 1 tab PO DAILYWM #30 tab - Diet Type: Geriatric - Therapies | Activity Therapy: Evaluation | Treat if indicated: Speech, PT, OT Assistance Devices: Wheelchair
--- NOTE | 2023-05-22 10:24 | DISCHARGE SUMMARY ---
Discharge Summary Admit Date: 04/23/23 Code Status: Do Not Attempt Resuscitation Condition at Discharge: Good Discharge Disposition: SNF DC/Xfer Discharge Facility Name: [facility] - DIAGNOSES Admission Diagnoses: Acute right MCA stroke Fall at Home Orthostatic hypotension Poor memory T2DM MDS CKD Severe protein calorie malnutrition Discharge Diagnoses with Status of Each Condition: Right MCA stroke -stable orthostatic hypotension -resolved [id number] severe protein calorie malnutrition - HPI History of Present Illness: This is an 87-year-old male who lives alone since his 7 mos ago and daughter checks on him daily. He has a history of diabetes but is on no meds and does not follow a diabetic diet because "of laziness", has a Hx of myelodysplastic syndrome and used to followed by Dr. Apple at [facility] Oncology clinic here, but not for the past year, history of CKD, and psoriasis remotely on methotrexate. He was just about to meet his new provider Dr. Mullins in [place] 2 days ago but their office to cancel that appointment. The patient started to develop left leg and left arm weakness yesterday, but he is vague about when it started. This morning while he was preparing breakfast he got more weak and fell in his kitchen, does not think he blacked out, was too weak to stand and was able to crawl over to the phone and call 911. There is no ambulance run sheet in this EMR to evaluate what his vital signs were at the scene. He presented to the emergency room and had the left arm and leg weakness persisting. He underwent a CT of the head that showed no acute findings. He underwent brain MRI that showed acute multiple small strokes in theright frontoparietal region. He received aspirin and Plavix in the ED. The ED provider called me and we spoke about this patient. He is being admitted for evaluation and management of a stroke. I discussed his CODE BLUE wishes. He wishes to be a DNR/DNI, and "let nature take its course". - CONSULTS | PROCEDURES Consultations: Telestroke - HOSPITAL COURSE Hospital Course: (1) Acute right MCA stroke Assessment/Plan: Assessment/Plan: The patient presented outside of the window of having intervention such as tPA, despite RCA distribution strokes seen on brain imaging. Neuro stroke team was therefore not contacted by the ED, to give any other recommendations. His left arm mostly and left leg remain weak. I ordered CTA of head and neck with contrast which showed L ICA 50% stenosis His fasting lipid panel shows LDL of 59 (all labs were reviewed). This supports the Hx of weight loss and I did not order a statin. Plan: Remain on telemetry Neurochecks every 4 hours Allow permissive hypertension for 48 hours. I was planning on today resuming his BP meds Losartan, but he is orthostatic so will not order Losartan I ordered PT and OT for evaluation and treatment (but he came in late Tue and we had no PT or OT here until today, Tuesday). He agrees and the granddaughter Lilly in the room today, agrees he may need to go to SNF for rehab before returning home. I ordered a complete Echo with bubble study. With this stroke distribution, it suggests he had a "shower" of emboli, so he may have an intra-cardiac clot. April 27, 2023-echocardiogram with bubble study resulted and showed overall left ventricular systolic function is normal with an ejection fraction of 60 to 65%. Impaired relaxation consistent with grade 1 diastolic dysfunction. Right ventricular size is normal. Right ventricular systolic function is normal. No concerning cardiac valve disease noted.MRI of brain without contrast done April 23 showed multiple small acute infarctions in right MCA distribution. No evidence of acute intracranial bleed, midline shift or mass effect. Age-related volume loss and mild periventricular and deep white matter chronic small vessel ischemic changes noted. (2) Fall at home Impression: The patient had reported that he just fell because of the left arm and leg weakness and does not think he had syncope, he then crawled to a phone and called 911. On 04/24 his granddaughter Lilly and great granddaughter were in the room and the great granddaughter reported "my great grandpa was on the floor for 2 hours". In fact, Lilly said that when she came to be with him yesterday morning at 8 AM, she "found his shoes and his cane there, but no grandpa" and she had to call around to various hospitals to find him. I checked total CK to rule out rhabdomyolysis I ordered orthostatic vital signs be checked Plan: Start working with PT and OT today (3) Orthostatic hypotension His first set of orthostatic vital signs were done yesterday and showed a supine BP 105/56, heart rate 59. Sitting BP 99/54. With standing his heart rate sondra to 75. 2 L of IV NS was ordered. Plan: I will not order restart of his home Losartan med Continue to follow orthostatic vital signs daily Start working with PT and OT today April 27, 2023-patient's orthostatic changes have resolved (4) Poor memory Impression: On 04/24 his grand-daughter Lilly was in the room and gave me a more detailed Hx: When this patient's 7 months ago, Lilly moved 3 houses away from him, moving here from [place]. There is also a great granddaughter who Lilly shares custody with her ex, so the great granddaughter is also here [facility]. Lilly stays with the pt from 8 AM to 10 PM every day, also Lilly's mother, the patient's daughter Giovanna, comes over after work and makes dinner every night and they all 3 have dinner together, 7 days a week. This patient's memory is extremely poor, Lilly said. He does not member that he did go to see Dr. Mullins, his new PCP, last week Tuesday. It was the dentist's office that canceled his appointment for last , not Dr. Mullins. Plan: In my meeting with Lilly on 04/24, I advised that the patient now have 24/7 caregiving help in his house, since he wants to stay there as long as possible, given his poor memory and the recent fall. Lilly said that she could leave the house which she is in, 3 houses down from him, and move in with him. I requested a social work consult. April 27, 2023-patient's mental status has been gradually improving during his hospital stay (5) DM type 2 (diabetes mellitus, type 2) Conclusion/Plan: Patient admitted that he does not follow a diabetic diet or take any metformin which he used to take remotely or check his fingerstick glu at all. Lilly told me today that the patient told her that he had "diet-controlled diabetes" His A1c came back at 5.9 consistent with no DM or well controlled DM if he was on a diet Plan: I will cancel the diabetic diet, fingerstick checks, SS insulin coverage, hypoglycemia protocol I will request a consult from Tool Tender I ordered diabetic teaching, but I suspect he will not remember any teaching. Carton Machine Operator will have to work with the daughter Giovanna and the granddaughter Lilly (6) MDS (myelodysplastic syndrome) Conclusion/Plan: As per history. He admitted that he has not seen his oncologist in about a year. His hemoglobin is 10.1 and this is where he usually runs, from my review of his EMRR Plan: Follow hemoglobin daily, would transfuse if <7 (7) CKD (chronic kidney disease) Conclusion/Plan: His admission creatinine is 1.6 (all labs were reviewed). I looked at his EMR, and he always runs creatinine of 1.6. Yesterday creat was 1.5, today 1.8. He was orthostatic yesterday and 2 L of NS were ordered yesterday afternoon. Plan: 2 L of IV NS were ordered yesterday afternoon, which should help the creat Avoid nephrotoxins - ALLERGIES Allergies/Adverse Reactions: Allergies Allergy/AdvReac Type Severity Reaction Status Date / Time No Known Drug Allergies Allergy Verified 04/23/23 07:47 - MEDICATIONS Home Medications: Ambulatory Orders Medication Instructions Recorded Confirmed Acetaminophen [Tylenol] 650 mg PO Q4HR PRN #30 tab 04/28/23 Aspirin EC [Ecotrin] 81 mg PO DAILY #30 tab 04/28/23 Clopidogrel [Plavix] 75 mg PO DAILY #30 tab 04/28/23 Docusate Sodium 250Mg Capsule 250 - 500 mg PO DAILY #30 cap 04/28/23 [Colace 250Mg Capsule] Multivitamin W/Minerals [Theragran 1 tab PO DAILYWM #30 tab 04/28/23 M] polyethylene glycoL 3350 [Miralax] 17 gm PO DAILY #30 packet 04/28/23 - PHYSICAL EXAM AT DISCHARGE General Appearance: positive: No acute distress, Alert Eyes Bilateral: positive: Normal inspection Neck: positive: Nml inspection Respiratory: positive: Chest non-tender Abdomen: positive: Non-tender Skin: positive: No rash Extremities: positive: Non-tender Neurologic/Psychiatric: positive: Oriented x3, Mood/affect nml - LABS Result Diagrams: 04/28/23 04:50 04/28/23 04:50 - TIME SPENT Time Spent in Discharge (Minutes): 35
== END 2023-04-28 14:25 | DRG 64 ==
LOC: EDUNIT# → SUPCPDRO 07:39 → ED 07:39 → MS2 13:08
PROVIDERS: ADMIT Internal Medicine; ATTEND Internal Medicine
DX: I63.9 Cerebral infarction, unspecified (principal); I63.411 Cerebral infarction due to embolism of right middle cerebral artery; E43 Unspecified severe protein-calorie malnutrition; I10 Essential (primary) hypertension; E11.9 Type 2 diabetes mellitus without complications; D64.9 Anemia, unspecified; N28.9 Disorder of kidney and ureter, unspecified; Z20.822 Contact with and (suspected) exposure to COVID-19; Z79.84 Long term (current) use of oral hypoglycemic drugs; G81.94 Hemiplegia, unspecified affecting left nondominant side; R29.703 NIHSS score 3; I95.1 Orthostatic hypotension; E11.22 Type 2 diabetes mellitus with diabetic chronic kidney disease; N18.9 Chronic kidney disease, unspecified; D46.9 Myelodysplastic syndrome, unspecified; I13.10 Hypertensive heart and chronic kidney disease without heart failure, with stage 1 through stage 4 chronic kidney disease, or unspecified chronic kidney disease; E78.00 Pure hypercholesterolemia, unspecified; G47.30 Sleep apnea, unspecified; N40.0 Benign prostatic hyperplasia without lower urinary tract symptoms; H54.7 Unspecified visual loss; L40.9 Psoriasis, unspecified; R41.3 Other amnesia; Z66 Do not resuscitate; Z79.899 Other long term (current) drug therapy; Z87.891 Personal history of nicotine dependence; Z91.118 Patient's noncompliance with dietary regimen for other reason; Z91.148 Patient's other noncompliance with medication regimen for other reason
CPT/HCPCS: 36415; 70450; 70496; 70498; 70551; 71045; 80048; 80053; 80061; 81003; 82330; 82550; 83036; 83605; 83690; 83735; 84100; 84443; 85018; 85025; 87633; 93005; 93306; 97110; 97162; 97166; 97530; 97535; 99285; A9270; Q9967; 81001; 83721; 87086

== ENCOUNTER 2023-05-13 13:49 | Outpatient (CLI) | payer MEDICARE, OTHER ==
[2023-05-13 14:27] LABS: CHOL/HDL RATIO 2.7 (<5.0); CHOLESTEROL 111 mg/dL; HDL CHOLESTEROL 41 mg/dL; LDL CHOLESTEROL,CALCULATED 55 mg/dL; LDL/HDL RATIO 1.3 (<3.6); TRIGLYCERIDES 76 mg/dL; VLDL CHOLESTEROL 15 mg/dL
== END 2023-05-13 13:50 | disposition home or self-care (01) ==
LOC: LAB.R 13:49
PROVIDERS: ATTEND Registered Nurse
DX: D46.9 Myelodysplastic syndrome, unspecified (principal)
CPT/HCPCS: 80061; 83721

== ENCOUNTER 2023-05-26 21:37 | Outpatient (CLI) | payer MEDICARE, OTHER | END 2023-05-26 23:59 | disposition left against medical advice (07) | LOC: EMS 21:37 | DX: R41.0 Disorientation, unspecified (principal) ==

== ENCOUNTER 2023-09-30 22:26 | Outpatient (CLI) | payer MEDICARE, OTHER | END 2023-09-30 23:59 | disposition short-term general hospital (02) | LOC: EMS 22:26 | DX: R50.9 Fever, unspecified (principal); R53.1 Weakness; R05.9 Cough, unspecified; R11.10 Vomiting, unspecified | CPT/HCPCS: A0425; A0429 ==

== ENCOUNTER 2023-11-04 09:15 | Outpatient (CLI) | payer MEDICARE, OTHER | END 2023-11-04 23:59 | disposition EMS.NT | LOC: EMS 09:15 | DX: R53.1 Weakness (principal); R50.9 Fever, unspecified ==